=== PATIENT | female | born 1945 | race Caucasian/White ===

== ENCOUNTER 2022-07-25 21:09 | Outpatient (REF) | payer MEDICARE, SELFPAY | END 2022-07-25 21:10 | disposition home or self-care (01) | LOC: NCHCN 21:09 | PROVIDERS: Visit Provider Physician Assistant Medical | DX: R82.998 Other abnormal findings in urine; R41.0 Disorientation, unspecified | CPT/HCPCS: 87077; 87086; 87186 ==

== ENCOUNTER 2022-08-30 14:47 | Outpatient (REF) | payer MEDICARE, SELFPAY ==
[2022-08-30 22:19] LABS: Hemoglobin A1C 7.2 % (<5.7)
[2022-08-30 22:48] LABS: ALT 64 U/L (14-59); AST 41 U/L (15-37); Albumin 3.7 g/dL (3.4-5.0); Alkaline Phosphatase 172 U/L (46-116); Anion Gap 10.1 mmol/L (3-11); BUN 34 mg/dL (7-18); Bilirubin, Total 0.2 mg/dL (0.2-1.0); CO2 24.9 mmol/L (21.0-32.0); CREATININE 1.7 mg/dL (0.55-1.02); Calcium 9.3 mg/dL (8.5-10.1); Calculated LDL 168 mg/dL (<100); Chloride 107 mmol/L (98-107); Cholesterol 251 mg/dL (<200); Estimated GFR 30.89 (mL/min/1.73m2); Glucose 226 mg/dL (74-106); HDL Cholesterol 50 mg/dL (40-60); Potassium 4.9 mmol/L (3.5-5.1); Sodium 142 mmol/L (136-145); TSH 0.99 uIU/mL (0.36-3.74); Total Protein 8.1 g/dL (6.4-8.2); Triglyceride 167 mg/dL (<150)
== END 2022-08-30 14:48 | disposition home or self-care (01) ==
LOC: NCHCN 14:47
PROVIDERS: Visit Provider Physician Assistant Medical
DX: E11.9 Type 2 diabetes mellitus without complications (principal); E03.9 Hypothyroidism, unspecified; N18.30 Chronic kidney disease, stage 3 unspecified
CPT/HCPCS: 80053; 80061; 83036; 84443

== ENCOUNTER 2022-10-12 11:45 | Inpatient (IN) | payer MEDICARE, SELFPAY ==
[2022-10-12] VITALS (67 sets, daily range): BP systolic 51–109; BP diastolic 20–82; PULSE 54–120; RESP 15–35; TEMP 36.7–38; O2SAT 67–100
--- NOTE | 2022-10-12 11:45 | DI.CT_ITS ---
Exam(s) CT HEAD WO EXAM: CT HEAD WO CLINICAL HISTORY: ams vomiting. TECHNIQUE: Imaging Protocol: Axial computed tomography images with coronal and sagittal reformatted images were created and reviewed COMPARISON: No exams were available for comparison FINDINGS: There are no skull fractures. There is no fluid in the visualized paranasal sinuses. There is no evidence of intracranial hemorrhage, mass effect, or shift of midline structures. There are no extra-axial fluid collections. The ventricles are not enlarged or shifted and there is no blo od within the ventricular system nor within the basal cisterns. IMPRESSION: No acute intracranial findings on this noninfused CT scan of the brain. RADIATION DOSE DELIVERED: 728.41mGy.cm Total DLP DATA REPOSITORY: All CT scans at this facility are submitted to the National Radiology Data Registry (NRDR) Dose Index Registry (DIR) with the [employer] (ACR). RADIATION OPTIMIZATION: All CT scans at this facility use at least one of these dose optimization te chniques: automated exposure control; mA and/or kV adjustment per patient size (includes targeted exa ms where dose is matched to clinical indication); or iterative reconstruction.
--- NOTE | 2022-10-12 11:57 | W.ED.GENAD ---
Discharge Plan Disposition Patient Disposition: Admit to [facility] Condition: Stable Discharge Details Chief Complaint: GenMedical Clinical Impression: Acute pyelonephritis, Steroid-induced adrenal suppression, GAMAL (acute kidney injury), Acute dehydration ED Provider: Bart Padilla Home Meds and New Rx's Prescriptions: No Action pramipexole 1 mg Tablet 1 mg PO 1XD pantoprazole 20 mg Tablet,Delayed Release (Dr/Ec) 20 mg PO 1XD lorazepam 0.5 mg Tablet 0.5 mg PO BID PRN ascorbic acid (vitamin C) [Vitamin C] 500 mg Tablet 500 mg PO 2XD mirtazapine 30 mg Tablet 30 mg PO DAILY aspirin 81 mg Tablet,Chewable 81 mg PO 1XD hydroxychloroquine 200 mg Tablet 200 mg PO 2XD sertraline 50 mg Tablet 50 mg PO DAILY insulin lispro [Humalog Pen] 100 unit/mL Insulin Pen 1 sliding scale dose SUBCUT USEASDIRECTD Rx Instructions: am + supper pregabalin 150 mg Capsule 150 mg PO 2XD levothyroxine 112 mcg Capsule 112 mcg PO 1XD cranberry 450 mg Tablet 450 mg PO BID Rx Instructions: administer with meals Toujeo Max U-300 SoloStar 300 unit/mL (3 mL) Insulin Pen 1 unit SUBCUT 1XD Rx Instructions: bedtime Medical Decision Making 76-year-old female history of lupus and diabetes brought in for evaluation of vomiting altered mental status and hypotension in the field; history physical limited by patient's mental status and clinical status, appears pale dry confused and mildly uncomfortable. Emesis on face and clothing. Consider bacterial infection such as UTI pneumonia intra-abdominal infection versus intracranial process such as bleed or trauma versus viral syndrome versus metabolic derangement versus dehydration or DKA. Screening labs imaging fluids empiric antibiotics blood cultures. Admission likely. 13: 39 systolic blood pressures in the 70s, adding a second liter of normal saline. Of note discussed recent history with daughter, patient been on long-term steroids over the last 3 weeks and recently stopped 3 days ago. Consider hypoadrenergic state in the setting of withdrawal of recent steroid therapy. Likely component of viral bacterial infection. History of cholecystectomy noted derangement of her LFTs. Pending CT abdomen pelvis and head. Discussed goals of care with patient and family patient is full code 15: 46 improvement of mental status and perfusion after stress dose steroid dose hydrocortisone 100 mg IV. We will continue with fluid hydration as patient still appears dry clinically and is in no respiratory distress and is putting out good urine. Evidence of pyelonephritis given UTI and CT findings. Will admit for continued hydration and antibiotics HPI General Date/Time Provider Initiated Documentation: 10/12/22 11:45. HPI Narrative: 76-year-old female history of lupus, diabetes presents brought in for evaluation of low blood pressure vomiting and altered mental status. Related Data Home Medications Medication Instructions Recorded Confirmed ascorbic acid (vitamin C) 500 mg 500 mg PO 2XD 10/12/22 10/12/22 tablet (Vitamin C) aspirin 81 mg chewable tablet 81 mg PO 1XD 10/12/22 10/12/22 cranberry fruit 450 mg tablet 450 mg PO BID 10/12/22 10/12/22 (cranberry) hydroxychloroquine 200 mg tablet 200 mg PO 2XD 10/12/22 10/12/22 insulin glargine U-300 conc 300 1 unit subcut 1XD 10/12/22 10/12/22 unit/mL (3 mL) subcutaneous pen (Toujeo Max U-300 SoloStar) insulin lispro 100 unit/mL 1 sliding scale dose subcut 10/12/22 10/12/22 subcutaneous pen USEASDIRECTD levothyroxine 112 mcg capsule 112 mcg PO 1XD 10/12/22 10/12/22 lorazepam 0.5 mg tablet 0.5 mg PO BID PRN 10/12/22 10/12/22 mirtazapine 30 mg tablet 30 mg PO DAILY 10/12/22 10/12/22 pantoprazole 20 mg tablet,delayed 20 mg PO 1XD 10/12/22 10/12/22 release pramipexole 1 mg tablet 1 mg PO 1XD 10/12/22 10/12/22 pregabalin 150 mg capsule 150 mg PO 2XD 10/12/22 10/12/22 sertraline 50 mg tablet 50 mg PO DAILY 10/12/22 10/12/22 Allergies Allergy/AdvReac Type Severity Reaction Status Date / Time adhesive tape Allergy Unverified 10/12/22 12:20 naproxen Allergy Unverified 10/12/22 12:20 Penicillins Allergy Unverified 10/12/22 12:20 Sulfa (Sulfonamide Allergy Unverified 10/12/22 12:20 Antibiotics) zolpidem [From Ambien] Allergy Unverified 10/12/22 12:20 General Stated Complaint: GenMedical TRAE: 2 Review of Systems Narrative: Review of Systems Constitutional: negative Eyes: negative ENT: negative Cardiovascular: negative Respiratory: negative Gastrointestinal: Vomiting : negative Musculoskeletal: negative Skin: negative Neurologic: AMS Psych: negative PFSH All Active Problems (Updated 10/12/22 @ 16:14 by Bart Padilla MD) Acute pyelonephritis (Acute) Steroid-induced adrenal suppression (Acute) GAMAL (acute kidney injury) (Acute) Acute dehydration (Acute) Social History Smoking/Tobacco Use Status: Never Smoking risk assessment performed?: Yes Alcohol Intake: current Drug use: Never Substance use type: does not use Do you feel safe at home: Yes Do you feel safe in your relationship?: Yes Exam Narrative Exam Narrative: Physical Examination General: Confused, fatigued HEENT: normocephalic, atraumatic; PERRL, EOM intact, conjunctiva normal; dry oral mucosa Neck: supple, trachea midline; full ROM Chest: normal to inspection Respiratory: normal respiratory effort, speaking in full sentences, clear to auscultation, no wheezing, rales or rhonchi Cardiac: regular rate, regular rhythm, S1S2 intact, no murmurs rubs or gallops GI: abdomen soft, non-tender, non-distended; no palpable mass or hepatosplenomegaly; emesis on clothing and face Skin: Pallor, dry Neuro: Disoriented however following commands Extremities: No signs of trauma Course Vital Signs Vital signs: Vital Signs Temperature 37.4 C 10/12/22 11:48 Pulse 90 10/12/22 11:48 Respiratory Rate 30 H 10/12/22 11:48 Blood Pressure 109/61 10/12/22 11:48 Pulse Oximetry 95 10/12/22 11:48 Temperature 37.4 C 10/12/22 11:48 Temperature Source Oral 10/12/22 11:48 Pulse 90 10/12/22 11:48 Respiratory Rate 30 H 10/12/22 11:48 Blood Pressure 109/61 10/12/22 11:48 Pulse Oximetry 95 10/12/22 11:48 Oxygen Delivery Method Room Air 10/12/22 11:48 Oxygen Flow Rate 0 10/12/22 11:48 Pain Level 0 10/12/22 11:48 Lab/Test Results Lab/Test Results: 10/12/22 11:50 Blood Blood Culture - Pending 10/12/22 11:50 Blood Blood Culture - Pending
[2022-10-12] MEDS: CEFEPIME 2 GM in Normal Saline 100 ML IVPB (12:08)
[2022-10-12] MEDS: Ondansetron 4 MG/2 ML VIAL IVP (12:08)
[2022-10-12] MEDS: Normal Saline 1,000 ML 1000 ML IV ×3 (12:09→23:25)
[2022-10-12 12:25] LABS: BE (Venous) -7 mmol/L (-2-3); HCO3 (Venous) 19 mmol/L (23-28); O2 Sat (Venous) 32 %; TCO2 (Venous) 18 mmol/L (24-29); pCO2 (Venous) 37 mmHg (41-51); pH (Venous) 7.33 (7.31-7.41); pO2 (Venous) 20 mmHg
[2022-10-12 12:29] LABS: HCT 38.2 % (36.0-46.0); HGB 12.8 g/dL (11.2-15.7); MCH 29.4 pg (27.0-33.0); MCHC 33.5 % (32.0-36.0); MCV 88 fL (80-95); MPV 11.2 fL (8.0-11.0); RBC 4.35 10^6/uL (3.93-5.22); RDW 14.6 % (11.7-14.6); RDW-SD 47.3 fL; WBC 8.46 10^3/uL (4.4-10.8)
[2022-10-12] MEDS: VANCOMYCIN/WATER (PEG) 1.5 GM/300 ML BAG IV (12:37)
[2022-10-12 12:50] LABS: Absolute Basophil Count 0.08 10^3/uL (0.0-0.2); Absolute Lymphocyte Count 0.42 10^3/uL (1.2-3.4); Absolute Neutrophil Count 7.95 10^3/uL (1.2-6.7); Bands % 12; Diff Comment Manual Differential; Platelet Count 86 10^3/uL (130-400); RBC Morphology Normal
[2022-10-12 12:51] LABS: ALT 197 U/L (14-59); AST 195 U/L (15-37); Albumin 2.7 g/dL (3.4-5.0); Alkaline Phosphatase 201 U/L (46-116); Anion Gap 14.3 mmol/L (3-11); BUN 48 mg/dL (7-18); CO2 19.7 mmol/L (21.0-32.0); Calcium 8.6 mg/dL (8.5-10.1); Chloride 102 mmol/L (98-107); Estimated GFR 15.62 (mL/min/1.73m2); Glucose 393 mg/dL (74-106); Lipase 29 U/L (16-77); Magnesium 1.4 mg/dL (1.8-2.4); Potassium 3.6 mmol/L (3.5-5.1); Sodium 136 mmol/L (136-145); TSH (W/Ref FT4) 0.26 uIU/mL (0.36-3.74)
[2022-10-12 13:20] LABS: FREE T4 1.28 ng/dL (0.76-1.46)
[2022-10-12 13:44] LABS: Bilirubin Negative (Negative); Blood Moderate (Negative); Clarity Cloudy (Clear); Glucose Negative (Negative); Ketones Negative (Negative); Leukocyte Esterase Moderate (Negative); Nitrite Negative (Negative)
[2022-10-12 13:52] LABS: Bacteria Many HPF (Negative); C & S Indicated? Yes; Casts 3-5 Hyaline LPF (Negative); Crystals Negative HPF (Negative); Epithelial Cells Few HPF (Negative); Mucus Negative (Negative); WBC 20-50 HPF (0-5)
--- NOTE | 2022-10-12 14:00 | DI.CT_ITS ---
Exam(s) CT ABDOMEN PELVIS WO EXAM: CT ABDOMEN PELVIS WO CLINICAL HISTORY: vomiting, ams, hypotension. TECHNIQUE: Imaging Protocol: Axial computed tomography images with coronal and sagittal reformatted images were created and reviewed CONTRAST MATERIAL: Intravenous: none Oral: None COMPARISON: No exams were available for comparison FINDINGS: VISUALIZED LUNG BASES: Mild infiltrate in both lung bases, specifically in the posterior basal segmen ts of both lower lobes. No significant pleural effusions evident.. ABDOMEN: There is no ascites. LIVER: There are no obvious focal hepatic lesions evident of this noninfused study. GALLBLADDER/BILIARY: Gallbladder is surgically absent. CBD is not dilated. PANCREAS: No evidence of pancreatic mass nor dilatation of the pancreatic duct. SPLEEN: Spleen is not enlarged. No obvious intrasplenic lesions. ADRENALS: There are no significant adrenal masses. KIDNEYS:Right kidney appears unremarkable. Left kidney is abnormal. There is a small 2 millimeter s olitary calculus in the mid-lower pole noted. There is some streaking in the region of the left jannet l pelvis and perinephric streaking on the left side noted. There is air-gas within the mid pole and inferior pole infundibulum I and there is some perinephric streaking around the inferior pole of the left kidney. There is also some air-gas with in the nondilated left ureter. There is no obvious rad iopaque calculus evident in the nondilated left ureter. A Montelongo catheter is noted in the collapsed u rinary bladder.. ABDOMINAL AORTA: Abdominal aorta is not enlarged. LYMPH NODES: There is no retroperitoneal nor paraaortic adenopathy. ABDOMINAL WALL: There are subcutaneous densities over both sides the abdomen which are associated wit h overlying skin thickening. Largest on the right side and measures approximately 6 cm wide by 1.5 c m deep. These may be hematomas from injections sites. GI: There is no evidence of bowel obstruction, free air, nor abscess. PELVIS: LYMPH NODES: There is no intrapelvic nor inguinal adenopathy. GI: No evidence of appendicitis.No evidence of sigmoid diverticulitis. URINARY BLADDER: Montelongo catheter in collapsed bladder. REPRODUCTIVE: Uterus is surgically absent. No significant adnexal masses. No free fluid in the pelv is. OSSEOUS: There are symmetrical healing fractures of both inferior pubic rami. Superior pubic rami ar e intact as are the ischial tuberosities and there are no hip fractures nor other pelvic fractures. Multiple healing left rib fractures noted. These involve the posterior aspect of the left 10th and 1 1th ribs. No obvious acute rib fractures identified There is mild loss of height of L4 vertebral body without acute features. IMPRESSION: 1. The main findings here related to the left kidney where there is streaking around the left renal p joseph and air-gas in the nondilated upper left ureter and left renal collecting system. There is a s mall 2 millimeter calculus in the mid-lower pole the left kidney noted. 2. Opposite-right kidney appears unremarkable. 3. Montelongo catheter is noted in the collapsed urinary bladder. 4. Mild infiltrates noted in both lung bases. RADIATION DOSE DELIVERED: 1,232.62mGy.cm Total DLP DATA REPOSITORY: All CT scans at this facility are submitted to the National Radiology Data Registry (NRDR) Dose Index Registry (DIR) with the [employer] (ACR). RADIATION OPTIMIZATION: All CT scans at this facility use at least one of these dose optimization te chniques: automated exposure control; mA and/or kV adjustment per patient size (includes targeted exa ms where dose is matched to clinical indication); or iterative reconstruction.
--- NOTE | 2022-10-12 14:08 | DI.RAD_ITS ---
Exam(s) XR CHEST 2V PA LATERAL EXAM: XR CHEST 2V PA LATERAL CLINICAL HISTORY: ams, hypotension. TECHNIQUE: 2D digital imaging was performed. COMPARISON: No exams were available for comparison FINDINGS: 2 views: Heart size is normal. The mediastinum is not widened. Lungs are clear. No infiltrates nor pleural effusions. IMPRESSION: No acute pulmonary findings. DATA REPOSITORY: RADIATION DOSE DELIVERED:
[2022-10-12] MEDS: Hydrocortisone SOD SUC. 100 MG VIAL IVP (14:40)
[2022-10-12] MEDS: Normal Saline 500 ML IV (16:00)
[2022-10-12] MEDS: Normal Saline 1,000 ML 999 ML IV (18:01)
--- NOTE | 2022-10-12 18:08 | HPE_ITS ---
Date of service: 10/12/22 Time of Service: 18:08 Assessment and Plan Assessment and plan (1) Septic shock: Status: Acute Assessment and plan: patient presented w/ signs and symptoms of septic shock including acute encephalopathy, GAMAL, hepatic insufficiency, however she seems to be responding to iv fluids and antibiotics and corticosteroids at stress dose levels. I would not hesitate to intiate norepinephrine for pressure support if she is unable to maintain her MAP of 65 mm or SBP over 95 mm especially if her mentation worsens or her urine output drops off. At present her cognitive impairment has improved and her urine output is picking up. she is currently on her 3rd liter of fluids. she has no hx of CHF/KS and therefore theoretically should tolerate fluids. If she has hypotension after the 3rd liter then I would start norepinephrine. I would broaden her antibiotic to include meropenem (greate anaerobic coverage and excellent coverage for Pseudomonas). She is high risk for resistant bacteria as she has been on antibiotics off and on for past several months d/t recurrent UTI'S. Also she is diabetic which increases her risks for Pseudomonas. As for the vancomycin this will be in her system for a few days given her renal failure. Vanco should cover for Staph as well as Enterococci. Critical care time spent interviewing and examining the patient, reviewing studies, discussing case with patient's nurse and consulting physicians was 60 minutes (2) Acute pyelonephritis: Status: Acute Assessment and plan: left sided emphysematous pyelonephritis, she also has stones in her left mid to lower pole of her kidney but no obstruction of her ureter on renal CT. I will ask Dr. Lerma to evaluate her as I feel that as a stone former, she may have had problems in the past w/ stones and she has urinary incontinence which suggests to me that she may have an overflow incontinence, possible DM neurogenic bladder leading to UTI'S. (3) Sepsis with acute liver failure and septic shock: Status: Acute Assessment and plan: she has acute hepatic insufficiency, i.e. shock liver, d/t her hypotension, evidenced by hyperbilirubinemia and transaminitis and low albumin. I will check her coag studies, monitor daily CMP. If transaminases do not improve then I will check hepatitis studies but most likely d/t shock liver from hypotension. (4) GAMAL (acute kidney injury): Status: Acute Assessment and plan: likely ATN from sepsis and hypotension but in the setting of chronic renal disease (baseline BUN and creatinine are 34 and 1.7 from outpatient labs on 08/30/22). No comment was made as to the size of her kidneys, except that her rigt kidney was unremarkable. (5) Chronic kidney disease: Status: Chronic Assessment and plan: likely secondary to DM. see above regarding GAMAL workup/treatment (6) Acute dehydration: Status: Acute Assessment and plan: continue LR to maintain urine output. (7) Thrombocytopenia: Status: Chronic Assessment and plan: platelets 86,000; r/o DIC (8) Steroid-induced adrenal suppression: Status: Acute Assessment and plan: patient will be treated w/ stress dose hydrocortisone 50 mg IV q8hr (9) Full code status: Status: Acute Assessment and plan: I confirmed w/ the patient regarding her wishes for life support including intubation, CPR and defibrillation. (10) DVT prophylaxis: Status: Acute Assessment and plan: heparin SC (11) Discharge planning issues: Status: Acute History of Present Illness History of Present Illness Chief Complaint: lethargic, weak, fevers Narrative: 76-year-old female with history of psoriatic arthritis has been on steroids for the last 3 months as well as a longstanding history of type 2 diabetes mellitus requiring insulin as well as a history of chronic UTIs. Patient presented to the emergency department with altered mental status and hypotension and was brought in by EMS. Workup reveals septic shock secondary to left pyelonephritis w/ GAMAL, and hepatic insufficiency but no obstructive uropaathy. History is obtained from patient as well as ER physician signout as well as the patient's daughter. Patient has been unwell for the last 3 days with progressive weakness and fatigue lethargy, nausea and vomiting. This morning the daughter found the patient to be poorly responsive having garbled speech was incoherent and incontinent of urine. Patient had nausea and vomiting and had a bout of emesis. Patient's been on recent antibiotics for UTI. Patient reportedly was hypotensive when EMS found her and found her to be tachypneic with a low-grade fever. On arrival to the ED at 1150 this morning temperature was 37.4 orally pulse was 90 and regular respirations were increased to 30 breaths/min but her oxygen saturation is 95% on room air and her BP was 109/61. However shortly after arrival she became hypotensive and this afternoon had a pressure as low as 51/25. She was given 2 L of saline which brought her blood pressure back up into the high 90s systolic. Heart rate on arrival was 94 bpm sinus rhythm she became slightly tachycardic in the low 100s with a low blood pressure. Work-up included routine labs including CBC which demonstrated normal white cell count of 8400 normal hemoglobin 12.8 g platelet count of 86,000 however she did have a leftward shift in her white cell differential. VBG was obtained showed normal pH 7.33. Blood lactate was not performed nor was a procalcitonin. Chemistries were remarkable for acute kidney injury with elevated BUN/creatinine of 48 and 3.0. Baseline level from 08/30/2022 was 34 and 1.7. Her magnesium level was low at 1.4 her potassium was normal at 3.6. She did have an elevated anion gap of 14.3 with a carbon dioxide level 19.7. LFTs were elevated clued total bilirubin of 2.0, AST 195, ALT 197, alkaline phosphatase 201. Albumin is low at 2.7. Lipase was normal at 29. Urinalysis was remarkable for cloudy urine with moderate amount of blood moderate leukocyte Estrace with 10-20 red cells and 20-50 white cells per high-power field and many bacteria. Imaging was obtained including chest x-ray that showed no acute pulmonary findings heart size was normal. CT of the abdomen pelvis performed without contrast demonstrated left kidney with streaking around the left renal pelvis and air gas in the nondilated upper left ureter and left renal collecting system consistent with pyelonephritis. She has a small 2 mm calculus in the left mid to lower pole but there is no hydroureter on that side. Right kidney was unremarkable. Some mild infiltrates are seen in both lung bases posteriorly. Treatment in the E.D. included 2 liters of saline but no vasopressors and antibiotics including cefepime and vancomycin. Patient is admitted to the intensive care unit for treatment of pyelonephritis with septic shock with acute kidney injury and acute liver injury associated with metabolic encephalopathy. Patient's mental status has improved since she has been given couple liters of IV fluids and antibiotics and Tylenol. Montelongo catheter has been placed and she is making adequate urine, she has put out 2500 mL of urine so far. Patient is a full CODE STATUS per her request. [facility] All Active Problems (Updated 10/12/22 @ 19:45 by Timothy Ray MD) Thrombocytopenia (Chronic) Full code status (Acute) Discharge planning issues (Acute) DVT prophylaxis (Acute) Chronic kidney disease (Chronic) Insulin-requiring or dependent type II diabetes mellitus (Acute) Sepsis with acute liver failure and septic shock (Acute) Septic shock (Acute) Acute pyelonephritis (Acute) Steroid-induced adrenal suppression (Acute) GAMAL (acute kidney injury) (Acute) Acute dehydration (Acute) Social History Smoking/Tobacco Use Status: Never Smoking risk assessment performed?: Yes Alcohol Intake: current Drug use: Never Substance use type: does not use Do you feel safe at home: Yes Do you feel safe in your relationship?: Yes Meds Allergies and Home Medications Allergies Allergy/AdvReac Type Severity Reaction Status Date / Time adhesive tape Allergy Unverified 10/12/22 12:20 naproxen Allergy Unverified 10/12/22 12:20 Penicillins Allergy Unverified 10/12/22 12:20 Sulfa (Sulfonamide Allergy Unverified 10/12/22 12:20 Antibiotics) zolpidem [From Ambien] Allergy Unverified 10/12/22 12:20 Home Medications Medication Instructions Recorded Confirmed Type ascorbic acid (vitamin C) 500 mg 500 mg PO 2XD 10/12/22 10/12/22 History tablet (Vitamin C) aspirin 81 mg chewable tablet 81 mg PO 1XD 10/12/22 10/12/22 History cranberry fruit 450 mg tablet 450 mg PO BID 10/12/22 10/12/22 History (cranberry) hydroxychloroquine 200 mg tablet 200 mg PO 2XD 10/12/22 10/12/22 History insulin glargine U-300 conc 300 1 unit subcut 1XD 10/12/22 10/12/22 History unit/mL (3 mL) subcutaneous pen (Toujeo Max U-300 SoloStar) insulin lispro 100 unit/mL 1 sliding scale dose subcut 10/12/22 10/12/22 History subcutaneous pen USEASDIRECTD levothyroxine 112 mcg capsule 112 mcg PO 1XD 10/12/22 10/12/22 History lorazepam 0.5 mg tablet 0.5 mg PO BID PRN 10/12/22 10/12/22 History mirtazapine 30 mg tablet 30 mg PO DAILY 10/12/22 10/12/22 History pantoprazole 20 mg tablet,delayed 20 mg PO 1XD 10/12/22 10/12/22 History release pramipexole 1 mg tablet 1 mg PO 1XD 10/12/22 10/12/22 History pregabalin 150 mg capsule 150 mg PO 2XD 10/12/22 10/12/22 History sertraline 50 mg tablet 50 mg PO DAILY 10/12/22 10/12/22 History Results Labs 10/12/22 12:15 10/12/22 12:15 Labs: Laboratory Results - last 24 hr 10/12/22 10/12/22 10/12/22 12:15 12:15 12:15 WBC 8.46 RBC 4.35 Hgb 12.8 Hct 38.2 MCV 88 MCH 29.4 MCHC 33.5 RDW 14.6 Plt Count 86 L MPV 11.2 H Immature Gran % 0.0 Neutrophils % 82.0 Band Neutrophils % 12 Lymphocytes % 5.0 Monocytes % 0.0 Eosinophils % 0.0 Basophils % 1.0 Nucleated RBC % 0.0 Absolute Neutrophils 7.95 H Absolute Lymphocytes 0.42 L Absolute Monocytes 0.00 L Absolute Eosinophils 0.00 Absolute Basophils 0.08 RBC Morphology Normal VBG pH 7.33 VBG pCO2 37 L VBG pO2 20 VBG HCO3 19 L VBG Total CO2 18 L VBG O2 Saturation 32 VBG Base Excess -7 L Sodium 136 Potassium 3.6 Chloride 102 Carbon Dioxide 19.7 L Anion Gap 14.3 H BUN 48 H Creatinine 3.0 H Est GFR (CKD-EPI 2020) 15.62 Glucose 393 H Calcium 8.6 Magnesium 1.4 L Total Bilirubin 2.0 H AST 195 H ALT 197 H Alkaline Phosphatase 201 H Total Protein 7.0 Albumin 2.7 L Lipase 29 TSH 0.26 L Free T4 1.28 Urine Color Urine Clarity Urine pH Ur Specific [place] Urine Protein Urine Ketones Urine Blood Urine Nitrite Urine Bilirubin Urine Urobilinogen Ur Leukocyte Esterase Urine RBC Urine WBC Ur Epithelial Cells Urine Crystals Urine Bacteria Urine Casts Urine Mucus Ur Culture Indicated? Urine Glucose 10/12/22 13:28 WBC RBC Hgb Hct MCV MCH MCHC RDW Plt Count MPV Immature Gran % Neutrophils % Band Neutrophils % Lymphocytes % Monocytes % Eosinophils % Basophils % Nucleated RBC % Absolute Neutrophils Absolute Lymphocytes Absolute Monocytes Absolute Eosinophils Absolute Basophils RBC Morphology VBG pH VBG pCO2 VBG pO2 VBG HCO3 VBG Total CO2 VBG O2 Saturation VBG Base Excess Sodium Potassium Chloride Carbon Dioxide Anion Gap BUN Creatinine Est GFR (CKD-EPI 2020) Glucose Calcium Magnesium Total Bilirubin AST ALT Alkaline Phosphatase Total Protein Albumin Lipase TSH Free T4 Urine Color Yellow Urine Clarity Cloudy Urine pH 5.0 Ur Specific [place] 1.020 Urine Protein 30 H Urine Ketones Negative Urine Blood Moderate H Urine Nitrite Negative Urine Bilirubin Negative Urine Urobilinogen 2.0 H Ur Leukocyte Esterase Moderate H Urine RBC 10-20 H Urine WBC 20-50 H Ur Epithelial Cells Few Urine Crystals Negative Urine Bacteria Many Urine Casts 3-5 Hyaline Urine Mucus Negative Ur Culture Indicated? Yes Urine Glucose Negative Last Vital Signs Temp 37.4 C 10/12/22 11:48 Pulse 85 10/12/22 17:01 Resp 22 10/12/22 17:10 BP 98/42 L 10/12/22 17:01 Pulse Ox 99 10/12/22 17:10 Time Spent Time spent with Patient: 55-74 minutes Time was spent: preparing to see the patient(eg.review tests), obtaining and/or reviewing separately otained hiistory, ordering medications,tests, procedures, referring, communicating with other health health care specialist, indepentently interpreting results, counseling the patient and care coordination
[2022-10-12 19:59] LABS: Lab Add On Test DONE
[2022-10-12 19:59] LABS: Lactate 4.4 mmol/L (0.6-1.4)
[2022-10-12 20:01] LABS: Lab Add On Test DONE
[2022-10-12 20:17] LABS: PTT Activated 22.3 sec (21.5-31.9); Prothrombin Time 10.5 sec (9.3-11.0)
[2022-10-12 20:20] LABS: LDH 353 U/L (81-234)
[2022-10-12 20:27] LABS: C-Reactive Protein > 25.00 mg/dL (0.0-0.3)
[2022-10-12] MEDS: Aspirin 81 MG CHEW PO (20:29)
[2022-10-12] MEDS: Ascorbic Acid 500 MG TAB PO (20:29)
[2022-10-12] MEDS: LORazepam 0.5 MG TAB PO (20:29)
[2022-10-12] MEDS: Heparin 5,000 UNITS/ML VIAL 5000 UNITS SC (20:29)
[2022-10-12] MEDS: Acetaminophen 325 MG TAB PO (20:30)
[2022-10-12] MEDS: Pantoprazole 20 MG TABCR PO (20:30)
[2022-10-12 20:33] LABS: D-Dimer > 7500 ng/mlFEU (<500)
[2022-10-12] MEDS: Levothyroxine 75 MCG TAB 112 MCG PO (20:41)
[2022-10-12] MEDS: Lactated Ringers 1,000 ML 200 ML IV (20:46)
[2022-10-12 20:57] LABS: Procalcitonin 75.8 ng/mL
[2022-10-12] MEDS: Hydrocortisone SOD SUC. 100 MG VIAL 50 MG IVP (22:10)
[2022-10-12] MEDS: Insulin Aspart 300 UNITS/3 ML PEN SC (22:27)
[2022-10-12 22:52] LABS: Lactate 3.2 mmol/L (0.6-1.4)
[2022-10-12] MEDS: MAGNESIUM SULFATE 4 GM/100 ML BAG IVPB (23:45)
[2022-10-13] VITALS (101 sets, daily range): BP systolic 74–177; BP diastolic 26–81; PULSE 40–103; RESP 6–34; TEMP 36.3–37.5; O2SAT 92–98
[2022-10-13] MEDS: Normal Saline 1,000 ML 1000 ML IV (00:30)
[2022-10-13] MEDS: Insulin Aspart 300 UNITS/3 ML PEN SC ×5 (00:42→22:26)
[2022-10-13] MEDS: Norepinephrine in D5W 8 MG/250 ML BAG 9.375 MG IV (01:15)
[2022-10-13] MEDS: Lactated Ringers 1,000 ML 200 ML IV (01:32)
[2022-10-13] MEDS: Heparin 5,000 UNITS/ML VIAL 5000 UNITS SC ×3 (04:03→22:14)
[2022-10-13 05:35] LABS: Lactate 1.6 mmol/L (0.6-1.4)
[2022-10-13 05:43] LABS: HCT 32.1 % (36.0-46.0); HGB 10.7 g/dL (11.2-15.7); MCH 29.5 pg (27.0-33.0); MCHC 33.3 % (32.0-36.0); MCV 88 fL (80-95); MPV 12.2 fL (8.0-11.0); RBC 3.63 10^6/uL (3.93-5.22); RDW 15.2 % (11.7-14.6); RDW-SD 49.7 fL
[2022-10-13 05:58] LABS: ALT 132 U/L (14-59); AST 98 U/L (15-37); Albumin 2.1 g/dL (3.4-5.0); Alkaline Phosphatase 166 U/L (46-116); BUN 49 mg/dL (7-18); Bilirubin, Total 2.2 mg/dL (0.2-1.0); CREATININE 2.6 mg/dL (0.55-1.02); Calcium 7.7 mg/dL (8.5-10.1); Chloride 111 mmol/L (98-107); Estimated GFR 18.55 (mL/min/1.73m2); Glucose 341 mg/dL (74-106); Potassium 4.4 mmol/L (3.5-5.1); Sodium 143 mmol/L (136-145); Total Protein 5.8 g/dL (6.4-8.2)
[2022-10-13 06:23] LABS: Absolute Lymphocyte Count 0.46 10^3/uL (1.2-3.4); Absolute Monocyte Count 0.31 10^3/uL (0.1-0.8); Absolute Neutrophil Count 14.32 10^3/uL (1.2-6.7); Bands % 24; Platelet Count 72 10^3/uL (130-400)
[2022-10-13 06:24] LABS: Anisocytosis 1+; Diff Comment Manual Differential; Metamyelocytes % 2
--- NOTE | 2022-10-13 06:56 | W.PULMCC ---
General Date of Service Date of service: 10/13/22 Time of Service: 06:56 Reason for Admission to ICU: Septic Shock Assessment and Plan Assessment and plan (1) Septic shock: Status: Acute (2) Gram-negative bacteremia: Status: Acute (3) Thrombocytopenia: Status: Chronic (4) Acute pyelonephritis: Status: Acute (5) Leukocytosis: Status: Acute (6) Anemia: Status: Chronic (7) Lactic acidosis: Status: Acute (8) Acute renal failure superimposed on chronic kidney disease: Status: Acute (9) Metabolic acidosis: Status: Acute (10) High anion gap metabolic acidosis: Status: Acute (11) Normal anion gap metabolic acidosis: Status: Acute (12) Hyperglycemia: Status: Acute (13) Insulin-requiring or dependent type II diabetes mellitus: Status: Acute (14) Elevated transaminase level: Status: Acute (15) Hypocalcemia: Status: Acute (16) Hypoalbuminemia: Status: Acute Assessment and plan: This is a 76 yo with chronic diarrhea and recurrent UTI's admitted to the ICU for septic shock due to pyelonephritis, found to have gram negative jimbo bacteremia. She is on meropenem, which is reasonable given recurrent UTI's and antibiotic courses (until speciation of bacteria). Urology has seen the patient and has a low threshold for stent placement if she gets worse or stops improving. She is on a very low dose of Levophed and hopefully this can liberated today. Her glucose has been uncontrollably high and so I started a non DKA insulin infusion to target fingersticks of 140-180. She is on stress dose steroids, which can be quickly weaned off after her blood pressure is more stabilized (and she is off levophed). Her POCUS found a plethoric IVC and so I stopped the IVF's as I do think between the POCUS and physical exam she is not hypovolemic at this time. Recommendations Pulmonary: No acute concerns Cardiac: Septic Shock - on levophed, target MAP 65mmHg - on stress dose steroids - can wean off once liberated from pressors - s/p IVF resuscitation Renal: Acute on Chronic Kidney Disease - pre-renal due to hypotension most likely - strict I/O's - Reaves - continue to monitor UOP AGMA and NAGMA - due to lactic acidosis, and renal failure - can consider bicarb ampule vs isotonic bicab infusion if not improving on next lab draw Lactic acidosis - improved with resuscitation and BP management Hypocalcemia - partially dilutional, continue to monitor Hypoalbuminemia - continue to monitor I&O: Intake & Output 10/10/22 10/11/22 10/12/22 10/13/22 23:59 23:59 23:59 23:59 Intake Total 8470 / 8470 3129.115 / 3129.115 Output Total 2735 / 2760 795 / 795 Balance 5735 / 5710 2334.115 / 2334.115 Weight 82.8 kg 87 kg Daily Fluid Goal:: even GI Nutrition: Nutrition - ok for diabetic diet Elevated LFT's - likely due to hypotension - continue to monitor Date of Last Bowel Movement: 10/12/22 Infectious Disease: Pyelonephritis - on meropenem - Urology on board - Reaves Gram negative jimbo bacteremia - await speciation, continue meropenem for now Hematologic: Leukocytosis - due to infection Thrombocytopenia - due to sepsis Neurologic: No acute concerns Endocrine: Hyperglycemia - Lantus 10U daily - non DKA insulin infusion - goal glucose 140-180 Lines: PIV Reaves Prophylaxis: Hepain Code Status: Resuscitation Status Full Code Subjective Critical and life-threatening events over the past 24 hours: This is a 76 yo with chronic diarrhea and recurrent UTI's who is admitted to the ICU for septic shock due to gram negative jimbo bacteremia and pyelonephritis. She is receiving meropenem, was on fluid and Levophed. Urology has seen the patient and has a low threshold for stent placement, however in the current setting of clinical improvement there is immediate need for this. Dalia states she is feeling better than when she came in. She denies abdominal pain, but does complain of head pain from her fall (head CT negative). Exam Narrative Exam Narrative: Gen: NAD, normal respiratory effort, well-nourished HENT: PERRL, No JVD Chest: No respiratory distress, normal appearance of chest, clear to auscultation bilaterally, no crackles or wheezes, normal inspiratory effort Heart: regular rate but irregular rhythm, no murmurs, rubs or gallops Abdomen: Non-distended, soft, non tender Extremities: No clubbing, trace edema, cyanosis, rashes Neuro: AAOx3 , non focal Psych: cooperative, appropriate mental affect Most Recent VS/Results Last Vital Signs Temp 37.0 C 10/13/22 04:31 Pulse 67 10/13/22 06:31 Resp 20 10/13/22 06:31 BP 177/61 H 10/13/22 06:31 Pulse Ox 96 10/13/22 06:31 Laboratory Results - last 24 hr 10/12/22 10/12/22 10/12/22 12:15 12:15 12:15 WBC 8.46 RBC 4.35 Hgb 12.8 Hct 38.2 MCV 88 MCH 29.4 MCHC 33.5 RDW 14.6 Plt Count 86 L MPV 11.2 H Immature Gran % 0.0 Neutrophils % 82.0 Band Neutrophils % 12 Lymphocytes % 5.0 Monocytes % 0.0 Eosinophils % 0.0 Basophils % 1.0 Metamyelocytes % Nucleated RBC % 0.0 Absolute Neutrophils 7.95 H Absolute Lymphocytes 0.42 L Absolute Monocytes 0.00 L Absolute Eosinophils 0.00 Absolute Basophils 0.08 RBC Morphology Normal Anisocytosis PT INR APTT Fibrinogen D-Dimer VBG pH 7.33 VBG pCO2 37 L VBG pO2 20 VBG HCO3 19 L VBG Total CO2 18 L VBG O2 Saturation 32 VBG Base Excess -7 L VBG Lactate Sodium 136 Potassium 3.6 Chloride 102 Carbon Dioxide 19.7 L Anion Gap 14.3 H BUN 48 H Creatinine 3.0 H Est GFR (CKD-EPI 2020) 15.62 Glucose 393 H Calcium 8.6 Magnesium 1.4 L Total Bilirubin 2.0 H AST 195 H ALT 197 H Alkaline Phosphatase 201 H Lactate Dehydrogenase C-Reactive Protein Total Protein 7.0 Albumin 2.7 L Lipase 29 Procalcitonin TSH 0.26 L Free T4 1.28 Urine Color Urine Clarity Urine pH Ur Specific [place] Urine Protein Urine Ketones Urine Blood Urine Nitrite Urine Bilirubin Urine Urobilinogen Ur Leukocyte Esterase Urine RBC Urine WBC Ur Epithelial Cells Urine Crystals Urine Bacteria Urine Casts Urine Mucus Ur Culture Indicated? Urine Glucose Add-On Test Request 10/12/22 10/12/22 10/12/22 13:28 19:07 19:44 WBC RBC Hgb Hct MCV MCH MCHC RDW Plt Count MPV Immature Gran % Neutrophils % Band Neutrophils % Lymphocytes % Monocytes % Eosinophils % Basophils % Metamyelocytes % Nucleated RBC % Absolute Neutrophils Absolute Lymphocytes Absolute Monocytes Absolute Eosinophils Absolute Basophils RBC Morphology Anisocytosis PT INR APTT Fibrinogen Cancelled D-Dimer VBG pH VBG pCO2 VBG pO2 VBG HCO3 VBG Total CO2 VBG O2 Saturation VBG Base Excess VBG Lactate Sodium Potassium Chloride Carbon Dioxide Anion Gap BUN Creatinine Est GFR (CKD-EPI 2020) Glucose Calcium Magnesium Total Bilirubin AST ALT Alkaline Phosphatase Lactate Dehydrogenase C-Reactive Protein Total Protein Albumin Lipase Procalcitonin TSH Free T4 Urine Color Yellow Urine Clarity Cloudy Urine pH 5.0 Ur Specific [place] 1.020 Urine Protein 30 H Urine Ketones Negative Urine Blood Moderate H Urine Nitrite Negative Urine Bilirubin Negative Urine Urobilinogen 2.0 H Ur Leukocyte Esterase Moderate H Urine RBC 10-20 H Urine WBC 20-50 H Ur Epithelial Cells Few Urine Crystals Negative Urine Bacteria Many Urine Casts 3-5 Hyaline Urine Mucus Negative Ur Culture Indicated? Yes Urine Glucose Negative Add-On Test Request DONE 10/12/22 10/12/22 10/12/22 19:45 19:47 19:47 WBC RBC Hgb Hct MCV MCH MCHC RDW Plt Count MPV Immature Gran % Neutrophils % Band Neutrophils % Lymphocytes % Monocytes % Eosinophils % Basophils % Metamyelocytes % Nucleated RBC % Absolute Neutrophils Absolute Lymphocytes Absolute Monocytes Absolute Eosinophils Absolute Basophils RBC Morphology Anisocytosis PT 10.5 INR 1.0 APTT 22.3 Fibrinogen D-Dimer VBG pH VBG pCO2 VBG pO2 VBG HCO3 VBG Total CO2 VBG O2 Saturation VBG Base Excess VBG Lactate 4.4 H* Sodium Potassium Chloride Carbon Dioxide Anion Gap BUN Creatinine Est GFR (CKD-EPI 2020) Glucose Calcium Magnesium Total Bilirubin AST ALT Alkaline Phosphatase Lactate Dehydrogenase C-Reactive Protein Total Protein Albumin Lipase Procalcitonin TSH Free T4 Urine Color Urine Clarity Urine pH Ur Specific [place] Urine Protein Urine Ketones Urine Blood Urine Nitrite Urine Bilirubin Urine Urobilinogen Ur Leukocyte Esterase Urine RBC Urine WBC Ur Epithelial Cells Urine Crystals Urine Bacteria Urine Casts Urine Mucus Ur Culture Indicated? Urine Glucose Add-On Test Request DONE 10/12/22 10/12/22 10/12/22 19:47 19:47 19:47 WBC RBC Hgb Hct MCV MCH MCHC RDW Plt Count MPV Immature Gran % Neutrophils % Band Neutrophils % Lymphocytes % Monocytes % Eosinophils % Basophils % Metamyelocytes % Nucleated RBC % Absolute Neutrophils Absolute Lymphocytes Absolute Monocytes Absolute Eosinophils Absolute Basophils RBC Morphology Anisocytosis PT INR APTT Fibrinogen D-Dimer > 7500 H VBG pH VBG pCO2 VBG pO2 VBG HCO3 VBG Total CO2 VBG O2 Saturation VBG Base Excess VBG Lactate Sodium Potassium Chloride Carbon Dioxide Anion Gap BUN Creatinine Est GFR (CKD-EPI 2020) Glucose Calcium Magnesium Total Bilirubin AST ALT Alkaline Phosphatase Lactate Dehydrogenase C-Reactive Protein > 25.00 H Total Protein Albumin Lipase Procalcitonin 75.8 TSH Free T4 Urine Color Urine Clarity Urine pH Ur Specific [place] Urine Protein Urine Ketones Urine Blood Urine Nitrite Urine Bilirubin Urine Urobilinogen Ur Leukocyte Esterase Urine RBC Urine WBC Ur Epithelial Cells Urine Crystals Urine Bacteria Urine Casts Urine Mucus Ur Culture Indicated? Urine Glucose Add-On Test Request 10/12/22 10/12/22 10/13/22 19:47 22:40 05:25 WBC RBC Hgb Hct MCV MCH MCHC RDW Plt Count MPV Immature Gran % Neutrophils % Band Neutrophils % Lymphocytes % Monocytes % Eosinophils % Basophils % Metamyelocytes % Nucleated RBC % Absolute Neutrophils Absolute Lymphocytes Absolute Monocytes Absolute Eosinophils Absolute Basophils RBC Morphology Anisocytosis PT INR APTT Fibrinogen D-Dimer VBG pH VBG pCO2 VBG pO2 VBG HCO3 VBG Total CO2 VBG O2 Saturation VBG Base Excess VBG Lactate 3.2 H* 1.6 H Sodium Potassium Chloride Carbon Dioxide Anion Gap BUN Creatinine Est GFR (CKD-EPI 2020) Glucose Calcium Magnesium Total Bilirubin AST ALT Alkaline Phosphatase Lactate Dehydrogenase 353 H C-Reactive Protein Total Protein Albumin Lipase Procalcitonin TSH Free T4 Urine Color Urine Clarity Urine pH Ur Specific [place] Urine Protein Urine Ketones Urine Blood Urine Nitrite Urine Bilirubin Urine Urobilinogen Ur Leukocyte Esterase Urine RBC Urine WBC Ur Epithelial Cells Urine Crystals Urine Bacteria Urine Casts Urine Mucus Ur Culture Indicated? Urine Glucose Add-On Test Request 10/13/22 10/13/22 05:25 05:25 WBC 15.40 H RBC 3.63 L Hgb 10.7 L D Hct 32.1 L MCV 88 MCH 29.5 MCHC 33.3 RDW 15.2 H Plt Count 72 L MPV 12.2 H Immature Gran % See Differential Neutrophils % 69.0 Band Neutrophils % 24 Lymphocytes % 3.0 Monocytes % 2.0 Eosinophils % 0.0 Basophils % 0.0 Metamyelocytes % 2 Nucleated RBC % 0.0 Absolute Neutrophils 14.32 H Absolute Lymphocytes 0.46 L Absolute Monocytes 0.31 Absolute Eosinophils 0.00 Absolute Basophils 0.00 RBC Morphology See Below Anisocytosis 1+ PT INR APTT Fibrinogen D-Dimer VBG pH VBG pCO2 VBG pO2 VBG HCO3 VBG Total CO2 VBG O2 Saturation VBG Base Excess VBG Lactate Sodium 143 Potassium 4.4 Chloride 111 H Carbon Dioxide 14.0 L Anion Gap 18.0 H BUN 49 H Creatinine 2.6 H Est GFR (CKD-EPI 2020) 18.55 Glucose 341 H Calcium 7.7 L Magnesium Total Bilirubin 2.2 H AST 98 H ALT 132 H Alkaline Phosphatase 166 H Lactate Dehydrogenase C-Reactive Protein Total Protein 5.8 L Albumin 2.1 L Lipase Procalcitonin TSH Free T4 Urine Color Urine Clarity Urine pH Ur Specific [place] Urine Protein Urine Ketones Urine Blood Urine Nitrite Urine Bilirubin Urine Urobilinogen Ur Leukocyte Esterase Urine RBC Urine WBC Ur Epithelial Cells Urine Crystals Urine Bacteria Urine Casts Urine Mucus Ur Culture Indicated? Urine Glucose Add-On Test Request Review of Systems All systems reviewed & are unremarkable except as noted in HPI and below Time spent with patient Time spent in Critical Care: 60 Time spent in Critical care included: Performing procedures not included in c.c time, Chart review, Documenting critically ill care, Time at immediate bedside and Discussing critically ill care with other medical staff Pocus Exam Limited Cardiac Exam DATE OF EXAM: 10/13/22 TIME OF EXAM: 07:30 PROVIDER THAT PERFORMED THE STUDY: Marilee Garcia IS THIS A REPEAT EXAM DURING THIS ENCOUNTER: no REASON FOR EXAM: Hypotension and Septic Shock VISUALIZED STRUCTURES: four chambers, left atrium, left ventricle, LVOT, right atrium, right ventricle, aortic valve, mitral valve, Interventricular septum and IVC VIEW OBTAINED: Apical 4-Chamber, Parasternal long-axis, Parasternal short-axis and Subxiphoid PERTINENT FINDINGS/IMPRESSION: Plethoric IVC; No LV dysfunction, No pericardial effusion, No RV dilation and No RV dysfunction Exam complete Multi-Disciplinary Checklist Lines/Tubes CENTRAL LINE: no ARTERIAL LINE: no REAVES: yes, Reaves Day#: 1 ENDOTRACHEAL TUBE: no ICU Maintenance GLUCOSE 140-180mg/dL: no, Reason/Intervention: insulin infusion started NUTRITION AT GOAL: yes PRESSURE ULCER: yes, Sacral, present on admission RESTRAINTS: no ANTIBIOTICS(if yes, consider Stewardship): Yes Social Issues FAMILY UPDATED: no, Reason/Intervention: defer to hospitalist team PT/OT: no, Reason/Intervention: currently not appropriate GOALS/DISPOSITION/SUPERVISOR FORMING DEPARTMENT: yes CODE STATUS: Full Prophylaxis DVT PROPHYLAXIS: yes GI PROPHYLAXIS: no
--- NOTE | 2022-10-13 07:12 | W.UROLOGYCON ---
Date of service: 10/13/22 Time of Service: 07:40 Assessment and Plan Assessment and plan (1) Acute pyelonephritis: Status: Acute Assessment and plan: I do not see any definite hydronephrosis or abscess that would require immediate drainage, but with the air in her collecting system, I would have a very low tolerance for placing a left ureteral stent to ensure maximal drainage of the kidney. So far, she seems to be improving clinically, but if the improvement stops, we will be prepared to place a stent. During this acute phase, a [place] catheter for bladder drainage is appropriate. As she improves and we are able to remove her catheter, we can further assess her voiding function. Both urinary incontinence and incomplete bladder emptying are known risk factors for recurrent UTIs. Once urine for action clears and she returns to her baseline functioning, we can evaluate her voiding function in the office setting. History of Present Illness History of Present Illness Chief Complaint: Left pyelonephritis Narrative: This is a 76-year-old woman who has a history of diabetes mellitus, recurrent urinary tract infections and psoriatic arthritis's. She is followed by the endocrinology and rheumatology services at [facility]. She has been on steroids for her psoriatic arthritis for the past few months. She presented to the emergency department yesterday with mental status changes. She was found to have sepsis and renal insufficiency. 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 No large kidney stone or obstructive process is identified. She is currently on broad-spectrum antibiotics. Her cultures are showing gram-negative's in the urine and blood. Review of Systems Unobtainable due to mental status PFSH All Active Problems (Updated 10/20/22 @ 00:04 by DAIN AVINA) Chronic kidney disease (Chronic) Insulin-requiring or dependent type II diabetes mellitus (Acute) Sepsis with acute liver failure and septic shock (Acute) Septic shock (Acute) Acute pyelonephritis (Acute) Steroid-induced adrenal suppression (Acute) Social History Smoking/Tobacco Use Status: Never Smoking risk assessment performed?: Yes Alcohol Intake: current Drug use: Never Substance use type: does not use Do you feel safe at home: Yes Do you feel safe in your relationship?: Yes Exam Narrative Exam Narrative: Her vital signs are documented elsewhere in the chart Her abdomen is soft with no peritoneal signs Her [place] catheter is draining cloudy urine I have been able to find to previous positive urine cultures (1 here at [facility] and 1 at [facility]). Both cultures grew E. coli. I reviewed her CT scan on the PACS system. I do not see any hydronephrosis or perinephric abscess that might require drainage, but she does have air in the collecting system and ureter on the left Results Last Vital Signs Temp 37.0 C 10/13/22 04:31 Pulse 67 10/13/22 06:31 Resp 20 10/13/22 06:31 BP 177/61 H 10/13/22 06:31 Pulse Ox 96 10/13/22 06:31 Labs 10/19/22 06:28 10/19/22 06:28 Labs: Laboratory Results - last 24 hr 10/12/22 10/12/22 10/12/22 12:15 12:15 12:15 WBC 8.46 RBC 4.35 Hgb 12.8 Hct 38.2 MCV 88 MCH 29.4 MCHC 33.5 RDW 14.6 Plt Count 86 L MPV 11.2 H Immature Gran % 0.0 Neutrophils % 82.0 Band Neutrophils % 12 Lymphocytes % 5.0 Monocytes % 0.0 Eosinophils % 0.0 Basophils % 1.0 Metamyelocytes % Nucleated RBC % 0.0 Absolute Neutrophils 7.95 H Absolute Lymphocytes 0.42 L Absolute Monocytes 0.00 L Absolute Eosinophils 0.00 Absolute Basophils 0.08 RBC Morphology Normal Anisocytosis PT INR APTT Fibrinogen D-Dimer VBG pH 7.33 VBG pCO2 37 L VBG pO2 20 VBG HCO3 19 L VBG Total CO2 18 L VBG O2 Saturation 32 VBG Base Excess -7 L VBG Lactate Sodium 136 Potassium 3.6 Chloride 102 Carbon Dioxide 19.7 L Anion Gap 14.3 H BUN 48 H Creatinine 3.0 H Est GFR (CKD-EPI 2020) 15.62 Glucose 393 H Calcium 8.6 Magnesium 1.4 L Total Bilirubin 2.0 H AST 195 H ALT 197 H Alkaline Phosphatase 201 H Lactate Dehydrogenase C-Reactive Protein Total Protein 7.0 Albumin 2.7 L Lipase 29 Procalcitonin TSH 0.26 L Free T4 1.28 Urine Color Urine Clarity Urine pH Ur Specific [place] Urine Protein Urine Ketones Urine Blood Urine Nitrite Urine Bilirubin Urine Urobilinogen Ur Leukocyte Esterase Urine RBC Urine WBC Ur Epithelial Cells Urine Crystals Urine Bacteria Urine Casts Urine Mucus Ur Culture Indicated? Urine Glucose Add-On Test Request 10/12/22 10/12/22 10/12/22 13:28 19:07 19:44 WBC RBC Hgb Hct MCV MCH MCHC RDW Plt Count MPV Immature Gran % Neutrophils % Band Neutrophils % Lymphocytes % Monocytes % Eosinophils % Basophils % Metamyelocytes % Nucleated RBC % Absolute Neutrophils Absolute Lymphocytes Absolute Monocytes Absolute Eosinophils Absolute Basophils RBC Morphology Anisocytosis PT INR APTT Fibrinogen Cancelled D-Dimer VBG pH VBG pCO2 VBG pO2 VBG HCO3 VBG Total CO2 VBG O2 Saturation VBG Base Excess VBG Lactate Sodium Potassium Chloride Carbon Dioxide Anion Gap BUN Creatinine Est GFR (CKD-EPI 2020) Glucose Calcium Magnesium Total Bilirubin AST ALT Alkaline Phosphatase Lactate Dehydrogenase C-Reactive Protein Total Protein Albumin Lipase Procalcitonin TSH Free T4 Urine Color Yellow Urine Clarity Cloudy Urine pH 5.0 Ur Specific [place] 1.020 Urine Protein 30 H Urine Ketones Negative Urine Blood Moderate H Urine Nitrite Negative Urine Bilirubin Negative Urine Urobilinogen 2.0 H Ur Leukocyte Esterase Moderate H Urine RBC 10-20 H Urine WBC 20-50 H Ur Epithelial Cells Few Urine Crystals Negative Urine Bacteria Many Urine Casts 3-5 Hyaline Urine Mucus Negative Ur Culture Indicated? Yes Urine Glucose Negative Add-On Test Request DONE 10/12/22 10/12/22 10/12/22 19:45 19:47 19:47 WBC RBC Hgb Hct MCV MCH MCHC RDW Plt Count MPV Immature Gran % Neutrophils % Band Neutrophils % Lymphocytes % Monocytes % Eosinophils % Basophils % Metamyelocytes % Nucleated RBC % Absolute Neutrophils Absolute Lymphocytes Absolute Monocytes Absolute Eosinophils Absolute Basophils RBC Morphology Anisocytosis PT 10.5 INR 1.0 APTT 22.3 Fibrinogen D-Dimer VBG pH VBG pCO2 VBG pO2 VBG HCO3 VBG Total CO2 VBG O2 Saturation VBG Base Excess VBG Lactate 4.4 H* Sodium Potassium Chloride Carbon Dioxide Anion Gap BUN Creatinine Est GFR (CKD-EPI 2020) Glucose Calcium Magnesium Total Bilirubin AST ALT Alkaline Phosphatase Lactate Dehydrogenase C-Reactive Protein Total Protein Albumin Lipase Procalcitonin TSH Free T4 Urine Color Urine Clarity Urine pH Ur Specific [place] Urine Protein Urine Ketones Urine Blood Urine Nitrite Urine Bilirubin Urine Urobilinogen Ur Leukocyte Esterase Urine RBC Urine WBC Ur Epithelial Cells Urine Crystals Urine Bacteria Urine Casts Urine Mucus Ur Culture Indicated? Urine Glucose Add-On Test Request DONE 10/12/22 10/12/22 10/12/22 19:47 19:47 19:47 WBC RBC Hgb Hct MCV MCH MCHC RDW Plt Count MPV Immature Gran % Neutrophils % Band Neutrophils % Lymphocytes % Monocytes % Eosinophils % Basophils % Metamyelocytes % Nucleated RBC % Absolute Neutrophils Absolute Lymphocytes Absolute Monocytes Absolute Eosinophils Absolute Basophils RBC Morphology Anisocytosis PT INR APTT Fibrinogen D-Dimer > 7500 H VBG pH VBG pCO2 VBG pO2 VBG HCO3 VBG Total CO2 VBG O2 Saturation VBG Base Excess VBG Lactate Sodium Potassium Chloride Carbon Dioxide Anion Gap BUN Creatinine Est GFR (CKD-EPI 2020) Glucose Calcium Magnesium Total Bilirubin AST ALT Alkaline Phosphatase Lactate Dehydrogenase C-Reactive Protein > 25.00 H Total Protein Albumin Lipase Procalcitonin 75.8 TSH Free T4 Urine Color Urine Clarity Urine pH Ur Specific [place] Urine Protein Urine Ketones Urine Blood Urine Nitrite Urine Bilirubin Urine Urobilinogen Ur Leukocyte Esterase Urine RBC Urine WBC Ur Epithelial Cells Urine Crystals Urine Bacteria Urine Casts Urine Mucus Ur Culture Indicated? Urine Glucose Add-On Test Request 10/12/22 10/12/22 10/13/22 19:47 22:40 05:25 WBC RBC Hgb Hct MCV MCH MCHC RDW Plt Count MPV Immature Gran % Neutrophils % Band Neutrophils % Lymphocytes % Monocytes % Eosinophils % Basophils % Metamyelocytes % Nucleated RBC % Absolute Neutrophils Absolute Lymphocytes Absolute Monocytes Absolute Eosinophils Absolute Basophils RBC Morphology Anisocytosis PT INR APTT Fibrinogen D-Dimer VBG pH VBG pCO2 VBG pO2 VBG HCO3 VBG Total CO2 VBG O2 Saturation VBG Base Excess VBG Lactate 3.2 H* 1.6 H Sodium Potassium Chloride Carbon Dioxide Anion Gap BUN Creatinine Est GFR (CKD-EPI 2020) Glucose Calcium Magnesium Total Bilirubin AST ALT Alkaline Phosphatase Lactate Dehydrogenase 353 H C-Reactive Protein Total Protein Albumin Lipase Procalcitonin TSH Free T4 Urine Color Urine Clarity Urine pH Ur Specific [place] Urine Protein Urine Ketones Urine Blood Urine Nitrite Urine Bilirubin Urine Urobilinogen Ur Leukocyte Esterase Urine RBC Urine WBC Ur Epithelial Cells Urine Crystals Urine Bacteria Urine Casts Urine Mucus Ur Culture Indicated? Urine Glucose Add-On Test Request 10/13/22 10/13/22 05:25 05:25 WBC 15.40 H RBC 3.63 L Hgb 10.7 L D Hct 32.1 L MCV 88 MCH 29.5 MCHC 33.3 RDW 15.2 H Plt Count 72 L MPV 12.2 H Immature Gran % See Differential Neutrophils % 69.0 Band Neutrophils % 24 Lymphocytes % 3.0 Monocytes % 2.0 Eosinophils % 0.0 Basophils % 0.0 Metamyelocytes % 2 Nucleated RBC % 0.0 Absolute Neutrophils 14.32 H Absolute Lymphocytes 0.46 L Absolute Monocytes 0.31 Absolute Eosinophils 0.00 Absolute Basophils 0.00 RBC Morphology See Below Anisocytosis 1+ PT INR APTT Fibrinogen D-Dimer VBG pH VBG pCO2 VBG pO2 VBG HCO3 VBG Total CO2 VBG O2 Saturation VBG Base Excess VBG Lactate Sodium 143 Potassium 4.4 Chloride 111 H Carbon Dioxide 14.0 L Anion Gap 18.0 H BUN 49 H Creatinine 2.6 H Est GFR (CKD-EPI 2020) 18.55 Glucose 341 H Calcium 7.7 L Magnesium Total Bilirubin 2.2 H AST 98 H ALT 132 H Alkaline Phosphatase 166 H Lactate Dehydrogenase C-Reactive Protein Total Protein 5.8 L Albumin 2.1 L Lipase Procalcitonin TSH Free T4 Urine Color Urine Clarity Urine pH Ur Specific [place] Urine Protein Urine Ketones Urine Blood Urine Nitrite Urine Bilirubin Urine Urobilinogen Ur Leukocyte Esterase Urine RBC Urine WBC Ur Epithelial Cells Urine Crystals Urine Bacteria Urine Casts Urine Mucus Ur Culture Indicated? Urine Glucose Add-On Test Request
[2022-10-13] MEDS: INSULIN REGULAR IN 0.9 % NACL 100 UNIT/100 ML BAG IV (07:52)
[2022-10-13] MEDS: Mirtazapine 15 MG TAB 30 MG PO (07:53)
[2022-10-13] MEDS: Ascorbic Acid 500 MG TAB PO ×2 (07:54→22:15)
[2022-10-13] MEDS: Sertraline 50 MG TAB PO (07:54)
[2022-10-13 08:54] LABS: Lab Add On Test DONE
[2022-10-13 09:30] LABS: Magnesium 1.8 mg/dL (1.8-2.4); PHOSPHORUS 4.2 mg/dL (2.6-4.7)
--- NOTE | 2022-10-13 09:31 | INITIAL_ITS ---
Date of service: 10/13/22 Time of Service: 09:31 Care Management Initial Assmt Initial Assessment REASON FOR HOSPITALIZATION:: septic shock PREVIOUS FUNCTIONAL STATUS/SOCIAL/FAMILY SUPPORTS:: Dalia lives in a single family home in [facility] with her daughter Hyun. She has 2 other daughters who live in [facility] and a son who lives in [place]. Dalia is from [facility] and only moved to [place] in March. 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 She owns and uses a cane, walker and wheelchair for ambulatory assistance depending on how she is feeling. Dalia does not receive any community services. CURRENT FUNCTIONAL STATUS:: Dalia was sitting up in bed visiting with her family when CM met with her. She appeared pale and fatigued. She informed CM that her dies in March of 2021 and that is when she made the decision to move. It took her about a year to sell her home and get her affairs in order. ADVANCE DIRECTIVES:: none on file Has patient been provided with info about the portal/API?: Yes Did the patient sign up for the portal?: No CODE STATUS:: Full Code INSURANCE COVERAGE / FINANCIAL ISSUES:: Medicare CURRENT HOME/COMMUNITY SERVICES/EQUIPMENT:: cane, walker, wheelchair PRIMARY CARE PHYSICIAN:: Kody Nolasco POTENTIAL DISCHARGE NEEDS:: follow up with community providers PATIENT/FAMILY EDUCATION NEEDS:: Review of discharge instructions, activity, limitations, follow up plan, discuss Ask Me Three. TRANSPORTATION:: via private vehicle with family PLAN:: Dalia is critically ill and is being monitored and treated in the ICU. Her discharge plan is unclear at this time and is dependent on the course of her illness. CM will follow and continue to assess for discharge concerns. [facility] All Active Problems (Updated 10/13/22 @ 10:55 by Marilee Garcia MD) Gram-negative bacteremia (Acute) Hypoalbuminemia (Acute) Hypocalcemia (Acute) Elevated transaminase level (Acute) Hyperglycemia (Acute) Normal anion gap metabolic acidosis (Acute) High anion gap metabolic acidosis (Acute) Metabolic acidosis (Acute) Acute renal failure superimposed on chronic kidney disease (Acute) Lactic acidosis (Acute) Anemia (Chronic) Leukocytosis (Acute) Thrombocytopenia (Chronic) Full code status (Acute) Discharge planning issues (Acute) DVT prophylaxis (Acute) Chronic kidney disease (Chronic) Insulin-requiring or dependent type II diabetes mellitus (Acute) Sepsis with acute liver failure and septic shock (Acute) Septic shock (Acute) Acute pyelonephritis (Acute) Steroid-induced adrenal suppression (Acute) GAMAL (acute kidney injury) (Acute) Acute dehydration (Acute) Social History Smoking/Tobacco Use Status: Never Smoking risk assessment performed?: Yes Alcohol Intake: current Drug use: Never Substance use type: does not use Do you feel safe at home: Yes Do you feel safe in your relationship?: Yes
[2022-10-13] MEDS: Insulin Glargine 300 UNITS/3 ML PEN 10 UNITS SC (10:36)
[2022-10-13] MEDS: Pramipexole 0.5 MG TAB 1 MG PO (10:38)
[2022-10-13] MEDS: Pregabalin 25 MG CAP PO (10:38)
--- NOTE | 2022-10-13 10:57 | W.PM.PROGNOT ---
Date of Service Date of service: 10/13/22 Time of Service: 10:57 Assessment and Plan Assessment and plan (1) Septic shock: Status: Acute Assessment and plan: Septic shock secondary to pyelonephritis. There is no evidence of obstructive uropathy. She does have evidence of renal stones and has had previous stones removed. She does not require acute cystoscopy and stenting at present time. However Dr. Lerma did indicate he has a low threshold for placing a stent given the gas present in the left renal pelvis. Sensitive for condition worsens he would proceed with placement of a stent. Patient currently on meropenem pending identification of the gram-negative bacteremia that she has. Dr. Lackey has discontinued IV fluids as she performed a POCUS exam and found her IVC to be dilated. Patient's blood pressure still been borderline and she has required continue norepinephrine. Patient still requires ICU management at present time. Critical care time spent interviewing and examining the patient, reviewing studies, discussing case with patient's nurse and consulting physicians was 30 minutes (2) Acute pyelonephritis: Status: Acute Assessment and plan: left sided emphysematous pyelonephritis, she also has stones in her left mid to lower pole of her kidney but no obstruction of her ureter on renal CT. Dr. Lerma's consultation the patient greatly appreciated. Present time patient's urine output has picked up since being resuscitated with IV fluids and norepinephrine. As long as she continues to to improve we will hold off emergent cystoscopy as there is no clear evidence of obstructive uropathy on her present renal CT. (3) Sepsis with acute liver failure and septic shock: Status: Acute Assessment and plan: she has acute hepatic insufficiency, i.e. shock liver, d/t her hypotension, evidenced by hyperbilirubinemia and transaminitis and low albumin. Transaminases are improving. INR and aPTT were normal. d-dimer was high but in setting of sepsis, I am not surprised. Clinically she has not shown signs of PE and she has no evidence for DVT, I will trend this. her GAMAL prohibits obtaining CTA. If she developes CP or acute dyspnea then I will check stat echo and venous US (4) GAMAL (acute kidney injury): Status: Acute Assessment and plan: likely ATN from sepsis and hypotension but in the setting of chronic renal disease (baseline BUN and creatinine are 34 and 1.7 from outpatient labs on 08/30/22). No comment was made as to the size of her kidneys, except that her rigt kidney was unremarkable. creatinine down to 2.6 and BUN 49 today w/ adequate urine output (5) Chronic kidney disease: Status: Chronic Assessment and plan: likely secondary to DM. see above regarding GAMAL workup/treatment (6) Acute dehydration: Status: Acute Assessment and plan: iv fluids stopped by Pulm/CCM attending (7) Thrombocytopenia: Status: Chronic Assessment and plan: platelets 86,000 on admission now 72,000; r/o DIC, fibrinogen levels are pending (8) Steroid-induced adrenal suppression: Status: Acute Assessment and plan: pharmacy has informed me that we are still in a shortage of iv hydrocortisone, so I have changed her to oral hydrocortisone. (9) Full code status: Status: Acute Assessment and plan: I confirmed w/ the patient regarding her wishes for life support including intubation, CPR and defibrillation. (10) DVT prophylaxis: Status: Acute Assessment and plan: heparin SC (11) Discharge planning issues: Status: Acute Assessment and plan: patient remains full code. Subjective Subjective Interval history since last seen: Patient is feeling somewhat better. She is more alert, appropriate, not feeling dizzy or lightheaded at rest but still lightheaded w/ getting up. She required norepinephrine drip last night and this was briefly weaned off this morning but later in the morning has had to be resumed. IV fluids were discontinued Exam Narrative Exam Narrative: Dalia Dumont up in bed talking with her daughter she is alert and oriented. HEENT is unremarkable other than she looks chronically ill. Neck is supple no JVD Lungs clear to auscultation Heart is regular rate rhythm No CVA tenderness to palpation Abdomen soft and nontender nondistended normal bowel sounds Extremities without peripheral cyanosis or edema Objective Last Vital Signs Temp 37.0 C 10/13/22 04:31 Pulse 66 10/13/22 09:01 Resp 18 10/13/22 09:30 BP 130/60 10/13/22 09:01 Pulse Ox 98 10/13/22 09:30 Laboratory Results - last 24 hr 10/12/22 10/12/22 10/12/22 12:15 12:15 12:15 WBC 8.46 RBC 4.35 Hgb 12.8 Hct 38.2 MCV 88 MCH 29.4 MCHC 33.5 RDW 14.6 Plt Count 86 L MPV 11.2 H Immature Gran % 0.0 Neutrophils % 82.0 Band Neutrophils % 12 Lymphocytes % 5.0 Monocytes % 0.0 Eosinophils % 0.0 Basophils % 1.0 Metamyelocytes % Nucleated RBC % 0.0 Absolute Neutrophils 7.95 H Absolute Lymphocytes 0.42 L Absolute Monocytes 0.00 L Absolute Eosinophils 0.00 Absolute Basophils 0.08 RBC Morphology Normal Anisocytosis PT INR APTT Fibrinogen D-Dimer VBG pH 7.33 VBG pCO2 37 L VBG pO2 20 VBG HCO3 19 L VBG Total CO2 18 L VBG O2 Saturation 32 VBG Base Excess -7 L VBG Lactate Sodium 136 Potassium 3.6 Chloride 102 Carbon Dioxide 19.7 L Anion Gap 14.3 H BUN 48 H Creatinine 3.0 H Est GFR (CKD-EPI 2020) 15.62 Glucose 393 H Calcium 8.6 Phosphorus Magnesium 1.4 L Total Bilirubin 2.0 H AST 195 H ALT 197 H Alkaline Phosphatase 201 H Lactate Dehydrogenase C-Reactive Protein Total Protein 7.0 Albumin 2.7 L Lipase 29 Procalcitonin TSH 0.26 L Free T4 1.28 Urine Color Urine Clarity Urine pH Ur Specific Pipestem Urine Protein Urine Ketones Urine Blood Urine Nitrite Urine Bilirubin Urine Urobilinogen Ur Leukocyte Esterase Urine RBC Urine WBC Ur Epithelial Cells Urine Crystals Urine Bacteria Urine Casts Urine Mucus Ur Culture Indicated? Urine Glucose Add-On Test Request 10/12/22 10/12/22 10/12/22 13:28 19:07 19:44 WBC RBC Hgb Hct MCV MCH MCHC RDW Plt Count MPV Immature Gran % Neutrophils % Band Neutrophils % Lymphocytes % Monocytes % Eosinophils % Basophils % Metamyelocytes % Nucleated RBC % Absolute Neutrophils Absolute Lymphocytes Absolute Monocytes Absolute Eosinophils Absolute Basophils RBC Morphology Anisocytosis PT INR APTT Fibrinogen Cancelled D-Dimer VBG pH VBG pCO2 VBG pO2 VBG HCO3 VBG Total CO2 VBG O2 Saturation VBG Base Excess VBG Lactate Sodium Potassium Chloride Carbon Dioxide Anion Gap BUN Creatinine Est GFR (CKD-EPI 2020) Glucose Calcium Phosphorus Magnesium Total Bilirubin AST ALT Alkaline Phosphatase Lactate Dehydrogenase C-Reactive Protein Total Protein Albumin Lipase Procalcitonin TSH Free T4 Urine Color Yellow Urine Clarity Cloudy Urine pH 5.0 Ur Specific Pipestem 1.020 Urine Protein 30 H Urine Ketones Negative Urine Blood Moderate H Urine Nitrite Negative Urine Bilirubin Negative Urine Urobilinogen 2.0 H Ur Leukocyte Esterase Moderate H Urine RBC 10-20 H Urine WBC 20-50 H Ur Epithelial Cells Few Urine Crystals Negative Urine Bacteria Many Urine Casts 3-5 Hyaline Urine Mucus Negative Ur Culture Indicated? Yes Urine Glucose Negative Add-On Test Request DONE 10/12/22 10/12/22 10/12/22 19:45 19:47 19:47 WBC RBC Hgb Hct MCV MCH MCHC RDW Plt Count MPV Immature Gran % Neutrophils % Band Neutrophils % Lymphocytes % Monocytes % Eosinophils % Basophils % Metamyelocytes % Nucleated RBC % Absolute Neutrophils Absolute Lymphocytes Absolute Monocytes Absolute Eosinophils Absolute Basophils RBC Morphology Anisocytosis PT 10.5 INR 1.0 APTT 22.3 Fibrinogen D-Dimer VBG pH VBG pCO2 VBG pO2 VBG HCO3 VBG Total CO2 VBG O2 Saturation VBG Base Excess VBG Lactate 4.4 H* Sodium Potassium Chloride Carbon Dioxide Anion Gap BUN Creatinine Est GFR (CKD-EPI 2020) Glucose Calcium Phosphorus Magnesium Total Bilirubin AST ALT Alkaline Phosphatase Lactate Dehydrogenase C-Reactive Protein Total Protein Albumin Lipase Procalcitonin TSH Free T4 Urine Color Urine Clarity Urine pH Ur Specific Pipestem Urine Protein Urine Ketones Urine Blood Urine Nitrite Urine Bilirubin Urine Urobilinogen Ur Leukocyte Esterase Urine RBC Urine WBC Ur Epithelial Cells Urine Crystals Urine Bacteria Urine Casts Urine Mucus Ur Culture Indicated? Urine Glucose Add-On Test Request DONE 10/12/22 10/12/22 10/12/22 19:47 19:47 19:47 WBC RBC Hgb Hct MCV MCH MCHC RDW Plt Count MPV Immature Gran % Neutrophils % Band Neutrophils % Lymphocytes % Monocytes % Eosinophils % Basophils % Metamyelocytes % Nucleated RBC % Absolute Neutrophils Absolute Lymphocytes Absolute Monocytes Absolute Eosinophils Absolute Basophils RBC Morphology Anisocytosis PT INR APTT Fibrinogen D-Dimer > 7500 H VBG pH VBG pCO2 VBG pO2 VBG HCO3 VBG Total CO2 VBG O2 Saturation VBG Base Excess VBG Lactate Sodium Potassium Chloride Carbon Dioxide Anion Gap BUN Creatinine Est GFR (CKD-EPI 2020) Glucose Calcium Phosphorus Magnesium Total Bilirubin AST ALT Alkaline Phosphatase Lactate Dehydrogenase C-Reactive Protein > 25.00 H Total Protein Albumin Lipase Procalcitonin 75.8 TSH Free T4 Urine Color Urine Clarity Urine pH Ur Specific Pipestem Urine Protein Urine Ketones Urine Blood Urine Nitrite Urine Bilirubin Urine Urobilinogen Ur Leukocyte Esterase Urine RBC Urine WBC Ur Epithelial Cells Urine Crystals Urine Bacteria Urine Casts Urine Mucus Ur Culture Indicated? Urine Glucose Add-On Test Request 10/12/22 10/12/22 10/13/22 19:47 22:40 05:25 WBC RBC Hgb Hct MCV MCH MCHC RDW Plt Count MPV Immature Gran % Neutrophils % Band Neutrophils % Lymphocytes % Monocytes % Eosinophils % Basophils % Metamyelocytes % Nucleated RBC % Absolute Neutrophils Absolute Lymphocytes Absolute Monocytes Absolute Eosinophils Absolute Basophils RBC Morphology Anisocytosis PT INR APTT Fibrinogen D-Dimer VBG pH VBG pCO2 VBG pO2 VBG HCO3 VBG Total CO2 VBG O2 Saturation VBG Base Excess VBG Lactate 3.2 H* 1.6 H Sodium Potassium Chloride Carbon Dioxide Anion Gap BUN Creatinine Est GFR (CKD-EPI 2020) Glucose Calcium Phosphorus Magnesium Total Bilirubin AST ALT Alkaline Phosphatase Lactate Dehydrogenase 353 H C-Reactive Protein Total Protein Albumin Lipase Procalcitonin TSH Free T4 Urine Color Urine Clarity Urine pH Ur Specific Pipestem Urine Protein Urine Ketones Urine Blood Urine Nitrite Urine Bilirubin Urine Urobilinogen Ur Leukocyte Esterase Urine RBC Urine WBC Ur Epithelial Cells Urine Crystals Urine Bacteria Urine Casts Urine Mucus Ur Culture Indicated? Urine Glucose Add-On Test Request 10/13/22 10/13/22 10/13/22 05:25 05:25 05:25 WBC 15.40 H RBC 3.63 L Hgb 10.7 L D Hct 32.1 L MCV 88 MCH 29.5 MCHC 33.3 RDW 15.2 H Plt Count 72 L MPV 12.2 H Immature Gran % See Differential Neutrophils % 69.0 Band Neutrophils % 24 Lymphocytes % 3.0 Monocytes % 2.0 Eosinophils % 0.0 Basophils % 0.0 Metamyelocytes % 2 Nucleated RBC % 0.0 Absolute Neutrophils 14.32 H Absolute Lymphocytes 0.46 L Absolute Monocytes 0.31 Absolute Eosinophils 0.00 Absolute Basophils 0.00 RBC Morphology See Below Anisocytosis 1+ PT INR APTT Fibrinogen D-Dimer VBG pH VBG pCO2 VBG pO2 VBG HCO3 VBG Total CO2 VBG O2 Saturation VBG Base Excess VBG Lactate Sodium 143 Potassium 4.4 Chloride 111 H Carbon Dioxide 14.0 L Anion Gap 18.0 H BUN 49 H Creatinine 2.6 H Est GFR (CKD-EPI 2020) 18.55 Glucose 341 H Calcium 7.7 L Phosphorus 4.2 Magnesium 1.8 Total Bilirubin 2.2 H AST 98 H ALT 132 H Alkaline Phosphatase 166 H Lactate Dehydrogenase C-Reactive Protein Total Protein 5.8 L Albumin 2.1 L Lipase Procalcitonin TSH Free T4 Urine Color Urine Clarity Urine pH Ur Specific Pipestem Urine Protein Urine Ketones Urine Blood Urine Nitrite Urine Bilirubin Urine Urobilinogen Ur Leukocyte Esterase Urine RBC Urine WBC Ur Epithelial Cells Urine Crystals Urine Bacteria Urine Casts Urine Mucus Ur Culture Indicated? Urine Glucose Add-On Test Request 10/13/22 05:25 WBC RBC Hgb Hct MCV MCH MCHC RDW Plt Count MPV Immature Gran % Neutrophils % Band Neutrophils % Lymphocytes % Monocytes % Eosinophils % Basophils % Metamyelocytes % Nucleated RBC % Absolute Neutrophils Absolute Lymphocytes Absolute Monocytes Absolute Eosinophils Absolute Basophils RBC Morphology Anisocytosis PT INR APTT Fibrinogen D-Dimer VBG pH VBG pCO2 VBG pO2 VBG HCO3 VBG Total CO2 VBG O2 Saturation VBG Base Excess VBG Lactate Sodium Potassium Chloride Carbon Dioxide Anion Gap BUN Creatinine Est GFR (CKD-EPI 2020) Glucose Calcium Phosphorus Magnesium Total Bilirubin AST ALT Alkaline Phosphatase Lactate Dehydrogenase C-Reactive Protein Total Protein Albumin Lipase Procalcitonin TSH Free T4 Urine Color Urine Clarity Urine pH Ur Specific Pipestem Urine Protein Urine Ketones Urine Blood Urine Nitrite Urine Bilirubin Urine Urobilinogen Ur Leukocyte Esterase Urine RBC Urine WBC Ur Epithelial Cells Urine Crystals Urine Bacteria Urine Casts Urine Mucus Ur Culture Indicated? Urine Glucose Add-On Test Request DONE Time Spent with Patient Time Spent with Patient: 25-34 minutes Time was spent: preparing to see the patient(eg.review tests), ordering medications,tests, procedures, referring, communicating with other health care tech, indepentently interpreting results, counseling the patient and care coordination
[2022-10-13] MEDS: Hydrocortisone 10 MG TAB 20 MG PO (14:03)
--- NOTE | 2022-10-13 16:04 | PT.INIE ---
PT Notes Visit Reasons: Pyelonephritis, Sepsis, GAMAL, Acute Transaminitis Inpatient Physical Therapy Evaluation Date: 10/13/22 Referring Doctor: Krystal Kendrick PT Orders: PT CONSULT: limited ability to ambulate Precautions: Patient Profile/Admitting Diagnosis: 76-year-old female with history of psoriatic arthritis, as well as a longstanding history of type 2 diabetes mellitus requiring insulin, and a history of chronic UTIs.? Patient presented to the emergency department 10/12/22 with altered mental status and hypotension and was brought in by EMS. Workup revealed septic shock secondary to left pyelonephritis w/ GAMAL, and hepatic insufficiency but no obstructive uropathy. PMHX: All Active Problems?(Updated 10/12/22 @ 19:45 by Timothy Ray MD) Thrombocytopenia (Chronic) Full code status (Acute) Discharge planning issues (Acute) DVT prophylaxis (Acute) Chronic kidney disease (Chronic) Insulin-requiring or dependent type II diabetes mellitus (Acute) Sepsis with acute liver failure and septic shock (Acute) Septic shock (Acute) Acute pyelonephritis (Acute) Steroid-induced adrenal suppression (Acute) GAMAL (acute kidney injury) (Acute) Acute dehydration (Acute) Social History/Home Situation: [] Current Functional Limitations: [] Equipment Owned/DME: [] Subjective: [] Objective: [] General Observation: [] Mental Status: [] Pain: [] Vital Signs: [] ROM: Right Upper Extremity: [] Left Upper Extremity: [] Right Lower Extremity: [] Left Lower Extremity: [] Strength: Right Upper Extremity: [] Left Upper Extremity: [] Right Lower Extremity: [] Left Lower Extremity: [] Sensation: [] Bed Mobility/Transfers: [] Gait: [] Balance: [] Static Sitting: [] Dynamic Sitting: [] Static Standing: [] Dynamic Standing: [] Special Tests: Mobility Limitations Standardized Measure [facility] AM-PAC 6 clicks Basic Mobility Inpatient Short Form: Raw Score: [] Standardized Score: [] CMS Score: [] Informed Consent/Education: Patient instructed in purpose of PT consult and plan of care. Assessment: Patient is a [] year old [] referred to physical therapy services with the diagnosis of []. Patient presents with clinical signs and symptoms consistent with [], as demonstrated by the following impairment level findings: []. Impairments are contributing to the following functional limitations: AMPAC score. Patient is assessed as a [] Low 29665 [] Moderate 37916 [] High 23123 complexity based on the following: History: [] Examination: [] Presentation: [] Decision Making: [] Goals: Goals X1 week 1. Supine-Sit [] 2. Sit-Supine [] 3. Sit-Stand [] 4. Stand-Sit [] 5. Bed-Chair [] 6. Chair-Bed [] 7. Gait [] 8. Stairs [] 9. Independent with home exercise program [] 10. Balance [] Plan of Care/Treatment Plan: 1-2x/day, 7 days/week x 1 week. Plan of care has been reviewed with the [employer] providing the service under Physical Therapy direction. Initiate Physical Therapy intervention for strengthening, bed mobility, transfers, gait, stairs, balance training, use of assistive device. DISCHARGE RECOMMENDATIONS: [] [] Home with no services [] [] Home with services [specify] [] Home with outpatient PT [] [] SNF for continued rehabilitation [] [] [facility] [] [] SNF versus LTC based on ability to participate and progress [] TREATMENT CODE/TIME: []
--- NOTE | 2022-10-13 16:11 | PT.INNT ---
PT Notes Visit Reasons: Pyelonephritis, Sepsis, GAMAL, Acute Transaminitis PT consult attempted this afternoon. Patient declines, stating she is too tired. Will evaluate in am.
[2022-10-13] MEDS: INSULIN REGULAR IN 0.9 % NACL 100 UNIT/100 ML BAG 14.5 UNIT IV (16:30)
[2022-10-13 17:47] LABS: Lactate 3.1 mmol/L (0.6-1.4)
[2022-10-13 18:00] LABS: Anion Gap 14.5 mmol/L (3-11); BUN 50 mg/dL (7-18); CO2 19.5 mmol/L (21.0-32.0); CREATININE 2.6 mg/dL (0.55-1.02); Calcium 8.1 mg/dL (8.5-10.1); Chloride 111 mmol/L (98-107); Estimated GFR 18.55 (mL/min/1.73m2); Glucose 137 mg/dL (74-106); Potassium 3.5 mmol/L (3.5-5.1); Sodium 145 mmol/L (136-145)
[2022-10-13] MEDS: Insulin Aspart 300 UNITS/3 ML PEN 10 UNITS SC (19:02)
[2022-10-13] MEDS: Insulin Glargine 300 UNITS/3 ML PEN 20 UNITS SC (19:03)
[2022-10-13 20:42] LABS: Fibrinogen 579 mg/dL (171-384)
[2022-10-13 21:13] LABS: Bilirubin Negative (Negative); Blood Moderate (Negative); Clarity Cloudy (Clear); Glucose Negative (Negative); Ketones Trace mg/dL (Negative); Leukocyte Esterase Large (Negative); Nitrite Negative (Negative); Specific Gravity 1.015 (1.005-1.025)
[2022-10-13 21:24] LABS: Bacteria Many HPF (Negative); C & S Indicated? Yes; Casts Negative LPF (Negative); Crystals Negative HPF (Negative); Epithelial Cells Rare HPF (Negative); Mucus Negative (Negative); WBC >50 HPF (0-5)
[2022-10-13] MEDS: Hydrocortisone 10 MG TAB PO (22:15)
[2022-10-13] MEDS: Normal Saline Flush 10 ML SYR IVP (23:58)
[2022-10-14] VITALS (53 sets, daily range): BP systolic 92–128; BP diastolic 35–80; PULSE 40–84; RESP 12–32; TEMP 36.5–37.5; O2SAT 94–97
[2022-10-14] MEDS: LORazepam 0.5 MG TAB PO ×2 (01:15→20:08)
[2022-10-14] MEDS: Normal Saline Flush 10 ML SYR IVP ×2 (03:57→08:55)
--- NOTE | 2022-10-14 05:04 | NUR.NOTE ---
Nursing Note: Patient is on Heparin TID for DVT prophylaxis. 0400 dose of Heparin held for Platelet count of (72)with am labs on 10/13/2022.
[2022-10-14] MEDS: Levothyroxine 112 MCG TAB PO (05:25)
[2022-10-14 06:04] LABS: Abs Immature Grans 0.83 10^3/uL (0.0-0.06); Absolute Basophil Count 0.03 10^3/uL (0.0-0.2); Absolute Eosinophil Count 0.06 10^3/uL (0.0-0.7); Absolute Lymphocyte Count 0.45 10^3/uL (1.2-3.4); Absolute Monocyte Count 0.22 10^3/uL (0.1-0.8); Absolute Neutrophil Count 6.56 10^3/uL (1.2-6.7); Basophils % 0.4; Eosinophils % 0.7; HCT 28.5 % (36.0-46.0); HGB 9.8 g/dL (11.2-15.7); Immature Grans % 10.2; Lymphocytes % 5.5; MCH 29.6 pg (27.0-33.0); MCHC 34.4 % (32.0-36.0); MCV 86 fL (80-95); MPV 13.2 fL (8.0-11.0); Monocytes % 2.7; Neutrophils % 80.5; RBC 3.31 10^6/uL (3.93-5.22); RDW 15.2 % (11.7-14.6); RDW-SD 48.6 fL; WBC 8.15 10^3/uL (4.4-10.8)
[2022-10-14 06:23] LABS: ALT 86 U/L (14-59); AST 50 U/L (15-37); Albumin 1.8 g/dL (3.4-5.0); Alkaline Phosphatase 132 U/L (46-116); Anion Gap 12.5 mmol/L (3-11); BUN 49 mg/dL (7-18); Bilirubin, Total 0.8 mg/dL (0.2-1.0); CO2 18.5 mmol/L (21.0-32.0); CREATININE 2.1 mg/dL (0.55-1.02); Chloride 111 mmol/L (98-107); Estimated GFR 23.97 (mL/min/1.73m2); Glucose 283 mg/dL (74-106); Potassium 3.8 mmol/L (3.5-5.1); Sodium 142 mmol/L (136-145); Total Protein 5.4 g/dL (6.4-8.2)
[2022-10-14 06:59] LABS: Diff Comment Agrees w/ Instrument; Platelet Count 55 10^3/uL (130-400); RBC Morphology Normal
[2022-10-14 07:57] LABS: Lactate 1.3 mmol/L (0.6-1.4)
[2022-10-14] MEDS: Insulin Glargine 300 UNITS/3 ML PEN 10 UNITS SC (08:12)
[2022-10-14] MEDS: Insulin Aspart 300 UNITS/3 ML PEN SC ×5 (08:13→22:40)
[2022-10-14] MEDS: Pramipexole 0.5 MG TAB 1 MG PO (08:55)
[2022-10-14] MEDS: Hydrocortisone 10 MG TAB 20 MG PO (08:55)
[2022-10-14] MEDS: Ascorbic Acid 500 MG TAB PO ×2 (08:56→20:08)
[2022-10-14] MEDS: Pregabalin 25 MG CAP PO (08:56)
[2022-10-14] MEDS: Sertraline 50 MG TAB PO (08:56)
[2022-10-14] MEDS: Mirtazapine 15 MG TAB 30 MG PO (08:56)
[2022-10-14] MEDS: Insulin NPH-Human 300 UNITS/3 ML PEN 10 UNIT SC ×2 (08:57→17:44)
--- NOTE | 2022-10-14 09:29 | W.PM.PROGNOT ---
Date of Service Date of service: 10/14/22 Time of Service: 09:29 Assessment and Plan Assessment and plan (1) Sepsis with acute liver failure and septic shock: Status: Acute Assessment and plan: Due to E. Coli pyelonephritis and GNR bacteremia (also suspected E. Coli). Got off of vasopressors and is improving on meropenem. Lactic acid normalized. LFTs are improving. Await repeat blood cultures. Urine C&S demonstrates resistance to levofloxacin/cipro. We may be able to switch to ceftriaxone once we have confirmation of the same pathogen in the blood. Ok to transfer out of the ICU (assuming there is no DKA). (2) E. coli pyelonephritis: Status: Acute Assessment and plan: As above There is evidence of nephrolithiasis on imaging, but none obstructive. Should she clinically worsen, urology feels that she might benefit from a ureteral stent. (3) Gram-negative bacteremia: Status: Acute Assessment and plan: As above (4) Toxic metabolic encephalopathy: Status: Acute Assessment and plan: IN setting of GNR bacteremia/septic shock/pyelonephritis. Improving. She is A&Ox3 on my exam. Continue monitoring mental status while treating acute infection. (5) Acute renal failure superimposed on chronic kidney disease: Status: Acute Assessment and plan: Improving. Continue treatment of infection. Encourage PO fluids. Monitor UOP. (6) Insulin-requiring or dependent type II diabetes mellitus: Status: Acute Assessment and plan: With hyperglycemia. Checking UA for ketones to ensure there is no evidence of DKA. Insulin gtt has been d/c'ed. Continue basal bolus insulin for now. (7) Acute dehydration: Status: Resolved Assessment and plan: Appears to be euvolemic. Encourage PO fluids. (8) Thrombocytopenia: Status: Chronic Assessment and plan: Plt count down to 55. SC heparin d/c'ed. No evidence of active bleeding. DDx: I am less concerned about DIC with preserved INR. This could be due to sepsis proper, antibiotics, or heparin. Monitor platelets off of heparin. No further workup at this time. (9) Steroid-induced adrenal suppression: Status: Acute Assessment and plan: Continue PO hydrocortisone. (10) Hypoalbuminemia: Status: Acute Assessment and plan: Encourage PO nutrition. (11) Anemia: Status: Chronic Assessment and plan: In setting of thrombocytopenia but no obvious active bleeding. Check anemia studies, including hematest. (12) Metabolic acidosis: Status: Acute Assessment and plan: Improving. In setting of GAMAL on CKD, lactic acidosis (now resolved), but also hyperglycemia. Was being treated with insulin gtt, now transitioned to basal bolus insulin. Await repeat UA result. (13) DVT prophylaxis: Status: Acute Assessment and plan: SCDS. Hold SC heparin in setting of worsening thrombocytopenia (14) Discharge planning issues: Status: Acute Assessment and plan: Full code Likely ok to transfer out of the ICU (as long as there are no ketones in the urine). Total Critical Care Time 45 minutes. Subjective Subjective Interval history since last seen: I feel 100% better. Ms Reyna denies dizziness, CP, SOB, n/v. She states that her shortness of breath is chronic and that she is at her baseline. BP is 111/44; Off of vasopressors since 1 am. Exam Narrative Exam Narrative: General: Pleasant elderly female who appears dyspneic after being turned in bed, on RA, A&Ox3, slow to provide answers, and some of them do not make sense HEENT: EOMI, MMM Heart: RRR, no m/r/g Lungs: CTAB Abdomen: soft, nondistended, nontender : has a patricia Extremities: no edema BLEs Objective Last Vital Signs Temp 37.5 C 10/14/22 04:00 Pulse 77 10/14/22 09:02 Resp 16 10/14/22 09:02 BP 114/57 L 10/14/22 09:02 Pulse Ox 95 10/14/22 04:13 Laboratory Results - last 24 hr 10/12/22 10/13/22 10/13/22 22:40 05:25 16:00 WBC RBC Hgb Hct MCV MCH MCHC RDW Plt Count MPV Immature Gran % Neutrophils % Lymphocytes % Monocytes % Eosinophils % Basophils % Nucleated RBC % Absolute Neutrophils Absolute Lymphocytes Absolute Monocytes Absolute Eosinophils Absolute Basophils RBC Morphology Fibrinogen 579 H VBG Lactate Sodium Cancelled Potassium Cancelled Chloride Cancelled Carbon Dioxide Cancelled Anion Gap Cancelled BUN Cancelled Creatinine Cancelled Est GFR (CKD-EPI 2020) Cancelled Glucose Cancelled Calcium Cancelled Phosphorus 4.2 Magnesium 1.8 Total Bilirubin AST ALT Alkaline Phosphatase C-Reactive Protein Total Protein Albumin Urine Color Urine Clarity Urine pH Ur Specific [place] Urine Protein Urine Ketones Urine Blood Urine Nitrite Urine Bilirubin Urine Urobilinogen Ur Leukocyte Esterase Urine RBC Urine WBC Ur Epithelial Cells Urine Crystals Urine Bacteria Urine Casts Urine Mucus Ur Culture Indicated? Urine Glucose 10/13/22 10/13/22 10/13/22 17:30 17:30 20:45 WBC RBC Hgb Hct MCV MCH MCHC RDW Plt Count MPV Immature Gran % Neutrophils % Lymphocytes % Monocytes % Eosinophils % Basophils % Nucleated RBC % Absolute Neutrophils Absolute Lymphocytes Absolute Monocytes Absolute Eosinophils Absolute Basophils RBC Morphology Fibrinogen VBG Lactate 3.1 H* Sodium 145 Potassium 3.5 Chloride 111 H Carbon Dioxide 19.5 L Anion Gap 14.5 H BUN 50 H Creatinine 2.6 H Est GFR (CKD-EPI 2020) 18.55 Glucose 137 H Calcium 8.1 L Phosphorus Magnesium Total Bilirubin AST ALT Alkaline Phosphatase C-Reactive Protein Total Protein Albumin Urine Color Yellow Urine Clarity Cloudy Urine pH 5.0 Ur Specific [place] 1.015 Urine Protein 30 H Urine Ketones Trace H Urine Blood Moderate H Urine Nitrite Negative Urine Bilirubin Negative Urine Urobilinogen 2.0 H Ur Leukocyte Esterase Large H Urine RBC 5-10 H Urine WBC >50 H Ur Epithelial Cells Rare Urine Crystals Negative Urine Bacteria Many Urine Casts Negative Urine Mucus Negative Ur Culture Indicated? Yes Urine Glucose Negative 10/14/22 10/14/22 10/14/22 05:30 05:30 07:50 WBC 8.15 RBC 3.31 L Hgb 9.8 L Hct 28.5 L MCV 86 MCH 29.6 MCHC 34.4 RDW 15.2 H Plt Count 55 L MPV 13.2 H Immature Gran % 10.2 Neutrophils % 80.5 Lymphocytes % 5.5 Monocytes % 2.7 Eosinophils % 0.7 Basophils % 0.4 Nucleated RBC % 0.0 Absolute Neutrophils 6.56 Absolute Lymphocytes 0.45 L Absolute Monocytes 0.22 Absolute Eosinophils 0.06 Absolute Basophils 0.03 RBC Morphology Normal Fibrinogen VBG Lactate 1.3 Sodium 142 Potassium 3.8 Chloride 111 H Carbon Dioxide 18.5 L Anion Gap 12.5 H BUN 49 H Creatinine 2.1 H Est GFR (CKD-EPI 2020) 23.97 Glucose 283 H Calcium 8.0 L Phosphorus Magnesium Total Bilirubin 0.8 AST 50 H ALT 86 H Alkaline Phosphatase 132 H C-Reactive Protein 23.60 H Total Protein 5.4 L Albumin 1.8 L Urine Color Urine Clarity Urine pH Ur Specific [place] Urine Protein Urine Ketones Urine Blood Urine Nitrite Urine Bilirubin Urine Urobilinogen Ur Leukocyte Esterase Urine RBC Urine WBC Ur Epithelial Cells Urine Crystals Urine Bacteria Urine Casts Urine Mucus Ur Culture Indicated? Urine Glucose Multi-Disciplinary Checklist Lines/Tubes CENTRAL LINE: no ARTERIAL LINE: no PATRICIA: yes, Patricia Day#: 1 ENDOTRACHEAL TUBE: no ICU Maintenance GLUCOSE 140-180mg/dL: no, Reason/Intervention: adjusting insulins NUTRITION AT GOAL: yes PRESSURE ULCER: no RESTRAINTS: no ANTIBIOTICS(if yes, consider Stewardship): Yes Social Issues FAMILY UPDATED: no, Reason/Intervention: Patient has been updating the family PT/OT: yes GOALS/DISPOSITION/PHYSICAL BIOCHEMIST: yes CODE STATUS: Full Prophylaxis DVT PROPHYLAXIS: yes GI PROPHYLAXIS: yes, Indication: on steroids Time Spent with Patient Time Spent with Patient: 35-49 minutes Time was spent: preparing to see the patient(eg.review tests), obtaining and/or reviewing separately otained hiistory, ordering medications,tests, procedures, referring, communicating with other health resident care assistant, indepentently interpreting results, counseling the patient and care coordination
[2022-10-14] MEDS: Pantoprazole 40 MG TABCR PO (11:18)
--- NOTE | 2022-10-14 12:26 | PT.INIE ---
PT Notes Visit Reasons: Pyelonephritis, Sepsis, GAMAL, Acute Transaminitis Physical Therapy Inpatient Initial Evaluation Date: 10/14/2022 Referring Doctor: Krystal Kendrick NP PT Orders: PT CONSULT:Eval/Treat Precautions: Fall. Standard. Activity as tolerated. Patient Profile/Admitting Diagnosis: Patient is a 76-year-old female with admitted for management of E. coli pyelonephritis, sepsis with acute liver failure, steroid-induced adrenal suppression suppression, gram-negative bacteremia, toxic metabolic encephalopathy, hypoalbuminemia, anemia, type II DM, and metabolic acidosis. PMHX: All Active Problems?(Updated 10/12/22 @ 19:45 by Timothy Ray MD) Thrombocytopenia (Chronic) Full code status (Acute) Discharge planning issues (Acute) DVT prophylaxis (Acute) Chronic kidney disease (Chronic) Insulin-requiring or dependent type II diabetes mellitus (Acute) Sepsis with acute liver failure and septic shock (Acute) Septic shock (Acute) Acute pyelonephritis (Acute) Steroid-induced adrenal suppression (Acute) GAMAL (acute kidney injury) (Acute) Acute dehydration (Acute) Social History/Home Situation: Lives with daughter Hyun in a private home with 3 steps to enter with rails on both sides. Independent with all indoor and outdoor ambulation using single-point cane. Recently moved from her own residence in [place]. Equipment Owned/DME: [facility] Subjective: Agreeable to getting out of bed. Needed to be transferred to commode to assit with bowel movement. Headache, chest pain, and lightheadedness throughout session. Reports that she has had issue with her R knee buckling in the past. Objective: General Observation: Resting in bed. Adeola Mayes and Sugey's SO present in room part of session. Telemetry in place. Catheter in place IV access through left UE. Mental Status: Alert and oriented as to person, place, time, and purpose. Able to pay attention, focus, and respond appropriately. Pain: Denies Vital Signs: Closely monitored via telemetry ROM: Right Upper Extremity: Shoulder Flexion WFL. Shoulder abduction WFL. Elbow flexion WFL. Wrist flexion WFL. Functional opening and closing of hand WFL. Left Upper Extremity: Shoulder Flexion WFL. Shoulder abduction WFL. Elbow flexion WFL. Wrist flexion WFL. Functional opening and closing of hand WFL. Right Lower Extremity: Hip flexion WFL. Hip abduction WFL. Knee flexion about 20 degrees to 100 degrees. Extension about -20 degrees ankle dorsiflexion WFL. Ankle plantarflexion WFL. Left Lower Extremity: Hip flexion WFL. Hip abduction WFL. Knee flexion WFL. Ankle dorsiflexion WFL. Ankle plantarflexion WFL. Strength: Right Upper Extremity: Shoulder flexors 4-/5. Shoulder abductors 4-/5. Elbow flexors 4-/5. Elbow extensors 4-/5. Director [employer] strong. Left Upper Extremity: Shoulder flexors 4-/5. Shoulder abductors 4-/5. Elbow flexors 4-/5. Elbow extensors 4-/5. Director Investor Relations strong. Right Lower Extremity: Hip flexors 3+/5. Hip abductors 4-/5. Knee flexors 3-/5. Knee extensors 3-/5. Ankle dorsiflexors 4-/5. Ankle plantarflexors 4-/5. Left Lower Extremity: Hip flexors 4-/5. Hip abductors 4-/5. Knee flexors 4-/5. Knee extensors 4-/5. Ankle dorsiflexors 4-/5. Ankle plantarflexors 4-/5. Bed Mobility/Transfers: Supine to sit minimal assist Sit to stand contact-guard assist, cues provided for hand placement Stand to sit contact-guard assist, cues provided for hand placement Bed to bedside commode minimal assist, cues provided for hand placement Bedside commode to chair minimal assist, cues provided for hand placement Gait: Instructed patient with level surface ambulation of 10 feet + 5 feet requiring minimal assist. Mild buckling in R knee x 3 but no LOB. Cues provided to ensure that walker is placed at right distance to ensure that base of support is maximized. Balance: Static Sitting: Normal Dynamic Sitting: Normal Static Standing: Fair Dynamic Standing: Fair Special Tests: Mobility Limitations Standardized Measure [facility] AM-PAC 6 clicks Basic Mobility Inpatient Short Form: Raw Score: 18 CMS Score: 47% deficit Informed Consent/Education: Patient was instructed in purpose of PT consult and plan of care. Agreeable to proceed with established PT POC to achieve personal goals. ASSESSMENT: Mild R knee buckling incrasing fall risk at this time, Requires FWW for optimal stability with gait performance. Will look into assessing R knee hinged brace in the next session for increased distance coverage. Denies pain in R knee. Will consult with hospitalist prescription for a trial of knee brace to address chronic knee buckling. Patient presents with clinical signs and symptoms consistent with current/admitting diagnoses that have resulted to mobility limitations, gait instability, generalized weakness, and overall ADL decline as demonstrated by the following impairment level findings: 1. Decreased strength to B UE/LE major muscle groups 2. Impaired sitting/standing balance 3. Impaired activity tolerance 4. Limitation of joint range of motion in R knee 5. R knee mild buckling Impairments are contributing to the following functional limitations: 1. Decline in bed mobility skills 2. Decline in transfer skills 3. Difficulty with ambulation without assistive device and physical assistance 4. Increased completion time for mobility ADL performance 5. Increased risk for falls 6. Difficulty with managing steps alone safely Patient is assessed as a 02832 moderate complexity based on the following: History: 76-year-old female with past medical history as indicated above Examination: Demonstrable impairment in strength, balance, and mobility level with underlying impairments and functional limitations as exhibited above as well as deficit score of 47% utilizing the [facility] Mobility Inpatient Short Form Presentation: Evolving Decision Makin moderate complexity Goals: Goals X1 week 1. Supine-Sit independent 2. Sit-Supine independent 3. Sit-Stand independent 4. Stand-Sit independent with FWW 5. Bed-Chair independent with FWW 6. Chair-Bed independent with FWW 7. Independent gait on level surface with use of FWW for at least 300 feet without report of pain nor dyspnea 8. Independent stair negotiation while holding onto B rails for at least 3 steps without report of pain nor dyspnea 9. Independent with home exercise program 10. Good static and dynamic standing balance/tolerance Plan of Care/Treatment Plan: -1-2x/day, 7 days/week x 1 week. -Plan of care has been reviewed with the MEDICATION TECHNICIAN providing the service under Physical Therapy direction. - Trial hinged knee brace for tomorrow's walk. -Initiate Physical Therapy intervention for pain management as needed, strengthening, bed mobility, transfers, gait, stairs, balance training, and use of assistive device. DISCHARGE RECOMMENDATIONS: [] Home with no services [] [] Home with services [specify] [] Home with outpatient PT [] [] SNF for continued rehabilitation [] [] [facility] [] [] SNF versus LTC based on ability to participate and progress [] [X] HH PT vs SNF based on ability to progress towards goals. TREATMENT CODE/TIME: 43025 x 20 minutes, 71069 x 13 minutes beginning at 11:42 AM. Thank you for the opportunity to participate in the care of this patient. Jessica Johnson PT, DPT, CLT [facility] [place], [place]
[2022-10-14] MEDS: Hydrocortisone 10 MG TAB PO ×2 (13:16→20:07)
--- NOTE | 2022-10-14 15:31 | NUR.NOTE ---
Nursing Note: This nurse in patient's room at approximately 1445. Patient asked why there were bugs crawling in the floor.....some of them are jumping. This nurse explained the floor tiles have spots/flecks on them, this nurse reassured patient there are no bugs on the floor.
[2022-10-14] MEDS: Pregabalin 25 MG CAP 50 MG PO (20:06)
[2022-10-14] MEDS: Acetaminophen 325 MG TAB PO (20:07)
[2022-10-14] MEDS: Insulin Glargine 300 UNITS/3 ML PEN 20 UNITS SC (22:40)
[2022-10-15] VITALS (10 sets, daily range): BP systolic 106–146; BP diastolic 46–113; PULSE 38–112; RESP 16; TEMP 36–36.4; O2SAT 96–100
[2022-10-15] MEDS: Acetaminophen 325 MG TAB PO (01:33)
[2022-10-15] MEDS: Preparation H 28 GM TUBE PR (01:36)
[2022-10-15] MEDS: QUEtiapine 25 MG TAB PO (04:59)
[2022-10-15] MEDS: Haloperidol 5 MG/ML VIAL IM/IV (05:51)
--- NOTE | 2022-10-15 06:33 | NUR.NOTE ---
Nursing Note: Patient incontinent of stool. Cleaned up and after patient became uncooperative/combative/and continually trying to climb out of bed. Dr Hernández was notified and orders were received however patient was uncooperative and refused to take medications. At 0515 patient received Haloperidol 0.5mg IVP over 1 minute for agitation with appropriate effect. 1:1 observation was stopped at 0530.
[2022-10-15 08:17] LABS: Abs Immature Grans 0.05 10^3/uL (0.0-0.06); Absolute Basophil Count 0.02 10^3/uL (0.0-0.2); Absolute Eosinophil Count 0.08 10^3/uL (0.0-0.7); Absolute Lymphocyte Count 0.67 10^3/uL (1.2-3.4); Absolute Monocyte Count 0.29 10^3/uL (0.1-0.8); Absolute Neutrophil Count 6.98 10^3/uL (1.2-6.7); Basophils % 0.2; HCT 29.2 % (36.0-46.0); Immature Grans % 0.6; Lymphocytes % 8.3; MCH 29.2 pg (27.0-33.0); MCHC 34.2 % (32.0-36.0); MCV 85 fL (80-95); MPV 12.4 fL (8.0-11.0); Monocytes % 3.6; Neutrophils % 86.3; RBC 3.42 10^6/uL (3.93-5.22); RDW 14.8 % (11.7-14.6); WBC 8.09 10^3/uL (4.4-10.8)
[2022-10-15 08:29] LABS: Anion Gap 10.3 mmol/L (3-11); BUN 44 mg/dL (7-18); C-Reactive Protein 12.51 mg/dL (0.0-0.3); CO2 21.7 mmol/L (21.0-32.0); CREATININE 1.7 mg/dL (0.55-1.02); Calcium 8.4 mg/dL (8.5-10.1); Chloride 115 mmol/L (98-107); Estimated GFR 30.89 (mL/min/1.73m2); Glucose 204 mg/dL (74-106); Magnesium 1.8 mg/dL (1.8-2.4); Potassium 3.6 mmol/L (3.5-5.1); Sodium 147 mmol/L (136-145)
[2022-10-15 08:34] LABS: Diff Comment Diff Reviewed; Platelet Count 66 10^3/uL (130-400); RBC Morphology Normal
[2022-10-15 08:47] LABS: D-Dimer 3328 ng/mlFEU (<500)
[2022-10-15 08:56] LABS: Procalcitonin 34.9 ng/mL
[2022-10-15] MEDS: Normal Saline Flush 10 ML SYR IVP ×2 (09:08)
--- NOTE | 2022-10-15 10:49 | PGE_ITS ---
Date of Service Date of service: 10/15/22 Time of Service: 10:50 Assessment and Plan Assessment and plan (1) Sepsis with acute liver failure and septic shock: Status: Acute Assessment and plan: Due to E. Coli pyelonephritis and E. Coli bacteremia (also suspected E. Coli). No longer requiring pressors; improving on meropenem. Lactic acid normalized. LFTs are improving. Repeat blood cx show NGTD. Will switch abx to ceftriaxone. (2) E. coli pyelonephritis: Status: Acute Assessment and plan: As above There is evidence of nephrolithiasis on imaging, but none obstructive. Should she clinically worsen, urology feels that she might benefit from a ureteral stent. (3) Gram-negative bacteremia: Status: Acute Assessment and plan: As above (4) Toxic metabolic encephalopathy: Status: Acute Assessment and plan: IN setting of GNR bacteremia/septic shock/pyelonephritis. Additionally, there is underlying dementia, and the patient has a component of delirium, which could be related to being outside of her usual environment. I did note her medications from home that are usually given at bedtime had been given in the morning the last few days, which could be contributing to a sleep disturbance, also resulting in delirium. Finally, the patient was on meropem, which can cause delirium. The patient responded well to haldol and is now asleep. We should continue to monitor her behaviors and possibly schedule seroquel in the evening to help with sleep. Her mirtazapine and mirapex are now being given at night as well. (5) Acute renal failure superimposed on chronic kidney disease: Status: Acute Assessment and plan: Improving. Continue treatment of infection. Encourage PO fluids. Monitor UOP. (6) Insulin-requiring or dependent type II diabetes mellitus: Status: Acute Assessment and plan: Continue basal bolus insulin (7) Acute dehydration: Status: Resolved Assessment and plan: Appears to be euvolemic. Encourage PO fluids. (8) Thrombocytopenia: Status: Chronic Assessment and plan: Plt count is improving - 66 this am. SC heparin d/c'ed. No evidence of active bleeding. DDx: probably not DIC given a normal INR, improvement in D-dimer. This could be due to sepsis proper, antibiotics, or heparin. Monitor platelets off of heparin. No further workup at this time. (9) Steroid-induced adrenal suppression: Status: Acute Assessment and plan: Continue PO hydrocortisone. (10) Hypoalbuminemia: Status: Acute Assessment and plan: Encourage PO nutrition. (11) Anemia: Status: Chronic Assessment and plan: In setting of thrombocytopenia but no obvious active bleeding. Check anemia studies, including hematest. (12) Metabolic acidosis: Status: Resolved Assessment and plan: In setting of GAMAL on CKD, lactic acidosis (now resolved), but also hyperglycemia/DKA. Now resolved. (13) DVT prophylaxis: Status: Acute Assessment and plan: SCDS. Hold SC heparin in setting of worsening thrombocytopenia (14) Discharge planning issues: Status: Acute Assessment and plan: Full code Continues to require hospitalization. Subjective Subjective Interval history since last seen: Ms Reyna was restless/agitated to the point of requiring IV haldol this morning. Since then, she has been asleep. According to nursing, she had not slept well for the two nights prior. She is arousable, but not waking up enough on my exam to answer questions. Nursing noted that the patient had been bradycardic to 40s and high 30s while asleep, but her HR does improve when she is awake. Exam Narrative Exam Narrative: General: elderly female is comfortably asleep in bed, arousable, but not enough to answer questions or to follow commands HEENT: eyes closed, MMM Heart: RRR, no m/r/g Lungs: CTAB Abdomen: soft, nondistended : has a patricia Extremities: no edema BLEs, wearing SCDs Objective Last Vital Signs Temp 36.4 C L 10/15/22 09:42 Pulse 46 L 10/15/22 09:42 Resp 16 10/15/22 09:42 BP 106/46 L 10/15/22 09:42 Pulse Ox 98 10/15/22 09:42 Laboratory Results - last 24 hr 10/15/22 10/15/22 10/15/22 05:35 05:35 05:35 WBC Cancelled RBC Cancelled Hgb Cancelled Hct Cancelled MCV Cancelled MCH Cancelled MCHC Cancelled RDW Cancelled Plt Count Cancelled MPV Cancelled Immature Gran % Cancelled Neutrophils % Cancelled Band Neutrophils % Cancelled Lymphocytes % Cancelled Atypical Lymphs % Cancelled Monocytes % Cancelled Eosinophils % Cancelled Basophils % Cancelled Metamyelocytes % Cancelled Myelocytes % Cancelled Promyelocytes % Cancelled Other Cells % Cancelled Nucleated RBC % Cancelled Absolute Neutrophils Cancelled Absolute Lymphocytes Cancelled Absolute Monocytes Cancelled Absolute Eosinophils Cancelled Absolute Basophils Cancelled RBC Morphology Cancelled Polychromasia Cancelled Hypochromasia Cancelled Poikilocytosis Cancelled Basophilic Stippling Cancelled Anisocytosis Cancelled Microcytosis Cancelled Macrocytosis Cancelled Spherocytes Cancelled Tear Drop Cells Cancelled Ovalocytes Cancelled Stomatocytes Cancelled [place] Bodies Cancelled Gely Cells/Echinocytes Cancelled Acanthocytes (Spur) Cancelled Schistocytes Cancelled D-Dimer Sodium Cancelled Potassium Cancelled Chloride Cancelled Carbon Dioxide Cancelled Anion Gap Cancelled BUN Cancelled Creatinine Cancelled Est GFR (CKD-EPI 2020) Cancelled Glucose Cancelled Calcium Cancelled Magnesium Cancelled C-Reactive Protein Cancelled Procalcitonin Cancelled 10/15/22 10/15/22 10/15/22 05:35 08:10 08:10 WBC RBC Hgb Hct MCV MCH MCHC RDW Plt Count MPV Immature Gran % Neutrophils % Band Neutrophils % Lymphocytes % Atypical Lymphs % Monocytes % Eosinophils % Basophils % Metamyelocytes % Myelocytes % Promyelocytes % Other Cells % Nucleated RBC % Absolute Neutrophils Absolute Lymphocytes Absolute Monocytes Absolute Eosinophils Absolute Basophils RBC Morphology Polychromasia Hypochromasia Poikilocytosis Basophilic Stippling Anisocytosis Microcytosis Macrocytosis Spherocytes Tear Drop Cells Ovalocytes Stomatocytes [place] Bodies Gely Cells/Echinocytes Acanthocytes (Spur) Schistocytes D-Dimer Cancelled Sodium 147 H Potassium 3.6 Chloride 115 H Carbon Dioxide 21.7 Anion Gap 10.3 BUN 44 H Creatinine 1.7 H Est GFR (CKD-EPI 2020) 30.89 Glucose 204 H Calcium 8.4 L Magnesium 1.8 C-Reactive Protein 12.51 H Procalcitonin 34.9 10/15/22 10/15/22 08:10 08:10 WBC 8.09 RBC 3.42 L Hgb 10.0 L Hct 29.2 L MCV 85 MCH 29.2 MCHC 34.2 RDW 14.8 H Plt Count 66 L MPV 12.4 H Immature Gran % 0.6 Neutrophils % 86.3 Band Neutrophils % Lymphocytes % 8.3 Atypical Lymphs % Monocytes % 3.6 Eosinophils % 1.0 Basophils % 0.2 Metamyelocytes % Myelocytes % Promyelocytes % Other Cells % Nucleated RBC % 0.0 Absolute Neutrophils 6.98 H Absolute Lymphocytes 0.67 L Absolute Monocytes 0.29 Absolute Eosinophils 0.08 Absolute Basophils 0.02 RBC Morphology Normal Polychromasia Hypochromasia Poikilocytosis Basophilic Stippling Anisocytosis Microcytosis Macrocytosis Spherocytes Tear Drop Cells Ovalocytes Stomatocytes [place] Bodies [place] Cells/Echinocytes Acanthocytes (Spur) Schistocytes D-Dimer 3328 H Sodium Potassium Chloride Carbon Dioxide Anion Gap BUN Creatinine Est GFR (CKD-EPI 2020) Glucose Calcium Magnesium C-Reactive Protein Procalcitonin Time Spent with Patient Time Spent with Patient: 25-34 minutes Time was spent: preparing to see the patient(eg.review tests), obtaining and/or reviewing separately otained hiistory, ordering medications,tests, procedures, referring, communicating with other health care navigator, indepentently interpreting results, counseling the patient and care coordination
[2022-10-15] MEDS: Insulin NPH-Human 300 UNITS/3 ML PEN 10 UNIT SC ×2 (11:24→18:02)
--- NOTE | 2022-10-15 11:53 | NUR.NOTE ---
Nursing Note: Meropenem stopped during administration. Per MD via [employer], Meropenam can exacerbate delirium. Orders received to stop infusion. Also, blood and urine results indicate antibiotic change to ceftriaxone. Orders received, awaiting delivery by pharmacy.
[2022-10-15] MEDS: Pregabalin 25 MG CAP 50 MG PO ×2 (12:20→21:28)
[2022-10-15] MEDS: Sertraline 50 MG TAB PO (12:20)
[2022-10-15] MEDS: Pantoprazole 40 MG TABCR PO (12:20)
[2022-10-15] MEDS: Hydrocortisone 10 MG TAB 20 MG PO (12:20)
[2022-10-15] MEDS: Ascorbic Acid 500 MG TAB PO (12:21)
[2022-10-15] MEDS: Insulin Aspart 300 UNITS/3 ML PEN SC ×5 (12:25→21:24)
[2022-10-15] MEDS: LORazepam 0.5 MG TAB PO (12:33)
[2022-10-15] MEDS: cefTRIAXone 2 GM/50 ML BAG IVPB (13:02)
[2022-10-15] MEDS: Hydrocortisone 10 MG TAB PO ×2 (15:33→21:29)
[2022-10-15] MEDS: Pramipexole 0.5 MG TAB 1 MG PO (21:27)
[2022-10-15] MEDS: Mirtazapine 15 MG TAB 30 MG PO (21:29)
[2022-10-15] MEDS: Insulin Glargine 300 UNITS/3 ML PEN 20 UNITS SC (21:30)
[2022-10-15] MEDS: QUEtiapine 25 MG TAB 12.5 MG PO (21:39)
--- NOTE | 2022-10-15 21:47 | PT.INTREAT ---
Date of service: 10/15/22 Time of Service: 09:46 PT Notes Visit Reasons: Pyelonephritis, Sepsis, GAMAL, Acute Transaminitis Inpatient Physical Therapy Treatment Note [facility] Date: 10/15/22 PRECAUTIONS: Fall, standard, activity as tolerated SUBJECTIVE: Patient supine in bed, agreeable to therapy OBJECTIVE: PAIN: THEREX: Supine ankle pumps, heel slides, hip ab/adduction, seated long arc quads, marching, heel raises, toe raises, hamstring curls against therapist manual resistance. ASSESSMENT: Patient tolerates therapy well PLAN: Continue strengthening per plan of care TREATMENT CODE/TIME: 54218 Ther Ex 25 minutes beginning at 9:46
[2022-10-16] VITALS (8 sets, daily range): BP systolic 111–145; BP diastolic 47–78; PULSE 52–82; RESP 16; TEMP 35.6–36.1; O2SAT 93–99
[2022-10-16 05:51] LABS: Abs Immature Grans 0.05 10^3/uL (0.0-0.06); Absolute Basophil Count 0.04 10^3/uL (0.0-0.2); Absolute Eosinophil Count 0.17 10^3/uL (0.0-0.7); Absolute Lymphocyte Count 0.75 10^3/uL (1.2-3.4); Absolute Neutrophil Count 4.78 10^3/uL (1.2-6.7); Basophils % 0.7; Eosinophils % 2.8; HCT 31.2 % (36.0-46.0); HGB 10.6 g/dL (11.2-15.7); Immature Grans % 0.8; Lymphocytes % 12.3; MCH 29.4 pg (27.0-33.0); MCV 86 fL (80-95); MPV 12.9 fL (8.0-11.0); Monocytes % 4.9; Neutrophils % 78.5; RBC 3.61 10^6/uL (3.93-5.22); RDW 15.4 % (11.7-14.6); RDW-SD 48.9 fL; WBC 6.09 10^3/uL (4.4-10.8)
[2022-10-16 06:08] LABS: Iron 47 ug/dL (50-170); Total Iron Binding Capacity 179 ug/dL (250-450); Transferrin Sat 26 % (15-50)
[2022-10-16 06:25] LABS: Ferritin 681 ng/mL (8-252); Folate 9.4 ng/mL (8.6-20.0)
[2022-10-16 06:27] LABS: Diff Comment Diff Reviewed; Platelet Count 95 10^3/uL (130-400); RBC Morphology Normal
[2022-10-16 06:32] LABS: Anion Gap 7.5 mmol/L (3-11); BUN 38 mg/dL (7-18); CO2 22.5 mmol/L (21.0-32.0); CREATININE 1.5 mg/dL (0.55-1.02); Calcium 8.3 mg/dL (8.5-10.1); Chloride 111 mmol/L (98-107); Estimated GFR 35.89 (mL/min/1.73m2); Glucose 257 mg/dL (74-106); Magnesium 1.7 mg/dL (1.8-2.4); Potassium 3.7 mmol/L (3.5-5.1); Sodium 141 mmol/L (136-145); Vitamin B12 1118 pg/mL (193-986)
[2022-10-16 06:33] LABS: C-Reactive Protein 7.37 mg/dL (0.0-0.3)
[2022-10-16] MEDS: Levothyroxine 112 MCG TAB PO (07:10)
--- NOTE | 2022-10-16 09:26 | PGE_ITS ---
Date of Service Date of service: 10/16/22 Time of Service: 09:26 Assessment and Plan Assessment and plan (1) Sepsis with acute liver failure and septic shock: Status: Acute Assessment and plan: Due to E. Coli pyelonephritis and E. Coli bacteremia, present on admission. Meropenem may have been contributing to AMS. Changed to ceftriaxone and is continuing to improve clinicalyl. Lactic acid normalized. LFTs are improving. Continue ceftriaxone with a plan for 2 weeks of abx. D/c patricia catheter with plans for a voiding trial. (2) E. coli pyelonephritis: Status: Acute Assessment and plan: As above There is evidence of nephrolithiasis on imaging, but none obstructive. Should she clinically worsen, urology feels that she might benefit from a ureteral stent. (3) Gram-negative bacteremia: Status: Acute Assessment and plan: As above (4) Toxic metabolic encephalopathy: Status: Resolved Assessment and plan: IN setting of GNR bacteremia/septic shock/pyelonephritis. Additionally, there is underlying dementia, and the patient has a component of [employer], which could be related to being outside of her usual environment. Her medications have now been properly timed, meropenem changed to ceftriaxone, and she has been started on a very low dose of seroquel at night. Continue to monitor mental status, but so far today she appears to be doing a lot better. We need to do our best to maintain a regular sleeping schedule. I have ordered melatonin for tonight as well. Trend procalcitonin, CRP. (Procalcitonin can also be elevated in setting of adrenal insufficiency) (5) Acute renal failure superimposed on chronic kidney disease: Status: Acute Assessment and plan: Improving. Continue treatment of infection. Encourage PO fluids. Monitor UOP. (6) Insulin-requiring or dependent type II diabetes mellitus: Status: Acute Assessment and plan: Continue basal bolus insulin; uptitrate lantus. (7) Acute dehydration: Status: Resolved Assessment and plan: Appears to be euvolemic. Encourage PO fluids. (8) Thrombocytopenia: Status: Chronic Assessment and plan: Plt count is improving - 95 this am. Consider resumption of SC heparin once plts are >100. No evidence of active bleeding. DDx: probably not DIC given a normal INR, improvement in D-dimer. This could be due to sepsis proper, antibiotics, or heparin. Monitor platelets off of heparin. No further workup at this time. (9) Steroid-induced adrenal suppression: Status: Acute Assessment and plan: Continue PO hydrocortisone. (10) Hypoalbuminemia: Status: Acute Assessment and plan: Encourage PO nutrition. (11) Anemia: Status: Chronic Assessment and plan: In setting of thrombocytopenia but no obvious active bleeding. Anemia studies wnl. Hematest pending. (12) Metabolic acidosis: Status: Resolved Assessment and plan: In setting of GAMAL on CKD, lactic acidosis (now resolved), but also hyperglycemia/DKA. Now resolved. (13) DVT prophylaxis: Status: Acute Assessment and plan: SCDS. Holding chemical DVT ppx in setting of thrombocytopenia (14) Discharge planning issues: Status: Acute Assessment and plan: Full code Continues to require hospitalization. Subjective Subjective Interval history since last seen: Ms Reyna feels a lot better today, she states. She slept last night (nursing reports, however, that she had several BMs last night). She denies dizziness, headache, CP, SOB, n/v, pain anywhere. Exam Narrative Exam Narrative: General: elderly female who is A&Ox3 (even thought he date is incorrect on the board), sitting up in a chair, looks and acts much more appropriately than in the last 2 days. HEENT: EOMI, MMM Heart: RRR, no m/r/g Lungs: CTAB Abdomen: soft, nondistended : has a patricia Extremities: no edema BLEs, wearing SCDs Objective Last Vital Signs Temp 36.0 C L 10/16/22 07:47 Pulse 66 10/16/22 06:52 Resp 16 10/16/22 06:40 BP 145/47 H 10/16/22 06:52 Pulse Ox 99 10/16/22 06:40 Laboratory Results - last 24 hr 10/16/22 10/16/22 10/16/22 05:23 05:23 05:23 WBC RBC Hgb Hct MCV MCH MCHC RDW Plt Count MPV Immature Gran % Neutrophils % Lymphocytes % Monocytes % Eosinophils % Basophils % Nucleated RBC % Absolute Neutrophils Absolute Lymphocytes Absolute Monocytes Absolute Eosinophils Absolute Basophils RBC Morphology Sodium 141 Potassium 3.7 Chloride 111 H Carbon Dioxide 22.5 Anion Gap 7.5 BUN 38 H Creatinine 1.5 H Est GFR (CKD-EPI 2020) 35.89 Glucose 257 H Calcium 8.3 L Magnesium 1.7 L Iron 47 L TIBC 179 L Transferrin % Sat 26 Ferritin 681 H C-Reactive Protein 7.37 H Vitamin B12 1118 H Folate 9.4 10/16/22 05:23 WBC 6.09 RBC 3.61 L Hgb 10.6 L Hct 31.2 L MCV 86 MCH 29.4 MCHC 34.0 RDW 15.4 H Plt Count 95 L MPV 12.9 H Immature Gran % 0.8 Neutrophils % 78.5 Lymphocytes % 12.3 Monocytes % 4.9 Eosinophils % 2.8 Basophils % 0.7 Nucleated RBC % 0.0 Absolute Neutrophils 4.78 Absolute Lymphocytes 0.75 L Absolute Monocytes 0.30 Absolute Eosinophils 0.17 Absolute Basophils 0.04 RBC Morphology Normal Sodium Potassium Chloride Carbon Dioxide Anion Gap BUN Creatinine Est GFR (CKD-EPI 2020) Glucose Calcium Magnesium Iron TIBC Transferrin % Sat Ferritin C-Reactive Protein Vitamin B12 Folate Time Spent with Patient Time Spent with Patient: 25-34 minutes Time was spent: preparing to see the patient(eg.review tests), obtaining and/or reviewing separately otained hiistory, ordering medications,tests, procedures, referring, communicating with other health point of care specialist, indepentently interpreting results, counseling the patient and care coordination
[2022-10-16] MEDS: Normal Saline Flush 10 ML SYR IVP (09:51)
[2022-10-16] MEDS: Hydrocortisone 10 MG TAB 20 MG PO (09:52)
[2022-10-16] MEDS: Magnesium Chloride 64 MG TABCR PO ×2 (09:52→21:14)
[2022-10-16] MEDS: Ascorbic Acid 500 MG TAB PO ×2 (09:53→21:16)
[2022-10-16] MEDS: Pantoprazole 40 MG TABCR PO (09:53)
[2022-10-16] MEDS: Insulin NPH-Human 300 UNITS/3 ML PEN 10 UNIT SC ×2 (09:53→18:22)
[2022-10-16] MEDS: Sertraline 50 MG TAB PO (09:53)
[2022-10-16] MEDS: Insulin Aspart 300 UNITS/3 ML PEN SC ×5 (09:55→21:19)
[2022-10-16] MEDS: Pregabalin 100 MG CAP PO ×2 (10:16→21:16)
[2022-10-16] MEDS: cefTRIAXone 2 GM/50 ML BAG IVPB (12:10)
--- NOTE | 2022-10-16 12:41 | CMPROGNOTE_ITS ---
Date of service: 10/16/22 Time of Service: 12:41 Care Management Progress Note Progress Note Text Progress Note Text: S/O: Dalia continues to require hospitalization and is med surg status. She is awake and sitting in her chair watching TV when CM met with her. Dalia seemed confused when she shared with this senior technical writer that she comes to the hospital frequently to eat and also stays here sometimes. PT recommends home with HH PT vs SNF, when medically ready to discharge. CM left a message for her caregiver/daughter Diana, and is awaiting a return call. A: 76 year old female admitted to [facility] on 10/12/22 for GAMAL P: Pt recommends home with HH PT vs SNF. CM to send referral's when permission is obtained. CM is awaiting a return call from her primary caregiver/daughter Hyun. CM will follow.
[2022-10-16] MEDS: Hydrocortisone 10 MG TAB PO ×2 (13:23→21:17)
--- NOTE | 2022-10-16 18:10 | PT.INTREAT ---
Date of service: 10/16/22 Time of Service: 10:00 PT Notes Visit Reasons: Pyelonephritis, Sepsis, GAMAL, Acute Transaminitis Inpatient Physical Therapy Treatment Note [facility] Date: 10/16/22 PRECAUTIONS: Fall, standard, activity as tolerated SUBJECTIVE: morning: supine in bed, agreeable to therapy. Afternoon: supine in bed, does not want therapy, agreeable to try on second knee brace and take a few steps to ensure a good fit. OBJECTIVE: PAIN: morning c/o left knee pain, afternoon no pain reported BED MOBILITY/TRANSFERS Rolling L/R: independent Supine-sit: independent Sit-supine: independent Sit-stand: independent Stand-sit: independent Bed-Chair: standby Chair-bed: standby GAIT Assistive Device: front wheeled walker, morning left knee brace, afternoon bilateral hinged knee braces Weight bearing: full Assist: standby Distance: morning 20 feet, afternoon 4 feet Deviation: reduced step length, reduced step height. Knees no longer buckling with hinged knee braces on. No loss of balance. VITALS: closely monitored via telemetry THERACT: Transfer training, brace education ASSESSMENT: patient tolerates therapy well PLAN: continue strengthening per plan of care TREATMENT CODE/TIME: morning 04293 gait 13, 08376 Ther Act 10 minutes beginning at 10:00, afternoon 15806 Ther Act 16 minutes beginning at 14:10
[2022-10-16] MEDS: QUEtiapine 25 MG TAB 12.5 MG PO (21:14)
[2022-10-16] MEDS: Mirtazapine 15 MG TAB 30 MG PO (21:15)
[2022-10-16] MEDS: Melatonin 3 MG TAB PO (21:16)
[2022-10-16] MEDS: Pramipexole 0.5 MG TAB 1 MG PO (21:16)
[2022-10-16] MEDS: Insulin Glargine 300 UNITS/3 ML PEN 25 UNITS SC (21:19)
[2022-10-17] VITALS (7 sets, daily range): BP systolic 100–148; BP diastolic 22–83; PULSE 60–93; RESP 17–18; TEMP 36–36.7; O2SAT 95–99
[2022-10-17] MEDS: Levothyroxine 112 MCG TAB PO (05:59)
[2022-10-17 07:14] LABS: HCT 30.2 % (36.0-46.0); HGB 10.1 g/dL (11.2-15.7); MCH 29.2 pg (27.0-33.0); MCHC 33.4 % (32.0-36.0); MCV 87 fL (80-95); MPV 12.2 fL (8.0-11.0); RBC 3.46 10^6/uL (3.93-5.22); RDW 15.4 % (11.7-14.6); RDW-SD 49.2 fL; WBC 8.62 10^3/uL (4.4-10.8)
[2022-10-17 07:23] LABS: Anion Gap 11.9 mmol/L (3-11); BUN 39 mg/dL (7-18); C-Reactive Protein 3.33 mg/dL (0.0-0.3); CO2 23.1 mmol/L (21.0-32.0); CREATININE 1.3 mg/dL (0.55-1.02); Calcium 8.4 mg/dL (8.5-10.1); Chloride 115 mmol/L (98-107); Estimated GFR 42.62 (mL/min/1.73m2); Glucose 77 mg/dL (74-106); Magnesium 1.6 mg/dL (1.8-2.4); Potassium 3.3 mmol/L (3.5-5.1); Sodium 150 mmol/L (136-145)
[2022-10-17 07:49] LABS: Absolute Basophil Count 0.09 10^3/uL (0.0-0.2); Absolute Eosinophil Count 0.17 10^3/uL (0.0-0.7); Absolute Lymphocyte Count 0.86 10^3/uL (1.2-3.4); Absolute Monocyte Count 0.52 10^3/uL (0.1-0.8); Absolute Neutrophil Count 6.72 10^3/uL (1.2-6.7); Bands % 3; Diff Comment Manual Differential; Myelocytes % 3; Platelet Count 145 10^3/uL (130-400); RBC Morphology Normal
[2022-10-17] MEDS: Magnesium Chloride 64 MG TABCR PO ×2 (08:02→20:11)
[2022-10-17] MEDS: Pantoprazole 40 MG TABCR PO (08:02)
[2022-10-17] MEDS: Hydrocortisone 10 MG TAB 20 MG PO (08:02)
[2022-10-17] MEDS: Sertraline 50 MG TAB PO (08:02)
[2022-10-17] MEDS: Pregabalin 100 MG CAP PO ×2 (08:02→20:12)
[2022-10-17] MEDS: Insulin Aspart 300 UNITS/3 ML PEN SC ×5 (08:04→21:36)
[2022-10-17] MEDS: Insulin NPH-Human 300 UNITS/3 ML PEN 10 UNIT SC ×2 (08:05→17:15)
[2022-10-17] MEDS: Ascorbic Acid 500 MG TAB PO ×2 (08:10→20:12)
[2022-10-17 08:13] LABS: Procalcitonin 11.5 ng/mL
[2022-10-17] MEDS: Potassium Chloride 20 MEQ TABCR 40 MEQ PO (09:08)
[2022-10-17] MEDS: MAGNESIUM SULFATE 2 GM/50 ML BAG IVPB (09:08)
[2022-10-17] MEDS: DEXTROSE 5%-WATER 1,000 ML 100 ML IV ×2 (09:08→22:14)
[2022-10-17] MEDS: Normal Saline Flush 10 ML SYR IVP (09:09)
--- NOTE | 2022-10-17 10:39 | PT.INTREAT ---
PT Notes Visit Reasons: Pyelonephritis, Sepsis, GAMAL, Acute Transaminitis Date: 10/17/22 PRECAUTIONS: Fall, standard, activity as tolerated SUBJECTIVE: Pt in bed when approached for therapy this morning, pt agreed to participating with therapy. OBJECTIVE: ? PAIN: pain on IV sites very cautious. ? BED MOBILITY/TRANSFERS? Rolling L/R: independent Supine-sit: independent? Sit-supine: min A? Sit-stand: CGA ? Stand-sit: CGA ? Bed-Chair: CGA ? Chair-bed:? CGA ? GAIT? Assistive Device: front wheeled walker? Weight bearing: full Assist: CGA ? Distance:? 20' x2 with 180degree turn every 10' ? Deviation: forward leaning posture, WBOS, short step height and step length. ? THEREX: Instructed patient in Seated marching, LAQ ankle pumps [id number] each? ASSESSMENT:? Patient initially very apprehensive, demonstrated increased confidence with activity after repetition, pt went back in bed post stherapy session. PLAN: Continue global strengthening per plan of care until patient is medically cleared for discharge TREATMENT CODE/TIME: Therapeutic activity 68221 20mins, gait training 23756 15mins ( 10:08- 10:33am)
[2022-10-17] MEDS: cefTRIAXone 2 GM/50 ML BAG IVPB (11:53)
[2022-10-17 12:53] LABS: Anion Gap 11.2 mmol/L (3-11); BUN 40 mg/dL (7-18); CO2 22.8 mmol/L (21.0-32.0); CREATININE 1.3 mg/dL (0.55-1.02); Calcium 8.5 mg/dL (8.5-10.1); Chloride 113 mmol/L (98-107); Estimated GFR 42.62 (mL/min/1.73m2); Glucose 141 mg/dL (74-106); Potassium 3.8 mmol/L (3.5-5.1); Sodium 147 mmol/L (136-145)
--- NOTE | 2022-10-17 13:03 | CMPROGNOTE_ITS ---
Date of service: 10/17/22 Time of Service: 13:04 Care Management Progress Note Progress Note Text Progress Note Text: S/O: Dalia continues to require hospitalization. She is awake and sitting in her chair watching TV when CM met with her.? PT recommends home with PT vs SNF, when medically ready to discharge. Per Diana, she is prepared to have her mom discharge home with New [facility] RN/PT, when medically ready.? Diana is her primary caregiver and doesn't feel that [facility] or [facility] FOOD MIXER REPAIRER for termite treater planning is needed at this time. CM placed a referral to [facility] as requested. A: 76 year old female admitted to [facility] on 10/12/22 for GAMAL P: Pt recommends home with HH PT vs SNF. Anticipate pt will discharge home with New [facility] RN/PT and caregiver support, when medically ready per provider. She will follow up with community providers and discharge plan of care as instructed. [facility] referral is placed, pt is interested in [facility]. CM will follow.
--- NOTE | 2022-10-17 13:03 | PDOC.CMPRO ---
Date of service: 10/17/22 Time of Service: 13:04 Care Management Progress Note Progress Note Text Progress Note Text: S/O: Dalia continues to require hospitalization. She is awake and sitting in her chair watching TV when CM met with her.? PT recommends home with PT vs SNF, when medically ready to discharge. Per Diana, she is prepared to have her mom discharge home with New [facility] RN/PT, when medically ready.? Diana is her primary caregiver and doesn't feel that [facility] or [facility] BLIND LACER for intermodal truck driver planning is needed at this time. CM placed a referral to [facility] as requested. A: 76 year old female admitted to [facility] on 10/12/22 for GAMAL P: Pt recommends home with HH PT vs SNF. Anticipate pt will discharge home with New [facility] RN/PT and caregiver support, when medically ready per provider. She will follow up with community providers and discharge plan of care as instructed. [facility] referral is placed, pt is interested in [facility]. CM will follow.
--- NOTE | 2022-10-17 13:59 | NUR.NOTE ---
In chart for sepsis quality and education review Nursing Note:
[2022-10-17] MEDS: Hydrocortisone 10 MG TAB PO ×2 (14:20→20:11)
--- NOTE | 2022-10-17 16:14 | PGE_ITS ---
Date of Service Date of service: 10/17/22 Time of Service: 16:15 Assessment and Plan Assessment and plan (1) Sepsis with acute liver failure and septic shock: Status: Acute Assessment and plan: Due to E. Coli pyelonephritis and E. Coli bacteremia, present on admission. Meropenem may have been contributing to AMS. Changed to ceftriaxone and is continuing to improve clinically. Lactic acid normalized. LFTs are improving. Continue ceftriaxone with a plan for 2 weeks of abx. (2) E. coli pyelonephritis: Status: Acute Assessment and plan: As above There is evidence of nephrolithiasis on imaging, but none obstructive. Should she clinically worsen, urology feels that she might benefit from a ureteral stent. (3) Gram-negative bacteremia: Status: Acute Assessment and plan: As above (4) Toxic metabolic encephalopathy: Status: Resolved Assessment and plan: IN setting of E Coli bacteremia/septic shock/pyelonephritis. Additionally, there is underlying dementia, and the patient has a component of delirium, which could be related to being outside of her usual environment. Her medications have now been properly timed, meropenem changed to ceftriaxone, and she has been started on a very low dose of seroquel at night. She has clearly improved. We need to do our best to maintain a regular sleeping schedule. Trend procalcitonin, CRP. (Procalcitonin can also be elevated in setting of adrenal insufficiency) (5) Acute renal failure superimposed on chronic kidney disease: Status: Acute Assessment and plan: Improving. Continue treatment of infection. Encourage PO fluids. Monitor UOP. (6) Insulin-requiring or dependent type II diabetes mellitus: Status: Acute Assessment and plan: Continue basal bolus insulin (7) Acute dehydration: Status: Resolved Assessment and plan: Appears to be euvolemic. Encourage PO fluids. (8) Thrombocytopenia: Status: Chronic Assessment and plan: Plt count is improving - 145 today. Resume heparin. No evidence of active bleeding. DDx: due to sepsis proper, antibiotics, or heparin. Monitor platelets with heparin being resumed. No further workup at this time. (9) Steroid-induced adrenal suppression: Status: Acute Assessment and plan: Continue PO hydrocortisone. (10) Hypoalbuminemia: Status: Acute Assessment and plan: Encourage PO nutrition. (11) Anemia: Status: Chronic Assessment and plan: In setting of thrombocytopenia but no obvious active bleeding. Anemia studies wnl. Hematest pending. (12) Metabolic acidosis: Status: Resolved Assessment and plan: In setting of GAMAL on CKD, lactic acidosis (now resolved), but also hypergl ycemia/DKA. Now resolved. (13) DVT prophylaxis: Status: Acute Assessment and plan: Resuming heparin. D/c SCDs. (14) Discharge planning issues: Status: Acute Assessment and plan: Full code Continues to require hospitalization. Anticipate D/c home in the next 48 hrs. Subjective Subjective Interval history since last seen: Ms Reyna states that she is feeling better today, that she is having a very good day. Denies dizziness, CP, SOB, n/v. She didn't sleep well last night. States it's difficult for her to get sleep in an unfamiliar place. She would like to be home by her birthday (10[birth year]). Exam Narrative Exam Narrative: General: elderly female who is A&Ox3, laying comfortably in bed, very interactive and appropriate HEENT: EOMI, MMM Heart: RRR, no m/r/g Lungs: CTAB Abdomen: soft, nondistended Extremities: no edema BLEs, wearing SCDs Objective Last Vital Signs Temp 36.7 C 10/17/22 15:08 Pulse 63 10/17/22 15:08 Resp 18 10/17/22 15:08 BP 128/82 10/17/22 15:08 Pulse Ox 98 10/17/22 15:08 Laboratory Results - last 24 hr 10/17/22 10/17/22 10/17/22 06:50 06:50 06:50 WBC 8.62 RBC 3.46 L Hgb 10.1 L Hct 30.2 L MCV 87 MCH 29.2 MCHC 33.4 RDW 15.4 H Plt Count 145 D MPV 12.2 H Immature Gran % See Differential Neutrophils % 75.0 Band Neutrophils % 3 Lymphocytes % 10.0 Monocytes % 6.0 Eosinophils % 2.0 Basophils % 1.0 Myelocytes % 3 Nucleated RBC % 0.0 Absolute Neutrophils 6.72 H Absolute Lymphocytes 0.86 L Absolute Monocytes 0.52 Absolute Eosinophils 0.17 Absolute Basophils 0.09 RBC Morphology Normal Sodium 150 H Potassium 3.3 L Chloride 115 H Carbon Dioxide 23.1 Anion Gap 11.9 H BUN 39 H Creatinine 1.3 H Est GFR (CKD-EPI 2020) 42.62 Glucose 77 Calcium 8.4 L Magnesium 1.6 L C-Reactive Protein 3.33 H Procalcitonin 11.5 10/17/22 12:22 WBC RBC Hgb Hct MCV MCH MCHC RDW Plt Count MPV Immature Gran % Neutrophils % Band Neutrophils % Lymphocytes % Monocytes % Eosinophils % Basophils % Myelocytes % Nucleated RBC % Absolute Neutrophils Absolute Lymphocytes Absolute Monocytes Absolute Eosinophils Absolute Basophils RBC Morphology Sodium 147 H Potassium 3.8 Chloride 113 H Carbon Dioxide 22.8 Anion Gap 11.2 H BUN 40 H Creatinine 1.3 H Est GFR (CKD-EPI 2020) 42.62 Glucose 141 H Calcium 8.5 Magnesium C-Reactive Protein Procalcitonin Time Spent with Patient Time Spent with Patient: 25-34 minutes Time was spent: preparing to see the patient(eg.review tests), obtaining and/or reviewing separately otained hiistory, ordering medications,tests, procedures, referring, communicating with other health nurse care manager, indepentently interpreting results, counseling the patient and care coordination
[2022-10-17] MEDS: Heparin 5,000 UNITS/ML VIAL 5000 UNITS SC (17:52)
[2022-10-17 18:16] LABS: Sodium 144 mmol/L (136-145)
--- NOTE | 2022-10-17 18:37 | PT.INTREAT ---
Date of service: 10/17/22 Time of Service: 14:02 PT Notes Visit Reasons: Pyelonephritis, Sepsis, GAMAL, Acute Transaminitis Inpatient Physical Therapy Treatment Note [facility] Date: 10/17/22 PRECAUTIONS: Fall, standard, activity as tolerated SUBJECTIVE: Patient sitting up in recliner, agreeable to therapy OBJECTIVE: PAIN: none reported BED MOBILITY/TRANSFERS Rolling L/R: independent Supine-sit: independent Sit-supine: independent Sit-stand: independent Stand-sit: independent Bed-Chair: independent Chair-bed: independent GAIT Assistive Device: front wheeled walker Weight bearing: full Assist: CGA Distance: 75 feet Deviation: Reduced step height, reduced step length, c/o dyspnea, VITALS: monitored via telemetry THEREX: 10x seated long arc quads, hamstring curls against therapist manual resistance, heel raises, toe raises, hip adduction vs pillow, hip abduction vs therapist manual resistance with verbal cues for appropriate muscle recruitment ASSESSMENT: patient tolerates therapy well PLAN: continue strengthening per plan of care until patient is medically cleared for discharge. TREATMENT CODE/TIME: 32829 gait 15 minutes, [id number] ther ex 12 minutes beginning at 14:02
[2022-10-17] MEDS: Mirtazapine 15 MG TAB 30 MG PO (21:30)
[2022-10-17] MEDS: QUEtiapine 25 MG TAB 12.5 MG PO (21:31)
[2022-10-17] MEDS: Melatonin 3 MG TAB PO (21:32)
[2022-10-17] MEDS: Pramipexole 0.5 MG TAB 1 MG PO (21:32)
[2022-10-17] MEDS: Insulin Glargine 300 UNITS/3 ML PEN 25 UNITS SC (21:33)
[2022-10-18] VITALS (7 sets, daily range): BP systolic 114–148; BP diastolic 50–79; PULSE 60–84; RESP 18–22; TEMP 36.1–36.7; O2SAT 96–100
[2022-10-18] MEDS: Levothyroxine 112 MCG TAB PO (05:45)
[2022-10-18] MEDS: Heparin 5,000 UNITS/ML VIAL 5000 UNITS SC ×2 (05:45→17:30)
[2022-10-18] MEDS: DEXTROSE 5%-WATER 1,000 ML 100 ML IV (06:34)
[2022-10-18 07:35] LABS: Abs Immature Grans 0.81 10^3/uL (0.0-0.06); HCT 32.7 % (36.0-46.0); HGB 10.9 g/dL (11.2-15.7); MCH 29.1 pg (27.0-33.0); MCHC 33.3 % (32.0-36.0); MCV 87 fL (80-95); MPV 11.1 fL (8.0-11.0); RBC 3.74 10^6/uL (3.93-5.22); RDW 15.4 % (11.7-14.6); RDW-SD 49.1 fL; WBC 7.41 10^3/uL (4.4-10.8)
[2022-10-18 08:07] LABS: BUN 35 mg/dL (7-18); CREATININE 1.4 mg/dL (0.55-1.02); Calcium 8.6 mg/dL (8.5-10.1); Chloride 108 mmol/L (98-107); Estimated GFR 38.99 (mL/min/1.73m2); Glucose 283 mg/dL (74-106); Magnesium 1.8 mg/dL (1.8-2.4); Potassium 3.8 mmol/L (3.5-5.1); Sodium 141 mmol/L (136-145)
[2022-10-18] MEDS: Pregabalin 100 MG CAP PO ×2 (08:15→20:25)
[2022-10-18] MEDS: Magnesium Chloride 64 MG TABCR PO ×2 (08:15→20:24)
[2022-10-18] MEDS: Pantoprazole 40 MG TABCR PO (08:15)
[2022-10-18] MEDS: Hydrocortisone 10 MG TAB 20 MG PO (08:15)
[2022-10-18] MEDS: Sertraline 50 MG TAB PO (08:15)
[2022-10-18] MEDS: Ascorbic Acid 500 MG TAB PO ×2 (08:16→20:24)
[2022-10-18] MEDS: Insulin Aspart 300 UNITS/3 ML PEN SC ×7 (08:17→21:43)
[2022-10-18] MEDS: Insulin NPH-Human 300 UNITS/3 ML PEN 10 UNIT SC ×2 (08:18→17:10)
[2022-10-18 08:21] LABS: ALT 46 U/L (14-59); AST 22 U/L (15-37); Albumin 2.3 g/dL (3.4-5.0); Alkaline Phosphatase 120 U/L (46-116); Bilirubin, Direct 0.2 mg/dL (0.0-0.2); Bilirubin, Total 0.3 mg/dL (0.2-1.0); Total Protein 6.2 g/dL (6.4-8.2)
[2022-10-18 08:25] LABS: Platelet Count 207 10^3/uL (130-400)
[2022-10-18 08:26] LABS: Absolute Basophil Count 0.15 10^3/uL (0.0-0.2); Absolute Eosinophil Count 0.44 10^3/uL (0.0-0.7); Absolute Lymphocyte Count 0.89 10^3/uL (1.2-3.4); Absolute Neutrophil Count 5.34 10^3/uL (1.2-6.7); Bands % 6
[2022-10-18 08:27] LABS: Diff Comment Manual Differential; Metamyelocytes % 2; Myelocytes % 2
[2022-10-18 08:28] LABS: Polychromasia Present
--- NOTE | 2022-10-18 09:30 | CMPROGNOTE_ITS ---
Date of service: 10/18/22 Time of Service: 09:30 Care Management Progress Note Progress Note Text Progress Note Text: S/O:? Dalia was sitting up in a chair when CM met with her. She was in good spirits and stated that she is feeling much better. She informed CM that she thought she would be discharged today but has been told she needs another day or two of IV antibiotics. An attempt was made today to place a midline catheter but it was not successful. A long 20G IV was placed with ultrasound instead. Dalia shared that she really wants to be home for her birthday, which is [birth year]. She was assured by the provider that she would be, A: 76 year old female admitted to [facility] on 10/12/22 for GAMAL P: Pt recommends home with PT vs SNF.? Anticipate pt will discharge home with New [facility] RN/PT and caregiver support, when medically ready per provider. She will follow up with community providers and discharge plan of care as instructed. [facility] referral is placed, pt is interested in [facility]. CM will follow.
[2022-10-18 10:34] LABS: Lab Add On Test DONE
[2022-10-18 11:04] LABS: Procalcitonin 4.5 ng/mL
[2022-10-18] MEDS: Normal Saline Flush 10 ML SYR IVP (11:04)
--- NOTE | 2022-10-18 13:43 | PGE_ITS ---
Date of Service Date of service: 10/18/22 Time of Service: 13:43 Assessment and Plan Assessment and plan (1) Sepsis with acute liver failure and septic shock: Status: Acute Assessment and plan: Due to E. Coli pyelonephritis and E. Coli bacteremia, present on admission Continue ceftriaxone, is continuing to improve clinically Lactic acid normalized. LFTs are improving. (2) E. coli pyelonephritis: Status: Resolved Assessment and plan: As above There is evidence of nephrolithiasis on imaging, but none obstructive. Should she clinically worsen, urology feels that she might benefit from a ureteral stent. (3) Gram-negative bacteremia: Status: Resolved Assessment and plan: As above (4) Toxic metabolic encephalopathy: Status: Resolved Assessment and plan: In setting of E Coli bacteremia/septic shock/pyelonephritis. Dementia with some delirium - continue seroquel Trend procalcitonin, down to 4.5 today (5) Acute renal failure superimposed on chronic kidney disease: Status: Resolved Assessment and plan: Improving. Continue treatment of infection. Encourage PO fluids. Monitor UOP. (6) Insulin-requiring or dependent type II diabetes mellitus: Status: Acute Assessment and plan: Continue basal bolus insulin (7) Acute dehydration: Status: Resolved Assessment and plan: Appears to be euvolemic. Encourage PO fluids. (8) Thrombocytopenia: Status: Resolved Assessment and plan: Plt count is improving - 207 up from 145 yesterday, continue heparin. No evidence of active bleeding. DDx: due to sepsis proper, antibiotics, or heparin. Monitor platelets with heparin being resumed. No further workup at this time. (9) Steroid-induced adrenal suppression: Status: Acute Assessment and plan: Continue PO hydrocortisone. (10) Hypoalbuminemia: Status: Resolved Assessment and plan: Encourage PO nutrition. (11) Anemia: Status: Resolved Assessment and plan: In setting of thrombocytopenia but no obvious active bleeding. Anemia studies wnl. Hematest negative (12) Metabolic acidosis: Status: Resolved Assessment and plan: In setting of GAMAL on CKD, lactic acidosis (now resolved), but also hyperglycemia/DKA. Now resolved. (13) DVT prophylaxis: Status: Deleted Assessment and plan: Continue heparin (14) Discharge planning issues: Status: Deleted Assessment and plan: Full code Continues to require hospitalization. Anticipate D/c home in the next 48 hrs. Subjective Subjective Patient reports: no new complaints, voiding w/o difficulty, bowel movement and afebrile; denies diarrhea, nausea, vomiting or shortness of breath Interval history since last seen: C/A Ox3, conversant, pleasant. Exam Narrative Exam Narrative: General: elderly female who is A&Ox3, laying comfortably in bed, very interactive and appropriate HEENT: EOMI, MMM Heart: RRR, no m/r/g Lungs: CTAB Abdomen: soft, nondistended Extremities: no edema BLEs, wearing SCDs Objective Last Vital Signs Temp 36.6 C 10/18/22 11:23 Pulse 64 10/18/22 11:23 Resp 18 10/18/22 11:23 BP 116/71 10/18/22 11:23 Pulse Ox 100 10/18/22 11:23 Laboratory Results - last 24 hr 10/17/22 10/18/22 10/18/22 18:05 07:20 07:20 WBC 7.41 RBC 3.74 L Hgb 10.9 L Hct 32.7 L MCV 87 MCH 29.1 MCHC 33.3 RDW 15.4 H Plt Count 207 MPV 11.1 H Immature Gran % See Differential Neutrophils % 66.0 Band Neutrophils % 6 Lymphocytes % 12.0 Monocytes % 4.0 Eosinophils % 6.0 Basophils % 2.0 Metamyelocytes % 2 Myelocytes % 2 Nucleated RBC % 0.0 Absolute Neutrophils 5.34 Absolute Lymphocytes 0.89 L Absolute Monocytes 0.30 Absolute Eosinophils 0.44 Absolute Basophils 0.15 RBC Morphology See Below Polychromasia Present Sodium 144 141 Potassium 3.8 Chloride 108 H Carbon Dioxide 22.0 Anion Gap 11.0 BUN 35 H Creatinine 1.4 H Est GFR (CKD-EPI 2020) 38.99 Glucose 283 H Calcium 8.6 Magnesium 1.8 Total Bilirubin Conjugated Bilirubin AST ALT Alkaline Phosphatase Total Protein Albumin Procalcitonin Add-On Test Request 10/18/22 10/18/22 10/18/22 07:20 07:20 07:20 WBC RBC Hgb Hct MCV MCH MCHC RDW Plt Count MPV Immature Gran % Neutrophils % Band Neutrophils % Lymphocytes % Monocytes % Eosinophils % Basophils % Metamyelocytes % Myelocytes % Nucleated RBC % Absolute Neutrophils Absolute Lymphocytes Absolute Monocytes Absolute Eosinophils Absolute Basophils RBC Morphology Polychromasia Sodium Potassium Chloride Carbon Dioxide Anion Gap BUN Creatinine Est GFR (CKD-EPI 2020) Glucose Calcium Magnesium Total Bilirubin 0.3 Conjugated Bilirubin 0.2 AST 22 ALT 46 Alkaline Phosphatase 120 H Total Protein 6.2 L Albumin 2.3 L Procalcitonin 4.5 Add-On Test Request DONE Time Spent with Patient Time Spent with Patient: 35-49 minutes Time was spent: preparing to see the patient(eg.review tests), ordering medications,tests, procedures, referring, communicating with other health primary care sales representative, indepentently interpreting results, counseling the patient and care coordination
[2022-10-18] MEDS: Hydrocortisone 10 MG TAB PO ×2 (14:21→20:24)
--- NOTE | 2022-10-18 15:11 | PT.INNT ---
PT Notes Visit Reasons: Pyelonephritis, Sepsis, GAMAL, Acute Transaminitis Pt was not available for therapy post lunch due to pt getting setup for main pic line.
[2022-10-18] MEDS: cefTRIAXone 2 GM/50 ML BAG IVPB (15:29)
--- NOTE | 2022-10-18 16:24 | PT.INTREAT ---
PT Notes Visit Reasons: Pyelonephritis, Sepsis, GAMAL, Acute Transaminitis Date: 10/18/22 PRECAUTIONS: Fall, standard, activity as tolerated SUBJECTIVE: Pt agreed to participating with therapy later in the afternoon, pt in bed when approached for therapy OBJECTIVE: ? PAIN: pain on IV sites very cautious. ? BED MOBILITY/TRANSFERS? Rolling L/R: independent Supine-sit: independent? Sit-supine: CGA? Sit-stand: CGA ? Stand-sit: CGA ? Bed-Chair: CGA ? Chair-bed:? CGA ? GAIT? Assistive Device: front wheeled walker? Weight bearing: full Assist: CGA ? Distance:? 160' ? Deviation: forward leaning posture, WBOS, short step height and step length. ? ASSESSMENT:? pt required assistance with donning bilateral knee brace prior to activity, doffing at end of session, pt tolerating gait training in [facility], had initial Right UE pain on previous IV line upon UE weight bearing went away quick and did not have any other episode of antecubital pain/arm pain the entire duration of session. PLAN: Continue global strengthening per plan of care until patient is medically cleared for discharge TREATMENT CODE/TIME: 27381 gait training 20mins (4:00-4:20pm)
[2022-10-18] MEDS: Melatonin 3 MG TAB PO (21:38)
[2022-10-18] MEDS: QUEtiapine 25 MG TAB 12.5 MG PO (21:38)
[2022-10-18] MEDS: Pramipexole 0.5 MG TAB 1 MG PO (21:39)
[2022-10-18] MEDS: Mirtazapine 15 MG TAB 30 MG PO (21:40)
[2022-10-18] MEDS: Insulin Glargine 300 UNITS/3 ML PEN 25 UNITS SC (21:40)
[2022-10-19 03:58] VITALS: BP 136/64; PULSE 66; RESP 18; TEMP 36; O2SAT 97
[2022-10-19] MEDS: Levothyroxine 112 MCG TAB PO (05:34)
[2022-10-19] MEDS: Heparin 5,000 UNITS/ML VIAL 5000 UNITS SC (05:34)
[2022-10-19 06:49] LABS: Abs Immature Grans 1.01 10^3/uL (0.0-0.06); Absolute Basophil Count 0.08 10^3/uL (0.0-0.2); Absolute Eosinophil Count 0.22 10^3/uL (0.0-0.7); Absolute Lymphocyte Count 1.42 10^3/uL (1.2-3.4); Absolute Neutrophil Count 4.75 10^3/uL (1.2-6.7); Eosinophils % 2.8; HCT 31.7 % (36.0-46.0); HGB 10.5 g/dL (11.2-15.7); Immature Grans % 12.7; Lymphocytes % 17.8; MCH 29.2 pg (27.0-33.0); MCHC 33.1 % (32.0-36.0); MCV 88 fL (80-95); Monocytes % 6.3; Neutrophils % 59.4; Platelet Count 247 10^3/uL (130-400); RDW 15.5 % (11.7-14.6); RDW-SD 49.3 fL; WBC 7.98 10^3/uL (4.4-10.8)
[2022-10-19 07:13] LABS: Diff Comment Diff Reviewed; RBC Morphology Normal
[2022-10-19 07:17] VITALS: BP 128/65; PULSE 58; TEMP 35.7; O2SAT 98
[2022-10-19 07:53] LABS: Anion Gap 9.9 mmol/L (3-11); BUN 32 mg/dL (7-18); C-Reactive Protein 1.15 mg/dL (0.0-0.3); CO2 23.1 mmol/L (21.0-32.0); CREATININE 1.2 mg/dL (0.55-1.02); Calcium 8.4 mg/dL (8.5-10.1); Chloride 112 mmol/L (98-107); Estimated GFR 46.91 (mL/min/1.73m2); Glucose 156 mg/dL (74-106); Magnesium 1.7 mg/dL (1.8-2.4); Potassium 3.6 mmol/L (3.5-5.1); Sodium 145 mmol/L (136-145)
[2022-10-19] MEDS: Sertraline 50 MG TAB PO (07:54)
[2022-10-19] MEDS: Pregabalin 100 MG CAP PO (07:54)
[2022-10-19] MEDS: Pantoprazole 40 MG TABCR PO (07:54)
[2022-10-19] MEDS: Ascorbic Acid 500 MG TAB PO (07:54)
[2022-10-19] MEDS: Hydrocortisone 10 MG TAB 20 MG PO (07:54)
[2022-10-19] MEDS: Magnesium Chloride 64 MG TABCR PO (07:54)
[2022-10-19] MEDS: Insulin NPH-Human 300 UNITS/3 ML PEN 10 UNIT SC (07:56)
[2022-10-19] MEDS: Insulin Aspart 300 UNITS/3 ML PEN SC ×4 (07:57→12:57)
[2022-10-19 08:00] VITALS: RESP 18; O2SAT 96
--- NOTE | 2022-10-19 08:48 | PHA.REVIEW2 ---
Pharmacy Admission Review Admission Clinical Review Admission Pharmacy Review: (Updated 10/16/22 @ 09:29 by Anahi Vasquez MD) E. coli pyelonephritis (Acute) Gram-negative bacteremia (Acute) Hypoalbuminemia (Acute) Hypocalcemia (Acute) Elevated transaminase level (Acute) Hyperglycemia (Acute) Normal anion gap metabolic acidosis (Acute) High anion gap metabolic acidosis (Acute) Acute renal failure superimposed on chronic kidney disease (Acute) Lactic acidosis (Acute) Leukocytosis (Acute) Full code status (Acute) Discharge planning issues (Acute) DVT prophylaxis (Acute) Insulin-requiring or dependent type II diabetes mellitus (Acute) Sepsis with acute liver failure and septic shock (Acute) Septic shock (Acute) Acute pyelonephritis (Acute) Steroid-induced adrenal suppression (Acute) GAMAL (acute kidney injury) (Acute) adhesive tape Allergy (Unverified 10/12/22 12:20) naproxen Allergy (Unverified 10/12/22 12:20) Penicillins Allergy (Unverified 10/12/22 12:20) Sulfa (Sulfonamide Antibiotics) Allergy (Unverified 10/12/22 12:20) zolpidem [From Ambien] Allergy (Unverified 10/12/22 12:20) Resuscitation Status Full Code Height 5 ft 6 in Weight 90 kg Pharmacy Admission Review Renal Dosing Renal Dosing: BUN 32 mg/dL (7-18) H 10/19/22 06:28 Creatinine 1.2 mg/dL (0.55-1.02) H 10/19/22 06:28 Medications needing adjustments: Reviewed (eCrCl 45 ml/min) List of meds needing interventions: all orders dosed appropriately Anticoagulation Anticoagulation: Hgb 10.5 g/dL (11.2-15.7) L 10/19/22 06:28 Hct 31.7 % (36.0-46.0) L 10/19/22 06:28 Plt Count 247 10^3/uL (130-400) 10/19/22 06:28 INR 1.0 (0.9-1.1) 10/12/22 19:47 Creatinine 1.2 mg/dL (0.55-1.02) H 10/19/22 06:28 DVT Prophylaxis: Reviewed Medications: Heparin Opiate Usage Evaluate Pain Scale/Pains Meds: N/A Relevant Labs Relevant Labs: Sodium 145 mmol/L (136-145) 10/19/22 06:28 Potassium 3.6 mmol/L (3.5-5.1) 10/19/22 06:28 Chloride 112 mmol/L (98-107) H 10/19/22 06:28 Phosphorus 4.2 mg/dL (2.6-4.7) 10/13/22 05:25 Magnesium 1.7 mg/dL (1.8-2.4) L 10/19/22 06:28 C-Reactive Protein 1.15 mg/dL (0.0-0.3) H 10/19/22 06:28 Electrolytes, C-Reactive P, ESR: Reviewed DM Control Insulin Dosing: Reviewed Insulin Dosing, Diabetic Medication: glargine 25u plus aspart per SS/carb coverage, 10u NPH BID while she is on hydrocortisone Cardiac Review EF%, YANELY's, B-Blockers, Diuretics: N/A QTc Review If Elevated: Not Reviewed IV to PO Switch IV Medications: Reviewed Home Meds Home Med List reviewed: Reviewed Relevent Home Meds Not ordered & why?: hydroxychloroquine Current Meds Current Medication Order Review: Reviewed Pharmacy Antibiotic Review Relevant Labs: Relevant Labs 10/19/22 10/18/22 06:28 07:20 C-Reactive Protein 1.15 H Procalcitonin 4.5 Pharmacy Antibiotic Activity: 48 hour review and IV to PO Comments: ceftriaxone continues for sepsis with liver failure + septic shock x 2 weeks
[2022-10-19] MEDS: MAGNESIUM SULFATE 2 GM/50 ML BAG IVPB (09:30)
--- NOTE | 2022-10-19 10:20 | PDOC.HHF2F ---
Home Health Referral Home Health Orders Clinical synopsis of why skilled professionals are needed: This is a 76-year-old female patient with past medical history of psoriatic arthritis and has been on steroids for the last 3 months as well as a longstanding history of type 2 diabetes mellitus requiring insulin as well as a history of chronic UTIs.? Patient presented to the emergency department with altered mental status and hypotension and was brought in by EMS. Workup revealed septic shock secondary to left pyelonephritis w/ GAMAL, and hepatic insufficiency but no obstructive uropathy.? Patient had been unwell for 3 days prior to admission with progressive weakness and fatigue, lethargy, nausea and vomiting.? The morning of admission, she was, according to her daughter, poorly responsive having garbled speech was incoherent and incontinent of urine.? Patient had nausea and vomiting Patient had been on recent antibiotics for UTI.? Patient reportedly was hypotensive when EMS found her and found her to be tachypneic with a low-grade fever.? In the ED she became hypotensive 51/25. She was admitted to the ICU for septic shock due to pyelonephritis, found to have gram negative jimbo bacteremia.? She did require vasopressors briefly in the ICU, and insulin drip and meropenem.? She improved and was moved to the medical floor.? She was continued on antibiotics, had negative blood cultures and switched to ceftriaxone. She was seen by urology and did not require instrumentation.? She was seen and treated by PT.? She was discharged to home with cefpodoxime. She will benefit from home health nursing for medication management as well as monitor chronic disease progression and PT for strengthening.? Medical diagnosis necessitation home health referral: Pylonephritis Registered Nurse: Check all that apply Instruct on new or changed medication(s)/assess compliance: Ordered Assess for exacerbation of medical condition, instruct patient/caregivers on signs and symptoms to report for early detection: Ordered Physical Therapist: Check all that apply Increase strength & endurance for safe mobility at home: Ordered To design/establish home maintenance program: Ordered Fall reduction therapy program for patient with history of frequent falls: Ordered Home safety evaluation and teaching/gait training including stair management (if applicable): Ordered Occupational Therapist: Evaluate and treat for patient unable to perform ADL/IADL/self-care: Ordered Upper extremity strengthening, range and motion: Ordered Run Lead: Assist with moth exterminator care planning: Ordered Home Bound Status Requires the aid of supportive device (check all that apply): Walker Assistance of another person (Describe assistance and medical necessity): requires assistance of another person to ambulate safely Describe why leaving home would require a considerable and taxing effort: Requires frequent rest periods and Incontinence Encounter Date and Reason: I certify that a FTF encounter for this patient was performed on October 20, 2022 and that such encounter was related to the primary reason the patient requires home health services. The encounter was conducted in the following manner: By me as the certifying physician, RESIDENTIAL CARPET INSTALLER, PA or By an inpatient physician, RESIDENTIAL CARPET INSTALLER or PA during an inpatient stay who communicated findings to me, Certification And Authentication I certify that I composed the above information based on my clinical judgment relating to this patient's medical condition and, if applicable, clinical findings communicated to me by the NPP or inpatient physician who performed the FTF encounter. Name of Provider that will be monitoring home health services: Kody Nolasco
--- NOTE | 2022-10-19 10:56 | PT.INTREAT ---
Date of service: 10/19/22 Time of Service: 10:38 PT Notes Visit Reasons: Pyelonephritis, Sepsis, GAMAL, Acute Transaminitis Inpatient Physical Therapy Treatment Note [facility] Date: 10/19/22 PRECAUTIONS: Fall, standard, activity as tolerated. SUBJECTIVE: Patient reports feeling as though she does not need her knee braces right now and would prefer to not wear them. She wears them when her knees feel wobbly, like they're going to give out. Sitting up in recliner, IV access through RUE, IV attached. Reports that she expects to D/C home today around 2:30 OBJECTIVE: PAIN: none reported BED MOBILITY/TRANSFERS Rolling L/R: independent Supine-sit: independent Sit-supine: independent Sit-stand: independent Stand-sit: independent Bed-Chair: standby Chair-bed: standby GAIT Assistive Device: FWW Weight bearing: full Assist: CGA, also help managing IV pole Distance: 225 feet Deviation: Reduced step length, reduced santo. Patient reports mild dyspnea, does not appear out of breath. No loss of balance. ASSESSMENT: Patient tolerates therapy well, is eager to return home PLAN: Return home with HHPT TREATMENT CODE/TIME: 60994 Gait 15 minutes beginning at 10:38
--- NOTE | 2022-10-19 10:57 | PDOC.CMDIS ---
Date of service: 10/19/22 Time of Service: 10:57 LACE Index Scoring Tool Questions: Length of Stay (in days): 7 - 13 Was the patient admitted via the E.D.?: Yes Comorbidities: Diabetes w/o Complication and Liver or Renal Disease E.D. Visits: 1 Answers: Total Score: 14 Risk of Readmission: High Risk Care Management Discharge Plan Reason for Hospitalization: septic shock Discharge Plan: Dalia will discharge home with New [facility] RN/PT and caregiver support. She will follow up with community providers and discharge plan of care as instructed. [facility] referral was placed. Dalia will transport via private vehicle with family. Patient/Family Education Needs: Review of discharge instructions, activity, limitations, follow up plan, discuss Ask Me Three. Services Needed at Discharge: Home Health Care Services
[2022-10-19 11:09] VITALS: BP 143/56; PULSE 67; TEMP 34.8; O2SAT 97
--- NOTE | 2022-10-19 12:09 | W.PM.DS.N ---
Date of service: 10/19/22 Time of Service: 12:09 DS: Diagnosis Discharge Diagnosis (1) Sepsis with acute liver failure and septic shock: Status: Acute (2) E. coli pyelonephritis: Status: Resolved (3) Gram-negative bacteremia: Status: Resolved (4) Toxic metabolic encephalopathy: Status: Resolved (5) Acute renal failure superimposed on chronic kidney disease: Status: Resolved (6) Insulin-requiring or dependent type II diabetes mellitus: Status: Acute (7) Acute dehydration: Status: Resolved (8) Thrombocytopenia: Status: Resolved (9) Steroid-induced adrenal suppression: Status: Acute (10) Hypoalbuminemia: Status: Resolved (11) Anemia: Status: Resolved (12) Metabolic acidosis: Status: Resolved (13) DVT prophylaxis: Status: Deleted (14) Discharge planning issues: Status: Deleted Discharge Plan Disposition Patient Disposition: Home Condition: Good Discharge Details Reason For Visit: Pyelonephritis, Sepsis, GAMAL, Acute Transaminitis Admit Date/Time: 10/12/22 16:19 Admit Provider: Timothy Ray Attending Provider: Timothy Ray Primary Care Provider: Kody Nolasco Hospital Course Hospital Course: This is a 76-year-old female patient with past medical history of psoriatic arthritis and has been on steroids for the last 3 months as well as a longstanding history of type 2 diabetes mellitus requiring insulin as well as a history of chronic UTIs.? Patient presented to the emergency department with altered mental status and hypotension and was brought in by EMS. Workup revealed septic shock secondary to left pyelonephritis w/ GAMAL, and hepatic insufficiency but no obstructive uropathy.? Patient had been unwell for 3 days prior to admission with progressive weakness and fatigue, lethargy, nausea and vomiting.? The morning of admission, she was, according to her daughter, poorly responsive having garbled speech was incoherent and incontinent of urine.? Patient had nausea and vomiting Patient had been on recent antibiotics for UTI.? Patient reportedly was hypotensive when EMS found her and found her to be tachypneic with a low-grade fever.? In the ED she became hypotensive 51/25. She was admitted to the ICU for septic shock due to pyelonephritis, found to have gram negative jimbo bacteremia.? She did require vasopressors briefly in the ICU, and insulin drip and meropenem.? She improved and was moved to the medical floor.? She was continued on antibiotics, had negative blood cultures and switched to ceftriaxone. She was seen by urology and did not require instrumentation.? She was seen and treated by PT.? She was discharged to home with cefpodoxime. She will benefit from home health nursing for medication management as well as monitor chronic disease progression and PT for strengthening.? Home Meds and New Rx's Prescriptions: New cefpodoxime 200 mg tablet 200 mg PO BID Qty: 10 0RF Rx Instructions: must administer with a meal/food Continued pramipexole 1 mg Tablet 1 mg PO 1XD pantoprazole 20 mg Tablet,Delayed Release (Dr/Ec) 20 mg PO 1XD lorazepam 0.5 mg Tablet 0.5 mg PO BID PRN ascorbic acid (vitamin C) [Vitamin C] 500 mg Tablet 500 mg PO 2XD mirtazapine 30 mg Tablet 30 mg PO DAILY aspirin 81 mg Tablet,Chewable 81 mg PO 1XD hydroxychloroquine 200 mg Tablet 200 mg PO 2XD sertraline 50 mg Tablet 50 mg PO DAILY insulin lispro 100 unit/mL Insulin Pen 1 sliding scale dose SUBCUT USEASDIRECTD Rx Instructions: am + supper pregabalin 150 mg Capsule 150 mg PO 2XD levothyroxine 112 mcg Capsule 112 mcg PO DAILY cranberry 450 mg Tablet 450 mg PO BID Rx Instructions: administer with meals Toujeo Max U-300 SoloStar 300 unit/mL (3 mL) Insulin Pen 1 unit SUBCUT 1XD Rx Instructions: bedtime Discharge Instructions Instructions: Cefpodoxime Proxetil (By mouth), Urinary Tract Infection in Women (DC), Bacteremia (DC) Stand Alone Forms: Nursing Discharge Form Referrals: Kody Nolasco PA [Primary Care Provider] - 11/07/22 1:30 pm (1-2 weeks) Activity:: Activity as Tolerated Equipment/Supplies:: No Equipment Needed Diet:: As Tolerated Discharge Orders Discharge Orders: Discharge Order (Routine); Ordered 10/19/22 Ordered By: Mara Hyde Discharge Data Discharge Date/Time-TO BE ENTERED AT DEPARTURE: 10/19/22 15:59 DS: Summary Time Spent with Patient providing and/or coordinating discharge services: Greater than 30 minutes Status at Discharge Functional status at discharge: uses cane/walker Overall status at discharge: patient is progressing back to baseline Mental Status: mental status grossly normal Speech and Movement: speech and movement normal Mood: congruent mood Affect: normal affect Exam Narrative Exam Narrative: General: elderly female who is A&Ox3, laying comfortably in bed, very interactive and appropriate HEENT: EOMI, MMM Heart: RRR, no m/r/g Lungs: CTAB Abdomen: soft, nondistended Extremities: no edema BLEs, wearing SCDs Psych Mental Status: mental status grossly normal Speech and Movement: speech and movement normal Mood: congruent mood Affect: normal affect DS: Data Vitals/I&O Vitals and I&O: Vital Signs Temperature 34.8 C L 10/19/22 11:09 Temperature Source Tympanic 10/19/22 11:09 Pulse 67 10/19/22 11:09 Pulse Rhythm Regular 10/19/22 08:00 Pulse 69 10/14/22 20:30 Respiratory Rate 18 10/19/22 08:00 Respiratory Effort Normal, Non-Labored 10/19/22 08:00 Respiratory Depth Normal 10/19/22 08:00 Respiratory Pattern Normal 10/19/22 08:00 Blood Pressure 143/56 H 10/19/22 11:09 Blood Pressure Mean 65 10/16/22 06:52 Blood Pressure Position Sitting 10/14/22 12:26 Pulse Oximetry 97 10/19/22 11:09 Oxygen Delivery Method Room Air 10/19/22 11:09 Oxygen Flow Rate 0 10/19/22 11:09 Pain Level 0 10/19/22 11:09 Comment rn notified 10/19/22 03:58 Intake & Output 10/18/22 10/19/22 10/19/22 23:59 11:59 23:59 Intake Total 1620 / 3.333 Output Total 1700 / 3100 1650 / 1650 Balance -80 / 863.333 -1640 / -1640 Intake: IV 2052. Oral 1610 / 1910 Output: Urine 1700 / 3100 1650 / 1650 Other: Urine Color Yellow Yellow Urine Appearance Clear Clear Sediment Urine Odor Normal Normal Comment VIA Bedside commode. Voiding Methods Bedside Commode Bedside Commode Data Completed and Pending Labs on day of discharge: Labs from last 24 hours 10/19/22 10/19/22 06:28 06:28 WBC 7.98 RBC 3.60 L Hgb 10.5 L Hct 31.7 L MCV 88 MCH 29.2 MCHC 33.1 RDW 15.5 H Plt Count 247 MPV 11.0 Immature Gran % 12.7 Neutrophils % 59.4 Lymphocytes % 17.8 Monocytes % 6.3 Eosinophils % 2.8 Basophils % 1.0 Nucleated RBC % 0.0 Absolute Neutrophils 4.75 Absolute Lymphocytes 1.42 Absolute Monocytes 0.50 Absolute Eosinophils 0.22 Absolute Basophils 0.08 RBC Morphology Normal Sodium 145 Potassium 3.6 Chloride 112 H Carbon Dioxide 23.1 Anion Gap 9.9 BUN 32 H Creatinine 1.2 H Est GFR (CKD-EPI 2020) 46.91 Glucose 156 H Calcium 8.4 L Magnesium 1.7 L C-Reactive Protein 1.15 H PFSH All Active Problems (Updated 10/20/22 @ 00:04 by DAIN AVINA) Chronic kidney disease (Chronic) Insulin-requiring or dependent type II diabetes mellitus (Acute) Sepsis with acute liver failure and septic shock (Acute) Septic shock (Acute) Acute pyelonephritis (Acute) Steroid-induced adrenal suppression (Acute) Social History Smoking/Tobacco Use Status: Never Smoking risk assessment performed?: Yes Alcohol Intake: current Drug use: Never Substance use type: does not use Do you feel safe at home: Yes Do you feel safe in your relationship?: Yes Time Spent with Patient Time Spent with Patient: 45-69 minutes Time was spent: preparing to see the patient(eg.review tests), ordering medications,tests, procedures, referring, communicating with other health health care attorney, indepentently interpreting results, counseling the patient and care coordination
[2022-10-19] MEDS: Hydrocortisone 10 MG TAB PO (13:14)
[2022-10-19] MEDS: cefTRIAXone 2 GM/50 ML BAG IVPB (13:14)
--- NOTE | 2022-10-26 14:27 | PT.INDS ---
PT Notes Visit Reasons: Pyelonephritis, Sepsis, GAMAL, Acute Transaminitis Physical Therapy Inpatient Discharge Summary Date: 10/19/2022 Dates of service: 10/14/2022 through 10/19/2022 This is a clinical summary of care provided for the duration of dates listed above. No charge was made in the completion of this documentation. Referring Doctor: Krystal Kendrick? BRICKLAYER APPRENTICE PT Orders: PT CONSULT:Eval/Treat Precautions: Fall. Standard. Activity as tolerated. Patient Profile/Admitting Diagnosis:? Patient is a 76-year-old female with admitted for management of E. coli pyelonephritis, sepsis with acute liver failure, steroid-induced adrenal suppression suppression, gram-negative bacteremia, toxic metabolic encephalopathy, hypoalbuminemia, anemia, type II DM, and metabolic acidosis. PMHX: All Active Problems?(Updated 10/12/22 @ 19:45 by Timothy Ray MD) Thrombocytopenia (Chronic) Full code status (Acute) Discharge planning issues (Acute) DVT prophylaxis (Acute) Chronic kidney disease (Chronic) Insulin-requiring or dependent type II diabetes mellitus (Acute) Sepsis with acute liver failure and septic shock (Acute) Septic shock (Acute) Acute pyelonephritis (Acute) Steroid-induced adrenal suppression (Acute) GAMAL (acute kidney injury) (Acute) Acute dehydration (Acute) Social History/Home Situation: Lives with daughter Hyun in a private home with 3 steps to enter with rails on both sides.? Independent with all indoor and outdoor ambulation using single-point cane.? Recently moved from her own residence in [place]. Equipment Owned/DME: [facility] Subjective: NT. See most recent DISTRICT LEADER notes. Objective: General Observation: NT. See most recent DISTRICT LEADER notes. Mental Status: NT. See most recent DISTRICT LEADER notes. Pain: NT. See most recent DISTRICT LEADER notes. Vital Signs: NT. See most recent DISTRICT LEADER notes. ROM: Right Upper Extremity: ? Shoulder Flexion WFL. Shoulder abduction WFL. Elbow flexion WFL. Wrist flexion WFL. Functional opening and closing of hand WFL. Left Upper Extremity:? Shoulder Flexion WFL. Shoulder abduction WFL. Elbow flexion WFL. Wrist flexion WFL. Functional opening and closing of hand WFL. Right Lower Extremity: Hip flexion WFL. Hip abduction WFL. Knee flexion about 20 degrees to 100 degrees.? Extension about -20 degrees ankle dorsiflexion WFL. Ankle plantarflexion WFL. Left Lower Extremity: Hip flexion WFL. Hip abduction WFL. Knee flexion WFL. Ankle dorsiflexion WFL. Ankle plantarflexion WFL. Strength: Right Upper Extremity: Shoulder flexors 4-/5. Shoulder abductors 4-/5. Elbow flexors 4-/5. Elbow extensors 4-/5. Dough Mixing Machine Operator strong. Left Upper Extremity: Shoulder flexors 4-/5. Shoulder abductors 4-/5. Elbow flexors 4-/5. Elbow extensors 4-/5. Dough Mixing Machine Operator strong. Right Lower Extremity: Hip flexors 3+/5. Hip abductors 4-/5. Knee flexors 3-/5. Knee extensors 3-/5. Ankle dorsiflexors 4-/5. Ankle plantarflexors 4-/5. Left Lower Extremity: Hip flexors 4-/5. Hip abductors 4-/5. Knee flexors 4-/5. Knee extensors 4-/5. Ankle dorsiflexors 4-/5. Ankle plantarflexors 4-/5. BED MOBILITY/TRANSFERS? Rolling L/R: independent Supine-sit: independent? Sit-supine: independent ? Sit-stand: independent? Stand-sit: independent ? Bed-Chair: standby ? Chair-bed: standby ? GAIT? Assistive Device: FWW, hinged knee brace B sides ? Weight bearing: full Assist: CGA, also help managing IV pole? Distance:? 225 feet? Deviation: Reduced step length, reduced santo. Patient reports mild dyspnea, does not appear out of breath. No loss of balance.? Balance: Static Sitting: Normal Dynamic Sitting: Normal Static Standing: Fair Dynamic Standing: Fair ASSESSMENT: Mild R knee buckling incrasing fall risk at this time,? Requires FWW for optimal stability with gait performance.? Will look into assessing R knee hinged brace in the next session for increased distance coverage.? Denies pain in R knee.? Patient presents with clinical signs and symptoms consistent with current/admitting diagnoses that have resulted to mobility limitations, gait instability, generalized weakness, and overall ADL decline as demonstrated by the following impairment level findings: 1.? Decreased strength to B UE/LE major muscle groups 2.? Impaired sitting/standing balance 3.? Impaired activity tolerance 4.? Limitation of joint range of motion in R knee 5.? R knee mild buckling Impairments are contributing to the following functional limitations: 1.? Decline in bed mobility skills 2.? Decline in transfer skills 3.? Difficulty with ambulation without assistive device and physical assistance 4.? Increased completion time for mobility ADL performance 5.? Increased risk for falls 6.? Difficulty with managing steps alone safely Goals: Goals X1 week 1. Supine-Sit independent MET 2. Sit-Supine independent MET 3. Sit-Stand independent MET 4. Stand-Sit independent with FWW MET 5. Bed-Chair independent with FWW NOT MET 6. Chair-Bed independent with FWW NOT MET 7. Independent gait on level surface with use of FWW for at least 300 feet without report of pain nor dyspnea NOT MET 8. Independent stair negotiation while holding onto B rails for at least 3 steps without report of pain nor dyspnea NOT MET 9. Independent with home exercise program NOT MET 10. Good static and dynamic standing balance/tolerance NOT MET DISCHARGE RECOMMENDATIONS: [] ? Home with no services [] [] ? Home with services [specify] [] ? Home with outpatient PT [] [] ? SNF for continued rehabilitation [] [] ? Executive Marketing Assistant Care [] [] ? SNF versus LTC based on ability to participate and progress [] [X]? HH PT vs SNF based on ability to progress towards goals. TREATMENT CODE/TIME: SC Thank you for the opportunity to participate in the care of this patient. Jessica Johnson PT, DPT, CLT [facility] [place], [place]
== END 2022-10-19 15:59 | disposition home or self-care (01) | DRG 871 ==
LOC: ER 17:11 → ICU 17:25 → MS 10-16 15:52
PROVIDERS: Family Medicine; Internal Medicine; Nurse Practitioner Family; Student in an Organized Health Care Education/Training Program; Admitting Provider Internal Medicine; Emergency Provider Emergency Medicine; PCP Physician Assistant Medical; Visit Provider Internal Medicine
DX: A41.51 Sepsis due to Escherichia coli [E. coli] (principal); G92.8 Other toxic encephalopathy; K72.00 Acute and subacute hepatic failure without coma; R65.21 Severe sepsis with septic shock; N17.0 Acute kidney failure with tubular necrosis; N10 Acute pyelonephritis; E27.3 Drug-induced adrenocortical insufficiency; F05 Delirium due to known physiological condition; E87.21 Acute metabolic acidosis; E11.65 Type 2 diabetes mellitus with hyperglycemia; Z79.4 Long term (current) use of insulin; E83.51 Hypocalcemia; B96.20 Unspecified Escherichia coli [E. coli] as the cause of diseases classified elsewhere; N20.0 Calculus of kidney; N18.9 Chronic kidney disease, unspecified; E11.22 Type 2 diabetes mellitus with diabetic chronic kidney disease; D69.6 Thrombocytopenia, unspecified; T38.0X5A Adverse effect of glucocorticoids and synthetic analogues, initial encounter; L40.50 Arthropathic psoriasis, unspecified; Z87.440 Personal history of urinary (tract) infections; E86.0 Dehydration; D64.9 Anemia, unspecified; R74.01 Elevation of levels of liver transaminase levels; E88.09 Other disorders of plasma-protein metabolism, not elsewhere classified; F03.90 Unspecified dementia, unspecified severity, without behavioral disturbance, psychotic disturbance, mood disturbance, and anxiety
CPT/HCPCS: 36410; 36415; 36569; 80048; 80053; 80076; 82805; 83690; 84145; 85384; 87040; 87077; 93308; 97110; 97116; 97162; 97530; 97535; 99221; 70450; 71046; 74176; 81003; 81015; 82607; 82728; 82746; 83540; 83550; 83605; 83615; 83735; 84100; 84295; 84439; 84443; 85025; 85379; 85610; 85730; 86140; 87086; 87186; 99232; 99239; 99291; J1630; J1644; J1720; J2405; J3475; J3490; J7060

== ENCOUNTER → 2022-10-13 07:44 | Outpatient (BNVA) | payer MEDICARE, SELFPAY | PROVIDERS: PCP Physician Assistant Medical; Referring Provider Physician Assistant Medical; Visit Provider Urology ==

== ENCOUNTER 2022-11-07 20:36 | Outpatient (REF) | payer MEDICARE, SELFPAY ==
[2022-11-07 21:07] LABS: Abs Immature Grans 0.02 10^3/uL (0.0-0.06); Absolute Basophil Count 0.05 10^3/uL (0.0-0.2); Absolute Eosinophil Count 0.23 10^3/uL (0.0-0.7); Absolute Lymphocyte Count 1.88 10^3/uL (1.2-3.4); Absolute Monocyte Count 0.28 10^3/uL (0.1-0.8); Absolute Neutrophil Count 1.92 10^3/uL (1.2-6.7); Basophils % 1.1; Eosinophils % 5.3; HCT 41.3 % (36.0-46.0); HGB 13.5 g/dL (11.2-15.7); Immature Grans % 0.5; Lymphocytes % 42.9; MCH 29.8 pg (27.0-33.0); MCHC 32.7 % (32.0-36.0); MCV 91 fL (80-95); MPV 11.3 fL (8.0-11.0); Monocytes % 6.4; Neutrophils % 43.8; Platelet Count 167 10^3/uL (130-400); RBC 4.53 10^6/uL (3.93-5.22); RDW 15.6 % (11.7-14.6); RDW-SD 52.2 fL; WBC 4.38 10^3/uL (4.4-10.8)
[2022-11-07 22:52] LABS: ALT 28 U/L (14-59); AST 30 U/L (15-37); Albumin 3.7 g/dL (3.4-5.0); Alkaline Phosphatase 108 U/L (46-116); Anion Gap 11.1 mmol/L (3-11); BUN 29 mg/dL (7-18); Bilirubin, Total 0.5 mg/dL (0.2-1.0); CO2 24.9 mmol/L (21.0-32.0); CREATININE 1.6 mg/dL (0.55-1.02); Chloride 107 mmol/L (98-107); Estimated GFR 33.01 (mL/min/1.73m2); Glucose 140 mg/dL (74-106); Magnesium 1.8 mg/dL (1.8-2.4); Potassium 4.3 mmol/L (3.5-5.1); Sodium 143 mmol/L (136-145); Total Protein 7.5 g/dL (6.4-8.2)
== END 2022-11-07 20:37 | disposition home or self-care (01) ==
LOC: NCHCN 20:36
PROVIDERS: PCP Physician Assistant Medical; Visit Provider Physician Assistant Medical
DX: N18.30 Chronic kidney disease, stage 3 unspecified (principal)
CPT/HCPCS: 80053; 83735; 85025

== ENCOUNTER 2022-11-09 18:15 | Outpatient (REF) | payer MEDICARE, SELFPAY ==
[2022-11-09 18:23] LABS: Bilirubin Negative (Negative); Blood Trace-intact (Negative); Clarity Sl Cloudy (Clear); Glucose Negative (Negative); Ketones Negative (Negative); Leukocyte Esterase Large (Negative); Nitrite Positive (Negative); Urobilinogen 0.2 mg/dL (Up to 0.2)
[2022-11-09 18:34] LABS: Bacteria Many HPF (Negative); C & S Indicated? C&S Done As Ordered; Casts Negative LPF (Negative); Crystals Negative HPF (Negative); Epithelial Cells Few HPF (Negative); Mucus Negative (Negative); RBC 0-2 HPF (0-2); WBC >50 HPF (0-5)
== END 2022-11-09 18:16 | disposition home or self-care (01) ==
LOC: NCHCN 18:15
PROVIDERS: PCP Physician Assistant Medical; Visit Provider Physician Assistant Medical
DX: N18.30 Chronic kidney disease, stage 3 unspecified (principal)
CPT/HCPCS: 87077; 81003; 81015; 87086; 87186

== ENCOUNTER 2022-11-10 00:54 | Outpatient (CLI) | payer MEDICARE, SELFPAY ==
--- NOTE | 2022-11-10 | DI.US_ITS ---
Exam(s) US ABDOMEN US RENAL EXAM: US ABDOMEN CLINICAL HISTORY: ELEVATED LFT'S,R79.89 TECHNIQUE: Ultrasound of complete upper abdomen performed using standard protocol. COMPARISON: CT scan of 10/12/2022. FINDINGS: There is no ascites evident. LIVER: There are no hepatic lesions evident nor obvious dilatation of intrahepatic ducts. GALLBLADDER/BILIARY: Gallbladder surgically absent The common hepatic duct isnot dilated, measuring 5mm at the level of natan hepatis. PANCREAS: There is no evidence of pancreatic mass nor dilatation of the pancreatic duct. SPLEEN: The spleen is not enlarged and there are no intrasplenic lesions evident. KIDNEYS:Right kidney unremarkable. There appear to be what is either mild hydronephrosis or parapelv ic cysts in left kidney. Previously present gas seen left kidney which was evident on the 10/12/2022 CT scan is difficult to appreciate on ultrasound exam. No obvious calculi evident. No solid masses evident. URINARY BLADDER: Prevoid volume 178 cc. Postvoid volume 37 cc. Bladder wall thickness upper normal. The left ureterovesical jet was identified. The right ureterovesical jet was not seen. Previously present [place] catheter is no longer seen. ABDOMINAL AORTA: There is no evidence of abdominal aortic aneurysm. IVC: Normal diameter where visualized. IMPRESSION: 1. Gallbladder is surgically absent. Biliary tree is not dilated. 2. Right kidney unremarkable. There is either mild hydronephrosis or parapelvic cysts in left kidne y. Please note that recent CT scan of 10/12/2022 revealed gas in the upper left collecting system. This is difficult to appreciate on ultrasound. If clinically indicated repeat CT scan can be perform ed. Right ureterovesical jet was not able to be identified on the present study. Postvoid volume is 37 cc. 3. No other significant ultrasound findings in the abdomen and there is no ascites evident. DATA REPOSITORY:
== END 2022-11-10 01:14 ==
LOC: DI 00:55
PROVIDERS: PCP Physician Assistant Medical; Visit Provider Physician Assistant Medical
DX: R79.89 Other specified abnormal findings of blood chemistry (principal); Q44.0 Agenesis, aplasia and hypoplasia of gallbladder; R93.422 Abnormal radiologic findings on diagnostic imaging of left kidney
CPT/HCPCS: 76700

== ENCOUNTER 2022-11-10 00:56 | Outpatient (CLI) | payer MEDICARE, SELFPAY | END 2022-11-10 01:16 | LOC: DI 00:56 | PROVIDERS: PCP Physician Assistant Medical; Visit Provider Nurse Practitioner | DX: R79.89 Other specified abnormal findings of blood chemistry (principal); Q44.0 Agenesis, aplasia and hypoplasia of gallbladder; N28.1 Cyst of kidney, acquired | CPT/HCPCS: 76770; 76700 ==

== ENCOUNTER 2022-12-05 18:52 | Outpatient (REF) | payer MEDICARE, SELFPAY ==
[2022-12-05 19:34] LABS: ALT 32 U/L (14-59); AST 27 U/L (15-37); Albumin 3.6 g/dL (3.4-5.0); Alkaline Phosphatase 115 U/L (46-116); Anion Gap 9.1 mmol/L (3-11); BUN 30 mg/dL (7-18); Bilirubin, Total 0.5 mg/dL (0.2-1.0); CO2 26.9 mmol/L (21.0-32.0); CREATININE 1.5 mg/dL (0.55-1.02); Calcium 9.1 mg/dL (8.5-10.1); Calculated LDL 52 mg/dL (<100); Chloride 108 mmol/L (98-107); Cholesterol 132 mg/dL (<200); Estimated GFR 35.67 (mL/min/1.73m2); Glucose 197 mg/dL (74-106); HDL Cholesterol 49 mg/dL (40-60); Potassium 4.6 mmol/L (3.5-5.1); Sodium 144 mmol/L (136-145); Total Protein 7.5 g/dL (6.4-8.2); Triglyceride 158 mg/dL (<150)
[2022-12-05 19:39] LABS: Hemoglobin A1C 6.9 % (<5.7)
== END 2022-12-05 18:53 | disposition home or self-care (01) ==
LOC: NCHCN 18:52
PROVIDERS: PCP Physician Assistant Medical; Visit Provider Physician Assistant Medical
DX: E11.9 Type 2 diabetes mellitus without complications (principal); N18.30 Chronic kidney disease, stage 3 unspecified; E78.5 Hyperlipidemia, unspecified
CPT/HCPCS: 80053; 80061; 83036

== ENCOUNTER → 2022-12-08 00:52 | Outpatient (CLI) | payer MEDICARE, SELFPAY ==
--- NOTE | 2022-12-08 | DI.RAD_ITS ---
Exam(s) XR KNEE LT 3V AP,LAT,YANELI EXAM: XR KNEE LT 3V AP,LAT,YANELI CLINICAL HISTORY: LT KNEE PAIN, M25.562. TECHNIQUE: 2D digital imaging was performed. Three views. COMPARISON: No exams were available for comparison FINDINGS: BONES: No acute fracture is present. No bony destructive lesion is seen. Periarticular spurring. JOINTS: Narrowing of the lateral femoral tibial joint space. No joint effusion is seen. SOFT TISSUE: Vascular calcifications. IMPRESSION: Degenerative changes, greatest of the lateral femoral tibial joint. DATA REPOSITORY: RADIATION DOSE DELIVERED:
== END ==
PROVIDERS: PCP Physician Assistant Medical; Visit Provider Physician Assistant Medical
DX: M17.12 Unilateral primary osteoarthritis, left knee (principal)
CPT/HCPCS: 73562

== ENCOUNTER → 2023-01-08 14:22 | Outpatient (BNVA) | payer MEDICARE, SELFPAY | PROVIDERS: PCP Physician Assistant Medical; Referring Provider Physician Assistant Medical; Visit Provider Student in an Organized Health Care Education/Training Program | DX: M17.12 Unilateral primary osteoarthritis, left knee (principal) | CPT/HCPCS: 20610; 99214; J7325 ==

== ENCOUNTER → 2023-01-17 01:13 | Outpatient (CLI) | payer MEDICARE, SELFPAY ==
--- NOTE | 2023-01-17 | DI.MAMMO_ITS ---
Exam(s) MAMMO SCREENING EXAM: MAMMO SCREENING CLINICAL HISTORY: SCREENING, Z12.39. TECHNIQUE: Bilateral full field digital CC and MLO mammographic images were obtained with 3D tomosyn thesis and utilizing computer aided detection (CAD). COMPARISON: Prior outside mammograms were apparently not able to be obtained for comparison. FINDINGS: Benign-appearing asymmetric densities and benign-appearing bilateral micro and macro calcifications a re noted There are no spiculated masses nor malignant appearing microcalcification groups. There is no significant architectural distortion nor skin thickening-retraction. IMPRESSION: No radiographic evidence of malignancy. BI-RADS Category 2 - Benign Findings Breast Density - Category B - Scattered areas of fibroglandular density Breast density Category C or D implies that the patient has dense breast tissue. Dense breast tissue can make it harder to find cancer on a mammogram. Dense breast tissue is also associated with an incr eased risk of breast cancer. This information about the result of the mammogram report was provided to the patient to raise their awareness. Use this report when you speak with the patient about their risks for breast cancer, which includes their family history. At that time, you may recommend additional screening tests (Ultrasoun d or MRI) as these tests may add significant information. A negative radiographic report should not delay biopsy if a dominant or clinically suspicious mass is present. Up to ten percent of cancers are not identified on mammography. A negative report may reinforce clinical impression. Adenosis and dense breasts may obscure an underlying neoplasm. False positive reports average 6 to 10%. Patient will receive a letter notifying them of these results.
== END ==
PROVIDERS: PCP Physician Assistant Medical; Visit Provider Physician Assistant Medical
DX: Z12.31 Encounter for screening mammogram for malignant neoplasm of breast (principal)
CPT/HCPCS: 77063; 77067

== ENCOUNTER 2023-04-06 15:32 | Outpatient (REF) | payer MEDICARE, SELFPAY ==
[2023-04-06 16:06] LABS: Anion Gap 9.3 mmol/L (3-11); BUN 32 mg/dL (7-18); CO2 27.7 mmol/L (21.0-32.0); CREATININE 1.6 mg/dL (0.55-1.02); Calcium 9.3 mg/dL (8.5-10.1); Chloride 108 mmol/L (98-107); Estimated GFR 33.01 (mL/min/1.73m2); Glucose 212 mg/dL (74-106); Sodium 145 mmol/L (136-145)
[2023-04-06 16:11] LABS: Hemoglobin A1C 6.7 % (<5.7)
[2023-04-06 16:55] LABS: COMMENT (LAB VIEW ONLY) 116.36 mg/dL; Prot/Crea Ur Ratio 0.45
== END 2023-04-06 15:33 | disposition home or self-care (01) ==
LOC: NCHCN 15:32
PROVIDERS: PCP Physician Assistant Medical; Visit Provider Physician Assistant Medical
DX: E11.9 Type 2 diabetes mellitus without complications (principal); N18.30 Chronic kidney disease, stage 3 unspecified
CPT/HCPCS: 80048; 82565; 83036; 84156

== ENCOUNTER → 2023-07-04 12:29 | Outpatient (BNVA) | payer MEDICARE, SELFPAY | PROVIDERS: PCP Physician Assistant Medical; Referring Provider Physician Assistant Medical; Visit Provider Nurse Practitioner Adult Health | DX: R41.3 Other amnesia (principal) | CPT/HCPCS: 99215 ==

== ENCOUNTER 2023-07-06 12:30 | Outpatient (REF) | payer MEDICARE, SELFPAY ==
[2023-07-06 17:05] LABS: ALT 38 U/L (14-59); AST 27 U/L (15-37); Albumin 3.8 g/dL (3.4-5.0); Alkaline Phosphatase 70 U/L (46-116); Anion Gap 10.7 mmol/L (3-11); BUN 45 mg/dL (7-18); Bilirubin, Total 0.5 mg/dL (0.2-1.0); CO2 26.3 mmol/L (21.0-32.0); CREATININE 1.7 mg/dL (0.55-1.02); Calcium 9.4 mg/dL (8.5-10.1); Chloride 109 mmol/L (98-107); Glucose 136 mg/dL (74-106); Potassium 4.2 mmol/L (3.5-5.1); Sodium 146 mmol/L (136-145); Total Protein 7.3 g/dL (6.4-8.2)
[2023-07-06 17:09] LABS: Hemoglobin A1C 6.5 % (<5.7)
== END 2023-07-06 12:31 | disposition home or self-care (01) ==
LOC: NCHCN 12:30
PROVIDERS: PCP Physician Assistant Medical; Visit Provider Physician Assistant Medical
DX: E11.9 Type 2 diabetes mellitus without complications (principal); E03.9 Hypothyroidism, unspecified; N18.30 Chronic kidney disease, stage 3 unspecified
CPT/HCPCS: 80053; 83036; 84443

== ENCOUNTER → 2023-09-12 12:58 | Outpatient (BNVA) | payer MEDICARE, SELFPAY | PROVIDERS: PCP Physician Assistant Medical; Referring Provider Physician Assistant Medical; Visit Provider Nurse Practitioner Adult Health | DX: G30.9 Alzheimer's disease, unspecified (principal); F02.80 Dementia in other diseases classified elsewhere, unspecified severity, without behavioral disturbance, psychotic disturbance, mood disturbance, and anxiety | CPT/HCPCS: 99215 ==

== ENCOUNTER 2023-10-15 15:17 | Outpatient (REF) | payer MEDICARE, SELFPAY ==
[2023-10-15 16:09] LABS: Hemoglobin A1C 6.3 % (<5.7)
[2023-10-15 16:23] LABS: ALT 41 U/L (14-59); AST 32 U/L (15-37); Albumin 3.9 g/dL (3.4-5.0); Alkaline Phosphatase 66 U/L (46-116); Anion Gap 10.6 mmol/L (3-11); BUN 39 mg/dL (7-18); Bilirubin, Total 0.5 mg/dL (0.2-1.0); CO2 24.4 mmol/L (21.0-32.0); CREATININE 1.8 mg/dL (0.55-1.02); Calcium 9.7 mg/dL (8.5-10.1); Calculated LDL 38 mg/dL (<100); Chloride 109 mmol/L (98-107); Cholesterol 107 mg/dL (<200); Estimated GFR 28.66 (mL/min/1.73m2); Glucose 172 mg/dL (74-106); HDL Cholesterol 45 mg/dL (40-60); Potassium 4.3 mmol/L (3.5-5.1); Sodium 144 mmol/L (136-145); TSH (W/Ref FT4) 0.11 uIU/mL (0.36-3.74); Total Protein 7.4 g/dL (6.4-8.2); Triglyceride 124 mg/dL (<150)
[2023-10-15 17:03] LABS: FREE T4 1.16 ng/dL (0.76-1.46)
== END 2023-10-15 15:18 | disposition home or self-care (01) ==
LOC: NCHCN 15:17
PROVIDERS: PCP Physician Assistant Medical; Visit Provider Physician Assistant Medical
DX: E11.9 Type 2 diabetes mellitus without complications (principal)
CPT/HCPCS: 80053; 80061; 83036; 84439; 84443

== ENCOUNTER 2024-01-14 19:59 | Outpatient (REF) | payer MEDICARE, SELFPAY ==
[2024-01-14 18:32] LABS: Hemoglobin A1C 6.5 % (<5.7)
[2024-01-14 18:38] LABS: Anion Gap 10.6 mmol/L (3-11); BUN 46 mg/dL (7-18); CO2 24.4 mmol/L (21.0-32.0); CREATININE 1.8 mg/dL (0.55-1.02); Calcium 9.5 mg/dL (8.5-10.1); Chloride 107 mmol/L (98-107); Estimated GFR 28.48 (mL/min/1.73m2); Glucose 122 mg/dL (74-106); Potassium 4.2 mmol/L (3.5-5.1); Sodium 142 mmol/L (136-145); TSH 0.08 uIU/Ml (0.36-3.74)
[2024-01-14 18:48] LABS: Magnesium 2.1 mg/dL (1.8-2.4)
== END 2024-01-14 20:00 | disposition home or self-care (01) ==
LOC: NCHCN 19:59
PROVIDERS: PCP Physician Assistant Medical; Visit Provider Physician Assistant Medical
DX: E11.9 Type 2 diabetes mellitus without complications (principal); E03.9 Hypothyroidism, unspecified; N18.30 Chronic kidney disease, stage 3 unspecified
CPT/HCPCS: 80048; 83036; 83735; 84443

== ENCOUNTER 2024-02-27 13:27 | Outpatient (REF) | payer MEDICARE, SELFPAY ==
[2024-02-27 17:19] LABS: TSH 0.19 uIU/mL (0.36-3.74)
== END 2024-02-27 13:28 | disposition home or self-care (01) ==
LOC: NCHCN 13:27
PROVIDERS: PCP Physician Assistant Medical; Visit Provider Physician Assistant Medical
DX: E03.9 Hypothyroidism, unspecified (principal)
CPT/HCPCS: 84443

== ENCOUNTER → 2024-03-12 12:34 | Outpatient (BNVA) | payer MEDICARE, SELFPAY | PROVIDERS: PCP Physician Assistant Medical; Referring Provider Physician Assistant Medical; Visit Provider Nurse Practitioner Adult Health | DX: G30.9 Alzheimer's disease, unspecified (principal); F02.80 Dementia in other diseases classified elsewhere, unspecified severity, without behavioral disturbance, psychotic disturbance, mood disturbance, and anxiety | CPT/HCPCS: 99214 ==

== ENCOUNTER 2024-04-14 18:52 | Outpatient (REF) | payer MEDICARE, SELFPAY ==
[2024-04-14 20:42] LABS: Anion Gap 8.5 mmol/L (3-11); BUN 41 mg/dL (7-18); CO2 26.5 mmol/L (21.0-32.0); CREATININE 1.7 mg/dL (0.55-1.02); Calcium 9.5 mg/dL (8.5-10.1); Chloride 111 mmol/L (98-107); Glucose 129 mg/dL (74-106); Potassium 4.4 mmol/L (3.5-5.1); Sodium 146 mmol/L (136-145); TSH (W/Ref FT4) 0.84 uIU/mL (0.36-3.74)
[2024-04-14 20:46] LABS: Hemoglobin A1C 6.3 % (<5.7)
== END 2024-04-14 18:53 | disposition home or self-care (01) ==
LOC: NCHCN 18:52
PROVIDERS: PCP Physician Assistant Medical; Visit Provider Physician Assistant Medical
DX: N18.30 Chronic kidney disease, stage 3 unspecified (principal); E03.9 Hypothyroidism, unspecified; E11.9 Type 2 diabetes mellitus without complications
CPT/HCPCS: 80048; 83036; 84443

== ENCOUNTER 2024-04-16 19:39 | Outpatient (REF) | payer MEDICARE, SELFPAY ==
[2024-04-16 20:35] LABS: COMMENT (LAB VIEW ONLY) 54.52 mg/dL
[2024-04-16 20:38] LABS: Microalb ug/mg Crea 112.1 ug/mg Cr
== END 2024-04-16 19:40 | disposition home or self-care (01) ==
LOC: NCHCN 19:39
PROVIDERS: PCP Physician Assistant Medical; Visit Provider Physician Assistant Medical
DX: N18.30 Chronic kidney disease, stage 3 unspecified (principal)
CPT/HCPCS: 82043; 82570

== ENCOUNTER → 2024-09-08 12:31 | Outpatient (BNVA) | payer MEDICARE, SELFPAY | PROVIDERS: PCP Physician Assistant Medical; Visit Provider Nurse Practitioner Adult Health | DX: G30.9 Alzheimer's disease, unspecified (principal); F02.80 Dementia in other diseases classified elsewhere, unspecified severity, without behavioral disturbance, psychotic disturbance, mood disturbance, and anxiety; E11.9 Type 2 diabetes mellitus without complications | CPT/HCPCS: 99213 ==

== ENCOUNTER 2024-10-14 14:53 | Outpatient (REF) | payer MEDICARE, SELFPAY ==
[2024-10-14 17:35] LABS: HCT 41.8 % (36.0-46.0); HGB 13.7 g/dL (11.2-15.7); MCH 29.5 pg (27.0-33.0); MCHC 32.8 % (32.0-36.0); MCV 90 fL (80-95); MPV 10.9 fL (8.0-11.0); Platelet Count 167 10^3/uL (130-400); RBC 4.65 10^6/uL (3.93-5.22); RDW 13.8 % (11.7-14.6); RDW-SD 45.3 fL; WBC 5.56 10^3/uL (4.4-10.8)
[2024-10-14 17:48] LABS: Hemoglobin A1C 7.1 % (<5.7)
[2024-10-14 17:50] LABS: ALT 58 U/L (14-59); AST 40 U/L (15-37); Alkaline Phosphatase 72 U/L (46-116); Anion Gap 9.3 mmol/L (3-11); BUN 47 mg/dL (7-18); Bilirubin, Total 0.5 mg/dL (0.2-1.0); CO2 25.7 mmol/L (21.0-32.0); CREATININE 1.9 mg/dL (0.55-1.02); Calcium 9.2 mg/dL (8.5-10.1); Calculated LDL 50 mg/dL (<100); Chloride 108 mmol/L (98-107); Cholesterol 113 mg/dL (<200); Estimated GFR 26.69 (mL/min/1.73m2); Glucose 219 mg/dL (74-106); HDL Cholesterol 44 mg/dL (>or=50); Potassium 4.6 mmol/L (3.5-5.1); Sodium 143 mmol/L (136-145); Total Protein 7.3 g/dL (6.4-8.2); Triglyceride 99 mg/dL (<150)
== END 2024-10-14 14:54 | disposition home or self-care (01) ==
LOC: NCHCN 14:53
PROVIDERS: PCP Physician Assistant Medical; Visit Provider Physician Assistant Medical
DX: N18.30 Chronic kidney disease, stage 3 unspecified (principal); E11.9 Type 2 diabetes mellitus without complications; E78.5 Hyperlipidemia, unspecified
CPT/HCPCS: 80053; 80061; 85027; 83036

== ENCOUNTER → 2024-12-18 12:58 | Outpatient (BNVA) | payer MEDICARE, SELFPAY | PROVIDERS: PCP Physician Assistant Medical; Referring Provider Physician Assistant Medical; Visit Provider Physician Assistant | DX: M17.12 Unilateral primary osteoarthritis, left knee (principal) | CPT/HCPCS: 20610; J7325 ==

== ENCOUNTER 2025-01-12 16:23 | Outpatient (REF) | payer MEDICARE, SELFPAY ==
[2025-01-12 19:37] LABS: Anion Gap 9.3 mmol/L (3-11); BUN 51 mg/dL (7-18); CO2 26.7 mmol/L (21.0-32.0); Calcium 9.8 mg/dL (8.5-10.1); Chloride 107 mmol/L (98-107); Estimated GFR 30.32 (mL/min/1.73m2); Glucose 157 mg/dL (74-106); Hemoglobin A1C 6.8 % (<5.7); Potassium 4.6 mmol/L (3.5-5.1); Sodium 143 mmol/L (136-145); TSH (W/Ref FT4) 1.75 uIU/mL (0.36-3.74)
== END 2025-01-12 16:24 | disposition home or self-care (01) ==
LOC: NCHCN 16:23
PROVIDERS: PCP Physician Assistant Medical; Visit Provider Physician Assistant Medical
DX: E11.9 Type 2 diabetes mellitus without complications (principal); E03.9 Hypothyroidism, unspecified
CPT/HCPCS: 80048; 83036; 84443

== ENCOUNTER → 2025-01-20 12:56 | Outpatient (BNVA) | payer MEDICARE, SELFPAY | PROVIDERS: PCP Physician Assistant Medical; Referring Provider Physician Assistant Medical; Visit Provider Podiatrist | DX: L60.3 Nail dystrophy (principal); B35.1 Tinea unguium; E11.42 Type 2 diabetes mellitus with diabetic polyneuropathy; E11.22 Type 2 diabetes mellitus with diabetic chronic kidney disease; N18.30 Chronic kidney disease, stage 3 unspecified; I73.89 Other specified peripheral vascular diseases; R20.8 Other disturbances of skin sensation; R25.2 Cramp and spasm; R09.89 Other specified symptoms and signs involving the circulatory and respiratory systems; L65.9 Nonscarring hair loss, unspecified; R23.8 Other skin changes; R23.4 Changes in skin texture; L60.2 Onychogryphosis; L60.8 Other nail disorders | CPT/HCPCS: 99214; 11721 ==

== ENCOUNTER 2025-02-11 16:20 | Outpatient (REF) | payer MEDICARE, SELFPAY | END 2025-02-11 16:21 | disposition home or self-care (01) | LOC: NCHCN 16:20 | PROVIDERS: PCP Physician Assistant Medical; Visit Provider Family Medicine | DX: N39.0 Urinary tract infection, site not specified (principal) | CPT/HCPCS: 87077; 87086; 87186 ==

== ENCOUNTER → 2025-04-06 00:40 | Outpatient (CLI) | payer MEDICARE, SELFPAY ==
--- NOTE | 2025-04-06 | DI.MAMMO_ITS ---
Exam(s) MAMMO SCREENING EXAM: MAMMO SCREENING CLINICAL HISTORY: SCREENING,Z12.31 TECHNIQUE: Bilateral full field digital CC and MLO mammographic images were obtained with 3D tomosynthesis and utilizing computer aided detection (CAD). COMPARISON: 2022 Prior exams from [place] are not available at this time. FINDINGS: Masses/Architectural Distortion: None seen. Microcalcifications: No suspicious pleomorphic-type are seen. Benign calcifications again noted. Skin Thickening/Nipple Retraction: None. IMPRESSION: 1. No significant interval change with no specific features of malignancy noted. 2. Unless there is more urgent need, screening mammography is recommended, as per [place] guidelines. BI-RADS Category 2 - Benign Findings Breast Density - Category B - There are scattered areas of fibroglandular density. Breast density category C or D implies that the patient has dense breast tissue. Dense breast tissue is very common and is not abnormal but dense breast tissue can make it harder to find cancer on a mammogram. Also, dense breast tissue may increase their breast cancer risk. This information about the result of the mammogram report was provided to the patient to raise their awareness. Use this report when you speak with the patient about their risks for breast cancer, which includes their family history. At that time, you may recommend for more screening tests (Ultrasound or MRI) as they might be useful based on their risk. A negative radiographic report should not delay biopsy if a dominant or clinically suspicious mass is present. Up to ten percent of cancers are not identified on mammography. A negative report may reinforce clinical impression. Adenosis and dense breasts may obscure an underlying neoplasm. False positive reports average 6 to 10%. Patient will receive a letter notifying them of these results.
== END ==
LOC: DI 00:40
PROVIDERS: PCP Physician Assistant Medical; Visit Provider Physician Assistant Medical
DX: Z12.31 Encounter for screening mammogram for malignant neoplasm of breast (principal)
CPT/HCPCS: 77063; 77067